=== PATIENT | female | born 2000 | race Caucasian/White ===

== ENCOUNTER 2023-10-16 09:05 | Emergency (ER) | payer OTHER, SELFPAY ==
[2023-10-16 09:09] VITALS: BP 141/84; PULSE 109; RESP 18; TEMP 36.7; O2SAT 99; BMI 28.3
--- NOTE | 2023-10-16 09:27 | ED.FEMALEGU1 ---
HPI - Female Genitourinary General Chief complaint: Vaginal Bleeding Stated complaint: SPOTTING AND CRAPING Time Seen by Provider: 10/16/23 09:14 Source: patient Mode of arrival: walk-in Limitations: no limitations History of Present Illness HPI Narrative: 23-year-old female presents to the emergency department for vaginal spotting. She is proximally seven weeks' based on her last period. She has no abdominal pain and there is been no trauma. It began last night. She is one para zero. Related Data Allergies Allergy/AdvReac Type Severity Reaction Status Date / Time No Known Drug Allergies Allergy Verified 10/16/23 09:12 Review of Systems ROS Narrative A ten point review of systems is negative except as noted above. PFSH PFSH Social History Smoking status: Never smoker Exam Narrative Exam Narrative: Nurses note and vital signs reviewed and patient is not hypoxic. General: The patient appears well and in no apparent distress. Patient is resting comfortably on cart. Skin: Warm, dry, no pallor noted. There is no rash noted. Head: Normocephalic, atraumatic Eye: Normal conjunctiva, no drainage Ears, Nose, Mouth, and Throat: oral mucosa is moist. Nares patent. Cardiovascular: Regular Rate and Rhythm Respiratory: Patient is in no distress, no accessory muscle use, lungs are clear to auscultation, no wheezing, rales or rhonchi Back: non-tender GI: soft nontender and nondistended Musculoskeletal: The patient has no evidence of calf tenderness, no pitting edema, symmetrical pulses noted bilaterally Neurological: A&O, normal speech Psychiatric: Cooperative Constitutional Vital Signs, click to edit/add: Last Vital Signs Temp 98.0 F 10/16/23 09:09 Pulse 85 10/16/23 11:03 Resp 16 10/16/23 11:03 BP 113/65 10/16/23 11:03 Pulse Ox 100 10/16/23 11:03 O2 Del Method Room Air 10/16/23 09:09 Course Vital Signs Vital signs: Vital Signs Temperature 98.0 F 10/16/23 09:09 Pulse Rate 109 H 10/16/23 09:09 Respiratory Rate 18 10/16/23 09:09 Blood Pressure 141/84 10/16/23 09:09 Pulse Oximetry 99 10/16/23 09:09 Oxygen Delivery Method Room Air 10/16/23 09:09 Temperature 98.0 F 10/16/23 09:09 Pulse Rate 85 10/16/23 11:03 Respiratory Rate 16 10/16/23 11:03 Blood Pressure 113/65 10/16/23 11:03 Pulse Oximetry 100 10/16/23 11:03 Oxygen Delivery Method Room Air 10/16/23 09:09 MDM - Female Genitourinary MDM Narrative Medical decision making narrative: the patient passed a large clot here and was sent for pathology. HCG titer is 5489 but ultrasound does not show intrauterine or ectopic. She has likely had miscarriage. 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 Findings are discussed thoroughly with the patient. blood type A positive. there is no clinical evidence of ectopiic . Differential Diagnosis Differential diagnosis: Likely other (threatened miscarriage, miscarriage, ectopic ) Lab Data Labs: Lab Results 10/16/23 Range/Units 09:21 WBC 9.1 (4.0-11.0) 10^3/uL RBC 4.05 L (4.20-5.40) 10^6/uL Hgb 12.3 (12.0-16.0) g/dL Hct 37.2 (36.0-48.0) % MCV 91.9 (81.0-99.0) fL MCH 30.4 (26.7-34.0) pg MCHC 33.1 (29.9-35.2) g/dL RDW 12.4 (11.0-15.0) % Plt Count 304 (150-450) 10^3/uL MPV 9.0 L (9.5-13.5) fL Neut % (Auto) 64.2 (43.0-75.0) % Lymph % (Auto) 29.4 (20.5-60.0) % [place] % (Auto) 4.8 (1.7-12.0) % Eos % (Auto) 0.7 L (0.9-7.0) % Baso % (Auto) 0.7 (0.2-2.0) % Neut # (Auto) 5.8 (1.4-6.5) 10^3/uL Lymph # (Auto) 2.7 (1.2-3.8) 10^3/uL [place] # (Auto) 0.4 (0.3-0.8) 10^3/uL Eos # (Auto) 0.1 (0.0-0.7) 10^3/uL Baso # (Auto) 0.1 (0.0-0.1) 10^3/uL Abs Immat Gran (auto) 0.02 (0.00-0.03) 10^3/uL Imm/Tot Granulo (auto) 0.2 (0.0-0.5) % Sodium 139 (136-145) mmol/L Potassium 3.3 L (3.5-5.1) mmol/L Chloride 102 (98-107) mmol/L Carbon Dioxide 22.6 (21.0-32.0) mmol/L Anion Gap 17.7 BUN 13.0 (7.0-18.0) mg/dL Creatinine 0.84 (0.55-1.02) mg/dL Est GFR ( Amer) >60 (>=60) Est GFR (Non-Af Amer) >60 (>=60) BUN/Creatinine Ratio 15.5 Glucose 99 (74-106) mg/dL Calcium 9.0 (8.5-10.1) mg/dL HCG, Quant 5489 mIU/mL Blood Type A Positive Imaging Data pelvic ultrasound: Radiologist's impression: Procedure: US OB transvaginal PROCEDURE: US OB transvaginal, 10/16/2023 10:25 AM EST CLINICAL INDICATIONS: Encounter for first trimester . Vaginal bleeding for 12 hours 1 para 0 LMP 08/22/2023 Expected gestational age by LMP: 7 weeks 6 days Expected MACIEJ by LMP: 05/28/2024 COMPARISON: None TECHNIQUE: Transvaginal first trimester obstetric sonogram, grayscale color and spectral evaluation. FINDINGS: Uterus: Mild heterogeneous thickening of the endotracheal echo complex is seen up to 2.0 cm. No sign of intrauterine confirmed. A focal uterine abnormality is not demonstrated. Maternal right ovary: 3.1 x 2.4 x 1.8 cm, volume 7 mL. Normal sonographic morphology. Maternal left ovary: 2.0 x 2.9 x 2.2 cm, volume 7 mL. Normal sonographic morphology. Mild pelvic free fluid in the cul-de-sac noted. IMPRESSION: 1. uncertain location. No sign of intrauterine or extrauterine identified. There is thickening of the endometrial echo complex up to 2.0 cm. Differential considerations include incomplete spontaneous with retained products of conception, too early to confirm by sonography, ectopic . Correlation with serial quantitative beta-hCG and follow-up sonography needed 2. Normal bilateral maternal ovarian sonographic morphology 3. Mild pelvic free fluid Electronically authenticated by: CARLYLE HENRY Date: 10/16/2023 11:08 Discharge Plan Discharge Chief Complaint: Vaginal Bleeding Clinical Impression: Vaginal bleeding in Patient Disposition: Home, Self-Care Time of Disposition Decision: 11:28 Condition: Good Mode of Transportation: Private Vehicle Instructions: Miscarriage (ED), Threatened Miscarriage (ED) Additional Instructions: Follow-up with Dr. Reed Stand Alone Forms: Portal Instructions Referrals: Physician,Non-Staff, MD [Primary Care Provider] - 1 week
[2023-10-16 09:33] LABS: Basophils Absolute Auto 0.1 10^3/uL (0.0-0.1); Basophils Percent Auto 0.7 % (0.2-2.0); Eosinophils Absolute Auto 0.1 10^3/uL (0.0-0.7); Eosinophils Percent Auto 0.7 % (0.9-7.0); Hematocrit 37.2 % (36.0-48.0); Hemoglobin 12.3 g/dL (12.0-16.0); Immature Granulocytes Abs Auto 0.02 10^3/uL (0.00-0.03); Immature Granulocytes Pct Auto 0.2 % (0.0-0.5); Lymphocytes Absolute Auto 2.7 10^3/uL (1.2-3.8); Lymphocytes Percent Auto 29.4 % (20.5-60.0); Mean Corpuscular HGB Conc 33.1 g/dL (29.9-35.2); Mean Corpuscular Hemoglobin 30.4 pg (26.7-34.0); Mean Corpuscular Volume 91.9 fL (81.0-99.0); Monocytes Absolute Auto 0.4 10^3/uL (0.3-0.8); Monocytes Percent Auto 4.8 % (1.7-12.0); Neutrophils Absolute Auto 5.8 10^3/uL (1.4-6.5); Neutrophils Percent Auto 64.2 % (43.0-75.0); Platelet Count 304 10^3/uL (150-450); Red Blood Count 4.05 10^6/uL (4.20-5.40); Red Cell Distribution Width 12.4 % (11.0-15.0); White Blood Count 9.1 10^3/uL (4.0-11.0)
[2023-10-16 09:39] LABS: Anion Gap 17.7; BUN Creatinine Ratio 15.5; Carbon Dioxide 22.6 mmol/L (21.0-32.0); Chloride 102 mmol/L (98-107); Estimated GFR (African America >60 (>=60); Estimated GFR (Non-African Ame >60 (>=60); Glucose 99 mg/dL (74-106); Potassium 3.3 mmol/L (3.5-5.1); Sodium 139 mmol/L (136-145)
[2023-10-16 10:07] LABS: HCG Quantitative 5489 mIU/mL
--- NOTE | 2023-10-16 10:23 | US_ITS ---
The [address] [address] Patient Name: ANU REBOLLEDO MRN: [id number] date: 2000 Sex: F Assigned Patient Location: ER Current Patient Location: ER Accession/Order Number: [id number] Exam Date: 10/16/2023 10:25 Report Date: 10/16/2023 11:08 At the request of: ЕЛЕНА BECKFORD Procedure: US OB transvaginal PROCEDURE: US OB transvaginal, 10/16/2023 10:25 AM EST CLINICAL INDICATIONS: Encounter for first trimester . Vaginal bleeding for 12 hours 1 para 0 LMP 08/22/2023 Expected gestational age by LMP: 7 weeks 6 days Expected MACIEJ by LMP: 05/28/2024 COMPARISON: None TECHNIQUE: Transvaginal first trimester obstetric sonogram, grayscale color and spectral evaluation. FINDINGS: Uterus: Mild heterogeneous thickening of the endotracheal echo complex is seen up to 2.0 cm. No sign of intrauterine confirmed. A focal uterine abnormality is not demonstrated. Maternal right ovary: 3.1 x 2.4 x 1.8 cm, volume 7 mL. Normal sonographic morphology. Maternal left ovary: 2.0 x 2.9 x 2.2 cm, volume 7 mL. Normal sonographic morphology. Mild pelvic free fluid in the cul-de-sac noted. US/US OB transvaginal IMPRESSION: 1. uncertain location. No sign of intrauterine or extrauterine identified. There is thickening of the endometrial echo complex up to 2.0 cm. Differential considerations include incomplete spontaneous with retained products of conception, too early to confirm by sonography, ectopic . Correlation with serial quantitative beta-hCG and follow-up sonography needed 2. Normal bilateral maternal ovarian sonographic morphology 3. Mild pelvic free fluid Electronically authenticated by: CARLYLE HENRY Date: 10/16/2023 11:08
[2023-10-16 11:03] VITALS: BP 113/65; PULSE 85; RESP 16; O2SAT 100
[2023-10-16 11:37] VITALS: BP 122/75; PULSE 81; RESP 16; O2SAT 100
== END 2023-10-16 11:41 | disposition home or self-care (01) ==
PROVIDERS: Emergency Provider Emergency Medicine
DX: O20.9 Hemorrhage in early pregnancy, unspecified (principal); Z3A.01 Less than 8 weeks gestation of pregnancy
CPT/HCPCS: 36415; 76817; 80048; 84702; 85025; 86900; 86901; 88304; 99284

== ENCOUNTER 2023-10-20 15:18 | Outpatient (OUT) | payer OTHER, SELFPAY ==
[2023-10-20 16:19] LABS: HCG Quantitative 154 mIU/mL
== END 2023-10-20 15:19 | disposition home or self-care (01) ==
LOC: LAB 15:19
PROVIDERS: Visit Provider Obstetrics & Gynecology
DX: O03.9 Complete or unspecified spontaneous abortion without complication (principal)
CPT/HCPCS: 36415; 84702

== ENCOUNTER 2023-10-28 08:26 | Outpatient (OUT) | payer OTHER, SELFPAY ==
--- OUTSIDE RECORDS SUMMARY | 2023-10-28 08:32 | XMS_ITS | CCD ---
Author Name Unknown Address [address] [place] [address] Organization [facility] Care Team Providers Care Oil Expert Name Role Phone ELIAS THOMAS Unavailable Unavailable ELIAS THOMAS Unavailable Unavailable ELIAS THOMAS Unavailable Unavailable ELIAS TOHMAS Unavailable Unavailable ELIAS THOMAS Primary Care Unavailable WILLI GATES Attending Unavailable Elias Thomas Primary Care Provider DO Neal Campoverde Attending Unavailable MAMIE CASILLAS Attending Unavailable Medications Current Medications Medication Drug Class(es) Dates Sig (Normalized) Sig (Original) cyclobenzaprine hydrochloride 10 mg oral tablet (1 source) Muscle Relaxant Start: 01-14-2020 End: 01-24-2020 take 1 tablet by mouth three times daily as needed for muscle spasms cyclobenzaprine (FLEXERIL) 10 MG tablet Take 1 tablet by mouth 3 times daily as needed for Muscle spasms 30 tablet 0 01/14/2020 01/24/2020 Active 2 ml ketorolac tromethamine 30 mg/ml cartridge (2 sources) Nonsteroidal Anti-inflammatory Drug, Cyclooxygenase Inhibitor Start: 01-14-2020 ketorolac (TORADOL) injection 60 mg Start: 01-14-2020 take 1 tablet by fernando th every six hours as needed for pain ketorolac (TORADOL) 10 MG tablet Take 1 tablet by mouth every 6 hours as needed for Pain 20 tablet 0 01/14/2020 Active Problems Active Problems Problem Classification Problem Date Documented Da te Episodic/Chronic External cause codes: Fall (1 source) Fall; Translations: [Fall, initial encounter] Other upper respiratory infections (1 source) Acute pharyngitis, unspecified; Translations: [Acute pharyngitis, unspecified] Onset: 10-07-2018 Episodic Superficial injury; contusion (1 source) Contusion of chest; Translations: [Contusion of chest wall, unspecified laterality, subsequent encounter] Episodic Tuberculosis (1 source) Tuberculosis Onset: 04-04-2018 Unclassified (2 sources) Acute pharyngitis, unspecified / J02.9(ICD-9) Onset: 10-07-2018 Unclassified (2 sources) Encounter for screening for other viral diseases / Z11.59(ICD-9) Onset: 04-04-2018 Past or Other Problems Problem Classification Problem Date Documented Da te Episodic/Chronic Unclassified (1 source) Encounter for screening for other viral diseases; Translations: [Encounter for screening for other viral diseases] Onset: 04-04-2018 Results Test Name Value Interpretation Reference Range Facil ity XR RIBS BILATERAL (3 VIEWS)o n 01-15-2020 XR RIBS BILATERAL (3 VIEWS) EXAMINATION: XR RIBS BILATERAL (3 VIEWS) CLINICAL HISTORY: Status post fall on concrete steps this morning. Back pain COMPARISONS: None FINDINGS: 5 views of the chest and ribs are submitted. The cardiac silhouette is of normal size configuration. Pulmonary vascular unremarkable. Right sided trachea. No focal infiltrates. No effusions. No Pneumothoraces. Additional views of left and right ribs show no fracture. IMPRESSION: NO ACUTE ACTIVE CARDIOPULMONARY PROCESS. NO ACUTE FRACTURES Interpreted by: Frantz Urias MD Signed by: Frantz Urias MD 01/14/20 Final result Normal [facility] XR RIBS BILATERAL (3 VIEWS)o n 01-14-2020 INR Coag (Bld) [Relative time] NO ACUTE ACTIVE CARDIOPULMONARY PROCESS. NO ACUTE FRACTURES [place], [place] EXAMINATION: XR RIBS BILATERAL (3 VIEWS) CLINICAL HISTORY: Status post fall on concrete steps this morning. Back pain COMPARISONS: None FINDINGS: 5 views of the chest and ribs are submitted. The cardiac silhouette is of normal size configuration. Pulmonary vascular unremarkable. Right sided trachea. No focal infiltrates. No effusions. No Pneumothoraces. Additional views of left and right ribs show no fracture. [place], [place] Vj, Chpo Incoming Radiant Results From [facility] - 01/14/2020 11:44 PM EDT EXAMINATION: XR RIBS BILATERAL (3 VIEWS) CLINICAL HISTORY: Status post fall on concrete steps this morning. Back pain COMPARISONS: None FINDINGS: 5 views of the chest and ribs are submitted. The cardiac silhouette is of normal size configuration. Pulmonary vascular unremarkable. Right sided trachea. No focal infiltrates. No effusions. No Pneumothoraces. Additional views of left and right ribs show no fracture. IMPRESSION: NO ACUTE ACTIVE CARDIOPULMONARY PROCESS. NO ACUTE FRACTURES [facility], [place] Culture, Respiratory (Upper) on 10-07-2018 Culture, Respiratory (Upper) BILL#: [id number] : 89 AGE: SEX:FFRANKSOURCE: Throat/Pharynx COLLECTED: 10/07/18 05:25ANTIBIOTICS AT ARABELLA.: RECEIVED : 10/10/18 11:49SITE:R E S U L T SRESPIRATORY CULTURE,UPPER FINAL 10/12/18 08:05NORMAL THROAT ANDREW. Normal [facility] Comment on above: Performed By: #### CXRSU ####[facility] [id number] [place] [address] Hepatitis B Surface Abon Hepatitis B Surface Ab 4.4 mIU/mL Normal <10 [facility] Comment on above: Result Comment: INTERPRETIVE CRITERIA:<1 0 mIU/mL....NONREACTIVE>=10 mIU/mL...REACTIVE.Patients receiving more than 5 mg/day of biotin may have interfin test results. A sample should be taken no sooner than eightafter previous dose. Contact [phone] for additional infor Hepatitis B Surface Antigeno n 04-04-2018 Hepatitis B Surface Antigen NONREACTIVE Normal NONREACTIVE [facility] Comment on above: Result Comment: Patients receiving more than 5 mg/day of biotin may have interfin test results. A sample should be taken no sooner than eightafter previous dose. Contact [phone] for additional infor Quantiferon- TB Gold in Tube on 04-04-2018 Quantiferon- Mitogen minus NIL 9.62 IU/mL Normal [facility] Comment on above: Performed By: #### QFTG ####[id number] [place] [address] Quantiferon- NIL 0.11 IU/mL Normal [facility] Comment on above: Result Comment: Performed by CARRIE broussard,[address] [place], [place] [id number] [email or web address], Ashwin Cramer MD - Lab. Director Performed By: #### Q FTG ####[id number] [place] [address] Quantiferon-TB Gold in Tube Negative Normal Negative [facility] Comment on above: Result Comment: INTERPRETIVE INFORMATION : QuantiFERON-TB Gold In-TubeInterferon gamma release is measured for specimens from eachof the three collection tubes. A qualitative result (Negative,Positive, or Indeterminate) is based on interpretation of thethree values, NIL, MITOGEN minus NIL (MITOGEN-NIL), and TBminus NIL (TB-NIL). The NIL value represents nonspecificreactivity produced by the patient specimen. The MITOGEN-NILvalue serves as the positive control for the patient specimen,demonstrating successful lymphocyte activity. The TB-NIL valuerepresents lymphocyte reactivity specifically stimulated bythe TB antigen. An overall Negative result does not completelyrule out TB infection.A false-positive result in the absence of other clinicalevidence of TB infection is not uncommon. Refer to: UpdatedGuidelines for Using Interferon Gamma Release Assays to DetectMycobacterium tuberculosis Infection --- [place], 2010(http://www.cdc.gov/mmwr/preview/mmwrhtml/zg3337c3.htm), forinformation concerning test performance in low-prevalencepopulations and use in occupational screening. Performed By: #### Q FTG ####[id number] [place] [address] Vital Signs Date Time Vital Sign Value Performing Clinician Facility 01-15-2020 00:0400 Body [facility] 98.01 [degF[facility] [place] 01-15-2020 00:0400 BP Diastolic 65 mm[Hg] [place] , [place] 01-15-2020 00:0400 BP Systolic 130 mm[Hg] [facility] [place] 01-15-2020 00:0400 Pulse (Heart Rate) 65 /min [facility], [place] 01-15-2020 00:0400 Pulse Oximetry 98 % [place], [place] 01-15-2020 00:11-0400 Respiratory Rate 18 /min Willi Gates [facility], SARAH 01-14-2020 22:40-0400 BMI (Body Mass Index) 30.79 kg/m2 Willi Gates [facility], SARAH 01-14-2020 22:40-0400 Body weight 83.92 kg Willi Gates [facility] , SARAH 01-14-2020 22:40-0400 Height 165.1 cm Willi Gates [place], [place] 04-04-2018 18:43-0400 Body mass index (BMI) [Ratio] 0.00 IU/mL [facility] Comment on above: Performed By: #### QFTG ####[id number] [place] [address] Encounters Encounter Date Encounter Type Care Provider Facility Start: 10-20-2023 End: 10-20-2023 ambulatory MAMIE CASILLAS Not Available Start: 07-29-2023 ambulatory DO Neal Campoverde Fac ility:[facility] Start: 01-15-2020 End: 01-15-2020 Emergency department patient visit ELIAS Tovar [facility] Start: 01-14-2020 End: 01-15-2020 Emergency department patient visit Willi Gates Work Phone: [facility] ED Comment on above: Contusion of chest w all, unspecified laterality, subsequent encounter (Primary Dx); Fall, initial encounter Start: 10-07-2018 Patient encounter procedure ELIAS THOMAS Facility:[facility] Start: 04-04-2018 Patient encounter procedure ELIAS HARVEYVickey Facility:[facility] Procedures Date Procedure Procedure Detail Performing Clinician Start: 01-15-2020 Radex ribs bilateral 3 views ELIAS THOMAS Start: 01-14-2020 Radex ribs bilateral 3 views Willi Gates Work Phone: Plan of Treatment Date Care Activity Detail Author Start: 2049 Shingles Vaccine (1 of 2) Shingles V accine (1 of 2) [place] Start: 06-25-2019 Influenza vaccination Flu vaccine (# 1) [place] Start: 2015 Chlamydia screen Chlamydia screen [place], [place] Start: 2014 HIV screen HIV screen [place], [place] Start: 2010 DTaP/Tdap/Td vaccine (6 - Tdap) DTaP/Tdap/Td vaccine (6 - Tdap) [place] Start: 2010 HPV vaccine (1 - 2-d ose series) HPV vaccine (1 - 2-dose series) [place] Start: 2005 Pneumococcal 0-64 ye ars Vaccine (1 of 1 - PPSV23) Pneumococcal 0-64 years Vaccine (1 of 1 - PPSV23) [place] Start: 2000 Varicella vaccine (1 of 2 - 2-dose childhood series) Varicella vaccine (1 of 2 - 2-dose childhood series) [place] Payers Date Payer Category Payer Unknown [id number] 2000 Unknown [id number] 2000 Unknown [id number] 2000 Unknown [id number] 1999 Unknown [id number] Unknown [employer] [address] xxxxxxxxxxxx Effective for all dates [phone] [address] [place] [address] xxxxxxxxxxxx [id number] Social History Date Type Detail Facility Start: 01-14-2020 Tobacco smoking stat us MAIS Current some day smoker [place] Start: 01-14-2020 Alcohol intake Current drinke r of alcohol (finding) [place] Sex Assigned At Not on file [place] Progress note 05-02-2021 Note Date & Type Note Facility 05-02-2021 Note HNO ID: [id number] Author: Christel Garrison, OD Service: ? Author Type: BREAST WORKER Type: Progress Notes Filed: 05/02/2021 12:10 PM Note Text: ASSESSMENT/PLAN: 1. 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 I have seen and examined this patient. I have discussed the case and the management of this patient's care with the Resident/Fellow, if applicable. I also have reviewed and agree with the assessment and plan as stated above and agree with all of its relevant components. Christel Garrison, OD May 02, 2021 12:10 PM [facility] Summary Purpose Family History No Family History Records FoundNo Family History Records FoundNo Family History Records FoundNo Family History Records FoundNo Family History Records Found Advance Directives No Advanced Directives Records FoundDocuments on File Type Date Recorded Patient Public Health Service Officer Expl anation Advance Directives and Living Will Power of Digital Advertising Analyst Discharge Instructions * Attachments The following attachments cannot be sent through Care Everywhere. * Chest Contusion ([place]) * Rib Contusion ([place]) documented in this encounter Assessments Diagnosis Contusion of chest wall, unspecified laterality, subsequent encounter Fall, initial encounter Additional Source Comments INFORMATION SOURCE (unrecogn ized section and content) DATE CREATED AUTHOR 10/15/2018 [facility] DATE CREATED AUTHOR AUTHOR'S ORGANIZ ATION 01/14/2020 [facility] DATE CREATED AUTHOR AUTHOR'S ORGANIZ ATION 11/22/2021 [facility] DATE CREATED AUTHOR AUTHOR'S ORGANIZ ATION 08/01/2023 [facility] DATE CREATED AUTHOR AUTHOR'S ORGANIZ ATION 10/22/2023 [facility] EPIC Reason for Visit (unrecogniz ed section and content) Reason Comments Fall Fell on concrete yamileth ps. Worried about cracking a rib FOR RECORDS PERTAINING TO PATIENTS WHO ARE OR HAVE BEEN ENROLLED IN A CHEMICAL DEPENDENCY/SUBSTANCEABUSE PROGRAM, SOME INFORMATION MAY BE OMITTED. This clinical summary was aggregated from multiple sources. Caution should be exercised in using it in the provision of clinical care. This summary normalizes information from multiple sources, and as a consequence, information in this document may materially change the coding, format and clinical context of patient data. In addition, data may be omitted in some cases. CLINICAL DECISIONS SHOULD BE BASED ON THE PRIMARY CLINICAL RECORDS. [facility] [employer] [facility]. provides no warranty or guarantee of the accuracy or completeness of information in this document.
[2023-10-28 09:21] LABS: HCG Quantitative 9 mIU/mL
== END 2023-10-28 08:27 | disposition home or self-care (01) ==
LOC: LAB 08:29
PROVIDERS: Visit Provider Obstetrics & Gynecology
DX: O03.9 Complete or unspecified spontaneous abortion without complication (principal)
CPT/HCPCS: 36415; 84702

== ENCOUNTER 2023-11-04 09:43 | Outpatient (OUT) | payer OTHER, SELFPAY ==
[2023-11-04 10:37] LABS: HCG Quantitative 2 mIU/mL
== END 2023-11-04 09:44 | disposition home or self-care (01) ==
LOC: LAB 09:44
PROVIDERS: Visit Provider Obstetrics & Gynecology
DX: O03.9 Complete or unspecified spontaneous abortion without complication (principal)
CPT/HCPCS: 36415; 84702

== ENCOUNTER 2024-02-14 12:20 | Emergency (ER) | payer OTHER, SELFPAY ==
[2024-02-14 12:25] VITALS: BP 123/80; PULSE 92; TEMP 36.5; O2SAT 98; BMI 32.4
[2024-02-14 12:42] LABS: Bilirubin Urine NEGATIVE (NEGATIVE); Blood Urine MODERATE (NEGATIVE); Clarity Urine CLEAR (CLEAR); Color Urine YELLOW (YELLOW); Glucose Urine UA NEGATIVE (NEGATIVE); Ketones Urine NEGATIVE (NEGATIVE); Leukocyte Esterase Urine TRACE (NEGATIVE); Nitrite Urine NEGATIVE (NEGATIVE); Protein Urine 30 mg/dL (NEG/TRACE); Specific Gravity Urine 1.025 (1.005-1.025); Urobilinogen Urine 0.2 EU/dL (0.2-1.0)
[2024-02-14 12:45] LABS: HCG Qualitative Urine* NEGATIVE (NEGATIVE)
[2024-02-14 12:56] LABS: Urine Microscopic Indicated YES
[2024-02-14 13:01] LABS: Bacteria Urine MODERATE #/HPF (NONE SEEN); Mucus Urine NONE SEEN (NONE SEEN)
[2024-02-14 13:02] LABS: Squamous Epithelial Cell Urine MODERATE #/LPF (NONE/RARE); Urine Culture Indicated YES
--- OUTSIDE RECORDS SUMMARY | 2024-02-14 13:04 | XMS_ITS | CCD ---
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 Role Phone ELIAS THOMAS Unavailable Unavailable ELIAS THOMAS Unavailable Unavailable ELIAS THOMAS Unavailable Unavailable ELIAS THOMAS Unavailable Unavailable ELIAS THOMAS Primary Care Unavailable WILLI GATES Attending Unavailable Elias Thomas Primary Care Provider [phone] MAMIE CASILLAS Attending Unavailable Neal Campoverde Attending Unavailable Medications Current Medications Medication Drug [...] Frantz Urias MD 01/14/20 Final result Normal [facility] XR RIBS BILATERAL (3 VIEWS)o n 01-14-2020 INR Coag (Bld) [Relative time] NO ACUTE ACTIVE CARDIOPULMONARY PROCESS. NO ACUTE FRACTURES [place], [place] EXAMINATION: XR RIBS BILATERAL (3 VIEWS) CLINICAL HISTORY: Status post fall on concrete steps this morning. Back pain COMPARISONS: None FINDINGS: 5 views of the chest and ribs are submitted. The cardiac silhouette is of normal size configuration. Pulmonary vascular unremarkable. Right sided trachea. No focal infiltrates. No effusions. No Pneumothoraces. Additional views of left and right ribs show no fracture. [place], [place] Vj, Chpo Incoming Radiant Results From [employer] - 01/14/2020 11:44 PM EDT EXAMINATION: XR [...] ACUTE ACTIVE CARDIOPULMONARY PROCESS. NO ACUTE FRACTURES [facility], [place] Culture, Respiratory (Upper) on 10-07-2018 Culture, Respiratory (Upper) BILL#: [id number] : 89 AGE: SEX:FFRANKSOURCE: Throat/Pharynx COLLECTED: 10/07/18 05:25ANTIBIOTICS AT ARABELLA.: RECEIVED : 10/10/18 11:49SITE:R E S U L T SRESPIRATORY CULTURE,UPPER FINAL 10/12/18 08:05NORMAL THROAT ANDREW. Normal [facility] Healthcare Comment on above: Performed By: #### CXRSU ####[facility] [address] [place] [address] Hepatitis B Surface Abon Hepatitis B Surface Ab 4.4 mIU/mL Normal <10 [facility] Healthcare Comment on above: Result Comment: INTERPRETIVE CRITERIA:<1 0 mIU/mL....NONREACTIVE>=10 mIU/mL...REACTIVE.Patients receiving more than 5 mg/day of biotin may have interfin test results. A sample should be taken no sooner than eightafter previous dose. Contact [phone] for additional infor Hepatitis B Surface Antigeno n 04-04-2018 Hepatitis B Surface Antigen NONREACTIVE Normal NONREACTIVE [facility] Comment on above: Result Comment: Patients receiving more than 5 mg/day of biotin may have interfin test results. A sample should be taken no sooner than eightafter previous dose. Contact [phone] for additional infor Quantiferon- TB Gold in Tube on 04-04-2018 Quantiferon- Mitogen minus NIL 9.62 IU/mL Normal [facility] Healthcare Comment on above: Performed By: #### QFTG ####[id number] [place] [address] Quantiferon- NIL 0.11 IU/mL Normal [facility] Comment on above: Result Comment: Performed by CARRIE broussard,[address] [place] [address] [employer], Ashwin Cramer MD - Lab. Director Performed By: #### Q FTG ####[id number] [place] [address] Quantiferon-TB Gold in Tube Negative Normal Negative [facility] Healthcare Comment on above: Result Comment: INTERPRETIVE INFORMATION [...] to DetectMycobacterium tuberculosis Infection --- [place], 2010(http://www.cdc.gov/mmwr/preview/mmwrhtml/rh4615x5.htm), forinformation concerning test performance in low-prevalencepopulations and use in occupational screening. Performed By: #### Q FTG ####[id number] [place] [address] Vital Signs Date Time Vital Sign Value Performing Clinician Facility 01-15-2020 00:0400 Body Temperature 98.01 [degF] Davy [facility], [place] 01-15-2020 00:110400 BP Diastolic 65 mm[Hg] [facility]y [facility] , [place] 01-15-2020 00:0400 BP Systolic 130 mm[Hg] [facility] [place] 01-15-2020 00:0400 Pulse (Heart Rate) 65 /min [facility], [place] 01-15-2020 00:0400 Pulse Oximetry 98 % [facility] , [place] 01-15-2020 00:0400 Respiratory Rate 18 /min Willi Gates [facility] H, SARAH 01-14-2020 22:40-0400 BMI (Body Mass Index) 30.79 kg/m2 Willi Gates [facility], SARAH 01-14-2020 22:40-0400 Body weight 83.92 kg Willi Gates [facility] , SARAH 01-14-2020 22:40-0400 Height 165.1 cm Willi Gates [place], [place] 04-04-2018 18:43-0400 Body mass index (BMI) [Ratio] 0.00 IU/mL [facility] Comment on above: Performed By: #### QFTG ####[id number] [place] [address] Encounters Encounter Date Encounter Type Care Provider Facility Start: 10-20-2023 End: 10-20-2023 ambulatory MAMIE SONJA Not Available Start: 07-29-2023 End: 10-28-2023 ambulatory Neal Campoverde Facility:[facility] Start: 01-15-2020 End: 01-15-2020 [facility] Start: 01-14-2020 End: 01-15-2020 Emergency department patient visit Willi Gates Work Phone: [facility] ED Comment on above: Contusion of chest w all, unspecified laterality, subsequent encounter (Primary Dx); Fall, initial encounter Start: 10-07-2018 Patient encounter procedure ELIAS THOMAS Facility:[facility] Start: 04-04-2018 [facility] Procedures Date Procedure Procedure Detail Performing Clinician Start: 01-15-2020 Radex ribs bilateral 3 views ELIAS THOMAS Start: 01-14-2020 Radex ribs bilateral 3 views Willi Stephanie Gates Work Phone: Plan of Treatment Date Care Activity Detail Author Start: 2049 Shingles Vaccine (1 of 2) Shingles V accine (1 of 2) [place], [place] Start: 06-25-2019 Influenza vaccination Flu vaccine (# 1) [place], [place] Start: 2015 Chlamydia screen Chlamydia screen [place], [place] Start: 2014 HIV screen HIV screen [place], [place] Start: 2010 DTaP/Tdap/Td vaccine (6 - Tdap) DTaP/Tdap/Td vaccine (6 - Tdap) [place], [place] Start: 2010 HPV vaccine (1 - 2-d ose series) HPV vaccine (1 - 2-dose series) [place], [place] Start: 2005 Pneumococcal 0-64 ye ars Vaccine (1 of 1 - PPSV23) Pneumococcal 0-64 years Vaccine (1 of 1 - PPSV23) [place], [place] Start: 2000 Varicella vaccine (1 of 2 - 2-dose childhood series) Varicella vaccine (1 of 2 - 2-dose childhood series) [place], [place] Payers Date Payer Category Payer Unknown [id number] 1999 Unknown [id number] 1999 Unknown [id number] 1999 Unknown [id number] 1999 Unknown [id number] Unknown [employer] [address] xxxxxxxxxxxx Effective for all dates [phone] [address] [place] [address] xxxxxxxxxxxx [id number] Social History Date Type Detail Facility Start: 01-14-2020 Tobacco smoking stat us MEIS Current some day smoker [place], [place] Start: 01-14-2020 Alcohol intake Current drinke r of alcohol (finding) [place], [place] Sex Assigned At Not on file [place], [place] Progress note 05-02-2021 Note Date & Type Note Facility 05-02-2021 Note HNO ID: [id number] Author: Christel Garrison, OD Service: ? Author Type: RETAIL AND PROMOTIONS COORDINATOR Type: Progress Notes Filed: 05/02/2021 12:10 PM [...] Garrison, OD May 02, 2021 12:10 PM [facility] Summary Purpose Family History No Family History Records FoundNo Family History Records FoundNo Family History Records FoundNo Family History Records FoundNo Family History Records Found Advance Directives No Advanced Directives Records FoundDocuments on File Type Date Recorded Patient Conventional Underwriter Expl anation Advance Directives and Living Will Power of Court Attendant Discharge Instructions * Attachments The following attachments cannot be sent through Care Everywhere. * Chest Contusion (Lithuanian) * Rib Contusion (Lithuanian) documented in this encounter Assessments Diagnosis Contusion of chest wall, unspecified laterality, subsequent encounter Fall, initial encounter Additional Source Comments INFORMATION SOURCE (unrecogn ized section and content) DATE CREATED AUTHOR 10/15/2018 [facility] DATE CREATED AUTHOR AUTHOR'S ORGANIZ ATION 01/14/[address] [facility] ital DATE CREATED AUTHOR AUTHOR'S ORGANIZ ATION 11/22/2021 [facility] DATE CREATED AUTHOR AUTHOR'S ORGANIZ ATION 10/22/2023 [facility] DATE CREATED AUTHOR AUTHOR'S ORGANIZ ATION 10/28/2023 [facility] Reason for Visit (unrecogniz ed section and [...] BE BASED ON THE PRIMARY CLINICAL RECORDS. [employer] [facility]. provides no warranty or guarantee of the accuracy or completeness of information in this document.
[2024-02-14 13:10] LABS: Basophils Absolute Auto 0.1 10^3/uL (0.0-0.1); Basophils Percent Auto 0.6 % (0.2-2.0); Eosinophils Absolute Auto 0.1 10^3/uL (0.0-0.7); Eosinophils Percent Auto 1.3 % (0.9-7.0); Hematocrit 39.8 % (36.0-48.0); Immature Granulocytes Abs Auto 0.01 10^3/uL (0.00-0.03); Immature Granulocytes Pct Auto 0.1 % (0.0-0.5); Lymphocytes Absolute Auto 3.7 10^3/uL (1.2-3.8); Lymphocytes Percent Auto 36.5 % (20.5-60.0); Mean Corpuscular HGB Conc 32.7 g/dL (29.9-35.2); Mean Corpuscular Hemoglobin 29.8 pg (26.7-34.0); Mean Corpuscular Volume 91.3 fL (81.0-99.0); Mean Platelet Volume 9.3 fL (9.5-13.5); Monocytes Absolute Auto 0.5 10^3/uL (0.3-0.8); Monocytes Percent Auto 4.5 % (1.7-12.0); Neutrophils Absolute Auto 5.8 10^3/uL (1.4-6.5); Platelet Count 302 10^3/uL (150-450); Red Blood Count 4.36 10^6/uL (4.20-5.40); Red Cell Distribution Width 12.2 % (11.0-15.0); White Blood Count 10.2 10^3/uL (4.0-11.0)
[2024-02-14] MEDS: KETOROLAC TROMETHAMINE 30 MG/ML VIAL 15 MG IVP (13:12)
[2024-02-14 13:19] LABS: Anion Gap 14.1; BUN Creatinine Ratio 10.9; Calcium 9.3 mg/dL (8.5-10.1); Carbon Dioxide 28.2 mmol/L (21.0-32.0); Chloride 102 mmol/L (98-107); Estimated GFR (African America >60 (>=60); Estimated GFR (Non-African Ame >60 (>=60); Glucose 94 mg/dL (74-106); Potassium 3.3 mmol/L (3.5-5.1); Sodium 141 mmol/L (136-145)
--- NOTE | 2024-02-14 13:35 | CT_ITS ---
The [address] [address] Patient Name: ANU REBOLLEDO MRN: [id number] date: 2000 Sex: F Assigned Patient Location: ER Current Patient Location: ER Accession/Order Number: [id number] Exam Date: 02/14/2024 13:30 Report Date: 02/14/2024 14:07 At the request of: JANE EDGAR Procedure: CT abdomen pelvis wo con EXAM: CT abdomen pelvis wo con HISTORY: left flank pain COMPARISON: None TECHNIQUE: CT abdomen and CT pelvis studies were performed without the use of intravenous contrast. Multiple axial images were obtained. Reformatted coronal and sagittal images were obtained and reviewed. FINDINGS: Abdomen: Calcified granuloma in the left lower lobe posteriorly. Likely adjacent mild atelectatic changes. Views of the liver and spleen fail to demonstrate evidence of focal mass in either organ. Gallbladder, pancreas and adrenal glands appear grossly unremarkable. Stomach appears grossly unremarkable. Bowel loops appear grossly unremarkable. Visualized vascular structures appear grossly intact. No evidence of adenopathy in the retroperitoneum. No obvious renal mass or obstructive uropathy. Suggestion mildly edematous appearance of the left renal cortex, consider early and/or mild left pyelonephritis. No evidence of renal or ureteral calculus. Small fat filled umbilical hernia without bowel content. Pelvis: No evidence of ureteral or bladder calculus. No evidence of obstructive uropathy. No obvious bladder mass or wall thickening. Uterus appears grossly unremarkable. Likely follicles in both ovaries without obvious focal mass. Small amount of free intraperitoneal fluid posteriorly greater on the left. A few calcifications likely representing phleboliths. Visualized vascular structures appear grossly intact. No evidence of adenopathy. The appendix is visualized and appears unremarkable. Bony structures appear grossly intact. Small calcification in the left femoral head like representing bone island. Mild ill-defined sclerosis of the right femoral head likely degenerative in nature. CT/CT abdomen pelvis wo con IMPRESSION: CT abdomen and CT pelvis studies demonstrate findings which can be correlated for early and/or mild left pyelonephritis. No obvious obstructive uropathy. Likely follicles in both ovaries. Small amount of free intraperitoneal fluid in the pelvis greater on the left. Mild ill-defined sclerosis of the superior right femoral head likely degenerative in nature. Electronically authenticated by: GINA ROA Date: 02/14/2024 14:07
[2024-02-14 14:02] VITALS: BP 97/63; PULSE 1; O2SAT 99
[2024-02-14 15:13] VITALS: BP 105/65; PULSE 78; O2SAT 99
--- NOTE | 2024-02-14 16:55 | ED_ITS ---
HPI HPI - General Adult General Chief complaint: Back Pain/Injury Stated complaint: LOWER BACK PAIN Time Seen by Provider: 02/14/24 12:30 Source: patient Mode of arrival: walk-in Limitations: no limitations History of Present Illness HPI narrative: 43-year-old female to the emergency room when she left-sided flank pain. Symptoms began suddenly over the last twenty-four hours. She denies any dysuria, urgency hematuria. She chills. She denies any vomiting. No history of urinary tract infections. History of kidney stones. Related Data Previous Rx's ?Medication ?Instructions ?Recorded cephalexin 500 mg capsule 500 mg PO Q6H 7 days #28 caps 02/14/24 phenazopyridine 200 mg tablet 200 mg PO TID PRN bladder spasms 02/14/24 (Pyridium) #9 tabs Allergies Allergy/AdvReac Type Severity Reaction Status Date / Time No Known Drug Allergies Allergy Verified 10/16/23 09:12 Opioid HPI Opioid Management Most Recent Opioid Data: Last Pain Scale 0 02/14/24 14:04 Last ED Pain Assessment 02/14/24 14:04 Last MAR Pain Assessment 02/14/24 13:12 Review of Systems ROS Status of ROS 10 or more systems reviewed and unremark able except as noted in history and below PFSH PFSH Social History Smoking status: Never smoker Exam Narrative Exam Narrative: VITALS: I have reviewed the triage vital signs. GENERAL: Well developed, well appearing adult in no acute distress. NEURO: Alert and oriented. Moves all extremities. Face is symmetric and expressive. EYES: PERRL. No scleral icterus or conjunctival injection. No discharge. HENT: Normocephalic, atraumatic. Hearing is grossly intact. Nares grossly patent and without discharge. Mucous membranes moist. NECK: No JVD. Patient moves neck without restriction. CARDIO: Rhythm regular. Normal rate. No murmur, rub, or gallop. Pulses equal bilaterally in the upper and lower extremity. No lower extremity edema. PULM: Lungs clear to auscultation in all narvaez. No wheezes, rales, or rhonchi. No conversational dyspnea. No splinting, stridor, or accessory muscle use. GI/: Abdomen is soft and non-tender. Normoactive bowel sounds. EXTREMITIES: Symmetric muscle bulk. No joint swelling. No clubbing, cyanosis, or deformity. SKIN: Warm and dry. Normal turgor. No rash or lesions appreciated. PSYCH: Mood, affect, and interaction is appropriate to the setting. Constitutional Vital Signs, click to edit/add: Last Vital Signs Temp 97.7 F 02/14/24 12:25 Pulse 78 02/14/24 15:13 Resp 18 02/14/24 15:13 BP 105/65 02/14/24 15:13 Pulse Ox 99 02/14/24 15:13 O2 Del Method Room Air 02/14/24 15:13 Course Vital Signs Vital signs: Vital Signs Temperature 97.7 F 02/14/24 12:25 Pulse Rate 92 H 02/14/24 12:25 Respiratory Rate 18 02/14/24 12:25 Blood Pressure 123/80 02/14/24 12:25 Pulse Oximetry 98 02/14/24 12:25 Oxygen Delivery Method Room Air 02/14/24 12:25 Temperature 97.7 F 02/14/24 12:25 Pulse Rate 78 02/14/24 15:13 Respiratory Rate 18 02/14/24 15:13 Blood Pressure 105/65 02/14/24 15:13 Pulse Oximetry 99 02/14/24 15:13 Oxygen Delivery Method Room Air 02/14/24 15:13 Medical Decision Making MDM Narrative Medical decision making narrative: Referral to health emergency room left flank pain. Labwork is unremarkable and CT scan does show a pyelonephritis. Kidney stone. Her symptoms are well controlled. She is referred for outpatient therapy. Keflex and Pyridium prescribed. Return precautions were discussed. All questions were answered. The patient was discharged. Medical Records Medical records reviewed: Yes I reviewed the patient's medical records Lab Data Lab results reviewed: Yes I reviewed the patient's lab results Labs: Lab Results 02/14/24 02/14/24 Range/Units 12:30 12:38 WBC 10.2 (4.0-11.0) 10^3/uL RBC 4.36 (4.20-5.40) 10^6/uL Hgb 13.0 (12.0-16.0) g/dL Hct 39.8 (36.0-48.0) % MCV 91.3 (81.0-99.0) fL MCH 29.8 (26.7-34.0) pg MCHC 32.7 (29.9-35.2) g/dL RDW 12.2 (11.0-15.0) % Plt Count 302 (150-450) 10^3/uL MPV 9.3 L (9.5-13.5) fL Neut % (Auto) 57.0 (43.0-75.0) % Lymph % (Auto) 36.5 (20.5-60.0) % [place] % (Auto) 4.5 (1.7-12.0) % Eos % (Auto) 1.3 (0.9-7.0) % Baso % (Auto) 0.6 (0.2-2.0) % Neut # (Auto) 5.8 (1.4-6.5) 10^3/uL Lymph # (Auto) 3.7 (1.2-3.8) 10^3/uL [place] # (Auto) 0.5 (0.3-0.8) 10^3/uL Eos # (Auto) 0.1 (0.0-0.7) 10^3/uL Baso # (Auto) 0.1 (0.0-0.1) 10^3/uL Abs Immat Gran (auto) 0.01 (0.00-0.03) 10^3/uL Imm/Tot Granulo (auto) 0.1 (0.0-0.5) % Sodium 141 (136-145) mmol/L Potassium 3.3 L (3.5-5.1) mmol/L Chloride 102 (98-107) mmol/L Carbon Dioxide 28.2 (21.0-32.0) mmol/L Anion Gap 14.1 BUN 10.0 (7.0-18.0) mg/dL Creatinine 0.92 (0.55-1.02) mg/dL Est GFR ( Amer) >60 (>=60) Est GFR (Non-Af Amer) >60 (>=60) BUN/Creatinine Ratio 10.9 Glucose 94 (74-106) mg/dL Calcium 9.3 (8.5-10.1) mg/dL Urine Color Yellow (YELLOW) Urine Clarity Clear (CLEAR) Urine pH 6.0 (5.0-9.0) Ur Specific [place] 1.025 (1.005-1.025) Urine Protein 30 A (NEG/TRACE) mg/dL Urine Glucose (UA) Negative (NEGATIVE) mg/dL Urine Ketones Negative (NEGATIVE) mg/dL Urine Occult Blood Moderate A (NEGATIVE) Urine Nitrite Negative (NEGATIVE) Urine Bilirubin Negative (NEGATIVE) Urine Urobilinogen 0.2 (0.2-1.0) EU/dL Ur Leukocyte Esterase Trace A (NEGATIVE) Urine RBC 10-20 A (0-2) #/HPF Urine WBC 10-20 A (NONE SEEN) #/HPF Ur Squamous Epith Cells Moderate A (NONE/RARE) #/LPF Urine Bacteria Moderate A (NONE SEEN) #/HPF Urine Mucus None seen (NONE SEEN) Ur Culture Indicated? Yes Urine HCG, Qual Negative (NEGATIVE) Imaging Data CT scan - abdomen: Attestation: I have reviewed the pertinent imaging results. Radiologist's impression: ITS Impressions Abdomen/Pelvis CT 02/14/24 13:35 IMPRESSION: CT abdomen and CT pelvis studies demonstrate findings which can be correlated for early and/or mild left pyelonephritis. No obvious obstructive uropathy. Likely follicles in both ovaries. Small amount of free intraperitoneal fluid in the pelvis greater on the left. Mild ill-defined sclerosis of the superior right femoral head likely degenerative in nature. Electronically authenticated by: GINA ROA Date: 02/14/2024 14:07 Discharge Plan Discharge Stand Alone Forms: Portal Instructions Chief Complaint: Back Pain/Injury Clinical Impression: Pyelonephritis Patient Disposition: Home, Self-Care Time of Disposition Decision: 14:46 Condition: Good Mode of Transportation: Private Vehicle Prescriptions / Home Meds: New phenazopyridine [Pyridium] 200 mg tablet 200 mg PO TID PRN (Reason: bladder spasms) Qty: 9 0RF cephalexin 500 mg capsule 500 mg PO Q6H 7 Days Qty: 28 0RF Print Language: St Helenian Instructions: Kidney Infection (ED) Additional Instructions: Follow-up with your doctor in the next three days. If he develops vomiting, high fevers, worsening symptoms return to emergency department immediately for evaluation. Referrals: Physician,Non-Staff, MD [Primary Care Provider] - 1 week Discharge Date/Time: 02/14/24 15:17
== END 2024-02-14 15:17 | disposition home or self-care (01) ==
PROVIDERS: Emergency Provider Student in an Organized Health Care Education/Training Program
DX: N12 Tubulo-interstitial nephritis, not specified as acute or chronic (principal); Z87.442 Personal history of urinary calculi
CPT/HCPCS: 36415; 74176; 80048; 81001; 84703; 85025; 87086; 87150; 87186; 96374; 99285

== ENCOUNTER 2024-02-29 16:04 | Outpatient (OUT) | payer OTHER, SELFPAY ==
[2024-02-29 16:36] LABS: HCG Quantitative 161 mIU/mL
== END 2024-02-29 16:05 | disposition home or self-care (01) ==
LOC: LAB 16:05
PROVIDERS: Visit Provider Obstetrics & Gynecology
DX: N92.6 Irregular menstruation, unspecified (principal)
CPT/HCPCS: 36415; 84702

== ENCOUNTER 2024-03-02 16:23 | Outpatient (OUT) | payer OTHER, SELFPAY ==
[2024-03-02 18:06] LABS: HCG Quantitative 448 mIU/mL
== END 2024-03-02 16:24 | disposition home or self-care (01) ==
LOC: LAB 16:24
PROVIDERS: Visit Provider Obstetrics & Gynecology
DX: N92.6 Irregular menstruation, unspecified (principal)
CPT/HCPCS: 36415; 84702

== ENCOUNTER 2024-04-07 09:07 | Outpatient (OUT) | payer OTHER, SELFPAY ==
--- NOTE | 2024-04-07 09:11 | US_ITS ---
[address] [address] Patient Name: ANU REBOLLEDO MRN: [id number] date: 2000 Sex: F Assigned Patient Location: [facility] Current Patient Location: [facility] Accession/Order Number: [id number] Exam Date: 04/07/2024 09:11 Report Date: 04/07/2024 09:58 At the request of: MAMIE CASILLAS Procedure: US OB transvaginal EXAMINATION: US OB transvaginal HISTORY: MISSED MENSES COMPARISON: No relevant comparison available. FINDINGS: Transvaginal images Mendenhall intrauterine gestation Gestational sac: 3.7 cm, 8 weeks 6 days CRL: 2.16 cm, 9 weeks 3 days Yolk sac: 5.1 mm Heart rate: 175 bpm Cervix: Closed, 4.3 cm The uterus is anteverted, anteflexed. 4.1 cm mass in the fundal myometrium likely representing a fibroid. The right ovary is not visualized Left ovary measures 5.5 x 3.1 x 4.0 cm. Corpus luteal cyst. Clinical age: 9 weeks 4 days Clinical MACIEJ: 11/06/2024 Ultrasound age: 9 weeks 3 days Ultrasound MACIEJ: 11/07/2024 US/US OB transvaginal IMPRESSION: Viable mendenhall intrauterine gestation measuring 9 weeks 3 days Electronically authenticated by: TABATHA VAUGHAN Date: 04/07/2024 09:58
--- OUTSIDE RECORDS SUMMARY | 2024-04-07 09:27 | XMS_ITS ---
Patient Summarization (C-CDA 2.1 CCD) Created on: April 07, 2024 ANU REBOLLEDO : 2000 Sex: Female Author Organization Sample organization Care Team Providers Care Mathematical Scientist Name Role Phone ELIAS THOMAS Unavailable Unavailable ELIAS THOMAS Unavailable Unavailable ELIAS THOMAS Unavailable Unavailable ELIAS THOMAS Unavailable Unavailable ELIAS THOMAS Primary Care Unavailable WILLI GATES Attending Unavailable Elias Thomas Primary Care Provider AMMIE CASILLAS Attending Unavailable Neal Campoverde Unavailable Encounters Encounter Date Encounter Type Care Provider Facility Start: 10-20-2023 End: 10-20-2023 ambulatory MAMIE CASILLAS Not Available Start: 07-29-2023 End: 10-28-2023 ambulatory Neal Campoverde Facility[place] Start: 01-15-2020 End: 01-15-2020 [facility]: 01-14-2020 End: 01-15-2020 Emergency department patient visit Willi Gates Work Phone: [facility] ED Comment on above: Contusion of chest w all, unspecified laterality, subsequent encounter (Primary Dx); Fall, initial encounter Start: 10-07-2018 Patient encounter [facility] Facility[facility] Start: 04-04-2018 Patient encounter procedure [facility] Facility[facility] Medications Current Medications Medication Drug Class(es) Dates [...] for Pain 20 tablet 0 01/14/2020 Active Payers Date Payer Category Payer Unknown [id number] 2000 Unknown [id number] 1999 Unknown [id number] 2000 Unknown [id number] 1999 Unknown [id number] 9 Unknown [employer] M [employer] [address] xxxxxxxxxxxx Effective for all dates [phone] [address] [place] [address] xxxxxxxxxxxx [id number] Plan of Treatment Date Care Activity Detail Author Start: 2049 Shingles Vaccine (1 of 2) Shingles V accine (1 of 2) [place] Start: 06-25-2019 Influenza vaccination Flu vaccine (# 1) [place] Start: 2015 Chlamydia screen Chlamydia screen [place], [place] Start: 2014 HIV screen HIV screen [place], [place] Start: 2010 DTaP/Tdap/Td vaccine (6 - Tdap) DTaP/Tdap/Td vaccine (6 - Tdap) [place] Start: 2010 HPV vaccine (1 - 2-d ose series) HPV vaccine (1 - 2-dose series) [place] Start: 2005 Pneumococcal 0-64 ye ars Vaccine (1 of 1 - PPSV23) Pneumococcal 0-64 years Vaccine (1 of 1 - PPSV23) [place] Start: 2000 Varicella vaccine (1 of 2 - 2-dose childhood series) Varicella vaccine (1 of 2 - 2-dose childhood series) [place] Problems Active Problems Problem Classification Problem Date [...] screening for other viral diseases] Onset: 04-04-2018 Procedures Date Procedure Procedure Detail Performing Clinician Start: 01-15-2020 Radex ribs bilateral 3 views ELIAS THOMAS Start: 01-14-2020 Radex ribs bilateral 3 views Willi Gates Work Phone: Results Test Name Value Interpretation Reference Range [...] Frantz Urias MD 01/14/20 Final result Normal [facility] XR RIBS BILATERAL (3 VIEWS)o n 01-14-2020 INR Coag (Bld) [Relative time] NO ACUTE ACTIVE CARDIOPULMONARY PROCESS. NO ACUTE FRACTURES [place] EXAMINATION: XR RIBS BILATERAL (3 VIEWS) CLINICAL HISTORY: Status post fall on concrete steps this morning. Back pain COMPARISONS: None FINDINGS: 5 views of the chest and ribs are submitted. The cardiac silhouette is of normal size configuration. Pulmonary vascular unremarkable. Right sided trachea. No focal infiltrates. No effusions. No Pneumothoraces. Additional views of left and right ribs show no fracture. [place], [place] Vj, Chpo Incoming Radiant Results From [employer] - 01/14/2020 11:44 PM EDT EXAMINATION: XR [...] ACUTE ACTIVE CARDIOPULMONARY PROCESS. NO ACUTE FRACTURES [place] Culture, Respiratory (Upper) on 10-07-2018 Culture, Respiratory (Upper) BILL#: [id number] : 89 AGE: SEX:FFRANKSOURCE: Throat/Pharynx COLLECTED: 10/07/18 05:25ANTIBIOTICS AT [place].: RECEIVED : 10/10/18 11:49SITE:R E S U L T SRESPIRATORY CULTURE,UPPER FINAL 10/12/18 08:05NORMAL THROAT ANDREW. Normal [facility] Comment on above: Performed By: #### CXRSU ####[facility] [id number] [place] [address] Hepatitis B Surface Abon Hepatitis B Surface Ab 4.4 mIU/mL Normal <10 [facility] Comment on above: Result Comment: INTERPRETIVE CRITERIA:<1 0 mIU/mL....NONREACTIVE>=10 mIU/mL...REACTIVE.Patients receiving more than 5 mg/day of biotin may have interfin test results. A sample should be taken no sooner than eightafter previous dose. Contact [phone] for additional infor Hepatitis B Surface Antigeno n 04-04-2018 Hepatitis B Surface Antigen NONREACTIVE Normal NONREACTIVE [facility] Comment on above: Result Comment: Patients receiving more than 5 mg/day of biotin may have interfin test results. A sample should be taken no sooner than eightafter previous dose. Contact [phone] for additional infor Quantiferon- TB Gold in Tube on 04-04-2018 Quantiferon- Mitogen minus NIL 9.62 IU/mL Normal [facility] Comment on above: Performed By: #### QFTG ####[id number] [place] [address] Quantiferon- NIL 0.11 IU/mL Normal [facility] Comment on above: Result Comment: Performed by CARRIE [address]ouss[address] [place] [address] [email or web address], Ashwin Cramer MD - Lab. Director Performed By: #### Q FTG ####[id number] [place] [address] Quantiferon-TB Gold in Tube Negative Normal Negative [facility] Comment on above: Result Comment: INTERPRETIVE INFORMATION [...] to DetectMycobacterium tuberculosis Infection --- [place], 2009(http://www.cdc.gov/mmwr/preview/mmwrhtml/bq0137u8.htm), forinformation concerning test performance in low-prevalencepopulations and use in occupational screening. Performed By: #### Q FTG ####[id number] [place] [address] Social History Date Type Detail Facility Start: 01-14-2020 Tobacco smoking stat us [facility] Current some day smoker [place] Start: 01-14-2020 Alcohol intake Current drinke r of alcohol (finding) [place] Sex Assigned At Not on file [place] Vital Signs Date Time Vital Sign Value Performing Clinician Facility 01-15-2020 00:11-0400 Body Temperature 98.01 [degF] [place], [place] 01-15-2020 00:11-0400 BP Diastolic 65 mm[Hg] [place], [place] 01-15-2020 00:11-0400 BP Systolic 130 mm[Hg] [place] 01-15-2020 00:11-0400 Pulse (Heart Rate) 65 /min [place] 01-15-2020 00:11-0400 Pulse Oximetry 98 % [place] 01-15-2020 00:11-0400 Respiratory Rate 18 /min [place] 01-14-2020 22:40-0400 BMI (Body Mass Index) 30.79 kg/m2 [place] 01-14-2020 22:40-0400 Body weight 83.92 kg [place] 01-14-2020 22:40-0400 Height 165.1 cm [place] 04-04-2018 18:43-0400 Body mass index (BMI) [Ratio] 0.00 IU/mL ELIAS THOMAS [facility] Comment on above: Performed By: #### QFTG ####[id number] [place] [address] Progress note 05-02-2021 Note Date & Type Note Facility 05-02-2021 Note HNO ID: [id number] Author: Christel Garrison, OD Service: ? Author Type: GIFT SHOP ASSISTANT Type: Progress Notes Filed: 05/02/2021 12:10 PM [...] Garrison, OD May 02, 2021 12:10 PM [facility] Summary Purpose Family History No Family History Records FoundNo Family History Records FoundNo Family History Records FoundNo Family History Records FoundNo Family History Records Found Advance Directives No Advanced Directives Records FoundDocuments on File Type Date Recorded Patient Business Representative Expl anation Advance Directives and Living Will Power of Public Information Director Discharge Instructions * Attachments The following attachments cannot be sent through Care Everywhere. * Chest Contusion ([place]osta [place]ican) * Rib Contusion ([place]) documented in this encounter Assessments Diagnosis Contusion of chest wall, unspecified laterality, subsequent encounter Fall, initial encounter Additional Source Comments INFORMATION SOURCE (unrecogn ized section and content) DATE CREATED AUTHOR 10/15/2018 [facility] DATE CREATED AUTHOR AUTHOR'S ORGANIZ ATION 01/14/2020 [facility] DATE CREATED AUTHOR AUTHOR'S ORGANIZ ATION 11/22/2021 [facility] DATE CREATED AUTHOR AUTHOR'S ORGANIZ ATION 10/22/2023 [facility] DATE CREATED AUTHOR AUTHOR'S ORGANIZ ATION 10/28/2023 [facility] Reason for Visit (unrecogniz ed section and [...] BE BASED ON THE PRIMARY CLINICAL RECORDS. [facility]. provides no warranty or guarantee of the accuracy or completeness of information in this document.
== END 2024-04-07 09:08 | disposition home or self-care (01) ==
LOC: NOMS 09:07
PROVIDERS: Visit Provider Obstetrics & Gynecology
DX: Z34.91 Encounter for supervision of normal pregnancy, unspecified, first trimester (principal); Z3A.09 9 weeks gestation of pregnancy; N92.6 Irregular menstruation, unspecified
CPT/HCPCS: 76817

== ENCOUNTER 2024-04-26 08:11 | Outpatient (OUT) | payer OTHER, SELFPAY ==
--- OUTSIDE RECORDS SUMMARY | 2024-04-26 08:14 | XMS_ITS | CCD ---
Author Organization [facility] Care Team Providers Care Technology Program Manager Name Role Phone ELIAS THOMAS Unavailable Unavailable ELIAS THOMAS Unavailable Unavailable ELIAS THOMAS Unavailable Unavailable ELIAS THOMAS Unavailable Unavailable ELIAS THOMAS Primary Care Unavailable WILLI GATES Attending Unavailable Elias Thomas Primary Care Provider Neal Campoverde Attending Unavailable MAMIE CASILLAS Attending [...] Frantz Urias MD 01/14/20 Final result Normal [facility] XR RIBS BILATERAL (3 VIEWS)o n 01-14-2020 INR Coag (Bld) [Relative time] NO ACUTE ACTIVE CARDIOPULMONARY PROCESS. NO ACUTE FRACTURES [place] EXAMINATION: XR RIBS BILATERAL (3 VIEWS) CLINICAL HISTORY: Status post fall on concrete steps this morning. Back pain COMPARISONS: None FINDINGS: 5 views of the chest and ribs are submitted. The cardiac silhouette is of normal size configuration. Pulmonary vascular unremarkable. Right sided trachea. No focal infiltrates. No effusions. No Pneumothoraces. Additional views of left and right ribs show no fracture. [place], [place] Vj, Chpo Incoming Radiant Results From [employer] - 01/14/2020 11:44 PM EDT EXAMINATION: XR [...] ACUTE ACTIVE CARDIOPULMONARY PROCESS. NO ACUTE FRACTURES [facility], [place] Culture, Respiratory (Upper) on 10-07-2018 Culture, Respiratory (Upper) BILL#: [id number] : [birth year] AGE: SEX:FFRANKSOURCE: Throat/Pharynx COLLECTED: 10/07/18 05:25ANTIBIOTICS AT ARABELLA.: RECEIVED : 10/10/18 11:49SITE:R E S U L T SRESPIRATORY CULTURE,UPPER FINAL 10/12/18 08:05NORMAL THROAT ANDREW. Normal [facility] Comment on above: Performed By: #### CXRSU ####[facility] [address] [place] [address] Hepatitis B Surface Abon Hepatitis B Surface Ab 4.4 mIU/mL Normal <10 [facility] Comment on above: Result Comment: INTERPRETIVE CRITERIA:<1 0 mIU/mL....NONREACTIVE>=10 mIU/mL...REACTIVE.Patients receiving more than 5 mg/day of biotin may have interfin test results. A sample should be taken no sooner than eightafter previous dose. Contact [phone] for additional infor Hepatitis B Surface Antigeno n 04-04-2018 Hepatitis B Surface Antigen NONREACTIVE Normal NONREACTIVE [facility] Comment on above: Result Comment: Patients receiving more than 5 mg/day of biotin may have interfin test results. A sample should be taken no sooner than eightafter previous dose. Contact [phone] for additional infor Quantiferon- TB Gold in Tube on 04-04-2018 Quantiferon- Mitogen minus NIL 9.62 IU/mL Normal [facility] Comment on above: Performed By: #### QFTG ####[id number] [place] [address] Quantiferon- NIL 0.11 IU/mL Normal [facility] Comment on above: Result Comment: Performed by CARRIE [address] [place] [address] [employer]cs[employer], Ashwin Cramer MD - Lab. Director Performed By: #### Q FTG ####[id number] [place] [address] Quantiferon-TB Gold in Tube Negative Normal Negative [facility] Comment on above: Result Comment: INTERPRETIVE [...] to DetectMycobacterium tuberculosis Infection --- [place], 2010(http://www.cdc.gov/mmwr/preview/mmwrhtml/dn1060m1.htm), forinformation concerning test performance in low-prevalencepopulations and use in occupational screening. Performed By: #### Q FTG ####[id number] [place] [address] Vital Signs Date Time Vital Sign Value Performing Clinician Facility 01-15-2020 00:0400 Body Temperature 98.01 [degF] [facility] [place] 01-15-2020 00:0400 BP Diastolic 65 mm[Hg] [facility] , [place] 01-15-2020 00:0400 BP Systolic 130 mm[Hg] [facility] [place] 01-15-2020 00:0400 Pulse (Heart Rate) 65 /min [facility], [place] 01-15-2020 00:0400 Pulse Oximetry 98 % [facility] , [place] 01-15-2020 00:0400 Respiratory Rate 18 /min [facility] 01-14-2020 22:40-0400 BMI (Body Mass Index) 30.79 kg/m2 Willi Gates [facility], [place] 01-14-2020 22:40-0400 Body weight 83.92 kg Willi Gates [facility] , [place] 01-14-2020 22:40-0400 Height 165.1 cm [place] 04-04-2018 18:43-0400 Body mass index (BMI) [Ratio] 0.00 IU/mL [facility] Comment on above: Performed By: #### QFTG ####[id number] [place] [address] Encounters Encounter Date Encounter Type Care Provider Facility Start: 04-07-2024 End: 04-07-2024 ambulatory MAMIE SONJA Not Available Start: 10-20-2023 End: 10-20-2023 ambulatory MAMIE SONJA Not Available Start: 07-29-2023 End: 10-28-2023 ambulatory Neal Campoverde [facility] Start: 01-15-2020 End: 01-15-2020 [facility] Start: 01-14-2020 End: 01-15-2020 Emergency department patient visit Willi Gates Work Phone: [facility] Comment on above: Contusion of chest w all, unspecified laterality, subsequent encounter (Primary Dx); Fall, initial encounter Start: 10-07-2018 Patient encounter procedure ELIAS THOMAS [facility] Start: 04-04-2018 [facility] Procedures Date Procedure Procedure Detail Performing Clinician Start: 01-15-2020 Radex ribs bilateral 3 views ELIAS THOMAS Start: 01-14-2020 Radex ribs bilateral 3 views Willi Gates Work Phone: Plan of Treatment Date Care Activity Detail Author Start: 2049 Shingles Vaccine (1 of 2) Shingles V accine (1 of 2) [place] Start: 06-25-2019 Influenza vaccination Flu vaccine (# 1) [place] Start: 2015 Chlamydia screen Chlamydia screen [place], [place] Start: 2014 HIV screen HIV screen [place], [place] Start: 2010 DTaP/Tdap/Td vaccine (6 - Tdap) DTaP/Tdap/Td vaccine (6 - Tdap) [place], [place] Start: 2010 HPV vaccine (1 - 2-d ose series) HPV vaccine (1 - 2-dose series) [place] Start: 2005 Pneumococcal 0-64 ye ars Vaccine (1 of 1 - PPSV23) Pneumococcal 0-64 years Vaccine (1 of 1 - PPSV23) [place], [place] Start: 2000 Varicella vaccine (1 of 2 - 2-dose childhood series) Varicella vaccine (1 of 2 - 2-dose childhood series) [place], [place] Payers Date Payer Category Payer Unknown [id number] 2000 Unknown [id number] 1999 Unknown [id number] 1999 Unknown [id number] 1999 Unknown [id number] 9 1999 Unknown [id number] 9 Unknown [employer] M [employer] MUTUAL [address] xxxxxxxxxxxx Effective for all dates [phone] [address] [place] [address] xxxxxxxxxxxx [id number] Social History Date Type Detail Facility Start: [facility]-14-[facility] [place] Start: 01-14-2020 Alcohol intake [facility] r [facility] (finding[facility] file [facility] Progress note 05-02-2021 Note Date & Type Note Facility 05-02-2021 Note HNO ID: [id number] Author: Christel Garrison OD Service: ? Author Type: POLICE AIDE Type: Progress Notes Filed: 05/02/2021 12:10 PM [...] all of its relevant components. Christel Garrison, SANDRINE May 02, 2021 12:10 PM [facility] Summary Purpose Family History No Family History Records FoundNo Family History Records FoundNo Family History Records FoundNo Family History Records FoundNo Family History Records Found Advance Directives No Advanced Directives Records FoundDocuments on File Type Date Recorded Patient Clinic Lead Expl anation Advance Directives and Living Will Power of Insulation Technician Discharge Instructions * Attachments The following attachments cannot be sent through Care Everywhere. * Chest Contusion (Angolan) * Rib Contusion (Angolan) documented in this encounter Assessments Diagnosis Contusion of chest wall, unspecified laterality, subsequent encounter Fall, initial encounter Additional Source Comments INFORMATION SOURCE (unrecogn ized section and content) DATE CREATED AUTHOR 10/15/2018 [facility] DATE CREATED AUTHOR AUTHOR'S ORGANIZ ATION 01/14/2020 [facility] DATE CREATED AUTHOR AUTHOR'S ORGANIZ ATION 11/22/2021 [facility] DATE CREATED AUTHOR AUTHOR'S ORGANIZ ATION 10/28/2023 [facility] DATE CREATED AUTHOR AUTHOR'S ORGANIZ ATION 04/08/2024 [facility] Reason for Visit [...] BE BASED ON THE PRIMARY CLINICAL RECORDS. [facility] [employer] [facility]. provides no warranty or guarantee of the accuracy or completeness of information in this document.
[2024-04-26 08:59] LABS: Basophils Percent Auto 0.4 % (0.2-2.0); Eosinophils Absolute Auto 0.1 10^3/uL (0.0-0.7); Eosinophils Percent Auto 0.8 % (0.9-7.0); Hematocrit 33.3 % (36.0-48.0); Hemoglobin 11.5 g/dL (12.0-16.0); Immature Granulocytes Abs Auto 0.02 10^3/uL (0.00-0.03); Immature Granulocytes Pct Auto 0.2 % (0.0-0.5); Lymphocytes Percent Auto 30.8 % (20.5-60.0); Mean Corpuscular HGB Conc 34.5 g/dL (29.9-35.2); Mean Corpuscular Hemoglobin 30.7 pg (26.7-34.0); Mean Corpuscular Volume 88.8 fL (81.0-99.0); Mean Platelet Volume 9.3 fL (9.5-13.5); Monocytes Absolute Auto 0.5 10^3/uL (0.3-0.8); Neutrophils Absolute Auto 6.1 10^3/uL (1.4-6.5); Neutrophils Percent Auto 62.8 % (43.0-75.0); Platelet Count 284 10^3/uL (150-450); Red Blood Count 3.75 10^6/uL (4.20-5.40); White Blood Count 9.7 10^3/uL (4.0-11.0)
[2024-04-26 10:06] LABS: Estimated Average Glucose 94 mg/dL; Glycohemoglobin A1C 4.9 % (4.5-6.2)
[2024-04-27 07:08] LABS: HBsAg Screen Negative (Negative); HIV Ab/p24 Ag Screen Non Reactive (Non Reactive)
[2024-04-27 08:12] LABS: Rubella Antibodies, IgG 5.43 index (Immune >0.99)
[2024-04-27 12:18] LABS: Rapid Plasma Reagin, Quant Non Reactive titer (NonRea<1:1)
[2024-04-27 13:08] LABS: HCV Ab Non Reactive (Non Reactive)
== END 2024-04-26 08:12 | disposition home or self-care (01) ==
LOC: LAB 08:12
PROVIDERS: Visit Provider Obstetrics & Gynecology
DX: Z34.01 Encounter for supervision of normal first pregnancy, first trimester (principal)
CPT/HCPCS: 36415; 83036; 85025; 86592; 86762; 86803; 86850; 86900; 86901; 87086; 87340; 87389

== ENCOUNTER 2024-06-01 20:45 | Outpatient (REF) | payer OTHER, SELFPAY ==
--- OUTSIDE RECORDS SUMMARY | 2024-06-01 20:48 | XMS_ITS | CCD ---
Author Organization [facility] Care Team Providers Care Treatment Supervisor Name Role Phone ELIAS THOMAS Unavailable Unavailable ELIAS THOMAS Unavailable Unavailable ELIAS THOMAS Unavailable Unavailable ELIAS THOMAS Unavailable Unavailable ELIAS THOMAS Primary Care Unavailable WILLI GATES Attending Unavailable Elias Thomas Primary Care Provider [phone] Neal Campoverde Attending Unavailable MAMIE CASILLAS Attending [...] Frantz Urias MD 01/14/20 Final result Normal [facility] XR RIBS BILATERAL (3 VIEWS)o n 01-14-2020 INR Coag (Bld) [Relative time] NO ACUTE ACTIVE CARDIOPULMONARY PROCESS. NO ACUTE FRACTURES [place], [place] EXAMINATION: XR RIBS BILATERAL (3 VIEWS) CLINICAL HISTORY: Status post fall on concrete steps this morning. Back pain COMPARISONS: None FINDINGS: 5 views of the chest and ribs are submitted. The cardiac silhouette is of normal size configuration. Pulmonary vascular unremarkable. Right sided trachea. No focal infiltrates. No effusions. No Pneumothoraces. Additional views of left and right ribs show no fracture. [place], [place] Vj, Chpo Incoming Radiant Results From [employer] - 01/14/2020 11:44 PM EDT EXAMINATION: XR [...] ACUTE ACTIVE CARDIOPULMONARY PROCESS. NO ACUTE FRACTURES [facility] [place] Culture, Respiratory (Upper) on 10-07-2018 Culture, Respiratory (Upper) BILL#: [id number] : 89 AGE: SEX:FFRANKSOURCE: Throat/Pharynx COLLECTED: 10/07/18 05:25ANTIBIOTICS AT ARABELLA.: RECEIVED : 10/10/18 11:49SITE:R E S U L T SRESPIRATORY CULTURE,UPPER FINAL 10/12/18 08:05NORMAL THROAT ANDREW. Normal [facility] Comment on above: Performed By: #### CXRSU ####[facility] [id number] [place] [address] Hepatitis B Surface Abon Hepatitis B Surface Ab 4.4 mIU/mL Normal <10 [facility] Healthcare Comment on above: Result Comment: INTERPRETIVE CRITERIA:<1 0 mIU/mL....NONREACTIVE>=10 mIU/mL...REACTIVE.Patients receiving more than 5 mg/day of biotin may have interfin test results. A sample should be taken no sooner than eightafter previous dose. Contact [phone] for additional infor Hepatitis B Surface Antigeno n 04-04-2018 Hepatitis B Surface Antigen NONREACTIVE Normal NONREACTIVE [facility] Comment on above: Result Comment: Patients receiving more than 5 mg/day of biotin may have interfin test results. A sample should be taken no sooner than eightafter previous dose. Contact [phone] for additional infor Quantiferon- TB Gold in Tube on 04-04-2018 Quantiferon- Mitogen minus NIL 9.62 IU/mL Normal [facility] Healthcare Comment on above: Performed By: #### QFTG ####[id number] [place] [address] Quantiferon- NIL 0.11 IU/mL Normal [facility] thcare Comment on above: Result Comment: Performed by CARRIE broussard,[address] [place] [address] wjj.[employer], Ashwin Cramer MD - Lab. Director Performed By: #### Q FTG ####[id number] [place] [address] Quantiferon-TB Gold in Tube Negative Normal Negative [facility] Healthcare Comment on above: Result Comment: INTERPRETIVE [...] to DetectMycobacterium tuberculosis Infection --- [place], 2010(http://www.cdc.gov/mmwr/preview/mmwrhtml/jv5744q8.htm), forinformation concerning test performance in low-prevalencepopulations and use in occupational screening. Performed By: #### Q FTG ####[id number] [place] [address] Vital Signs Date Time Vital Sign Value Performing Clinician Facility 01-15-2020 00:0400 Body Temperature 98.01 [facility]degF[facility] [place] 01-15-2020 00:0400 BP Diastolic 65 mm[Hg] [facility] , [place] 01-15-2020 00:0400 BP Systolic 130 mm[Hg] [place] [facility] [place] 01-15-2020 00:0400 Pulse (Heart Rate) 65 /min [facility], [place] 01-15-2020 00:0400 Pulse Oximetry 98 % [facility] , [place] 01-15-2020 00:0400 Respiratory Rate 18 /min [facility] 01-14-2020 22:40-0400 BMI (Body Mass Index) 30.79 kg/m2 Willi Gates [facility], [place] 01-14-2020 22:40-0400 Body weight 83.92 kg Willi Gates [facility] , [place] 01-14-2020 22:40-0400 Height 165.1 cm [place] 04-04-2018 18:43-0400 Body mass index (BMI) [Ratio] 0.00 IU/mL [facility] Comment on above: Performed By: #### QFTG ####[id number] [place] [address] Encounters Encounter Date Encounter Type Care Provider Facility Start: 04-07-2024 End: 04-07-2024 ambulatory MAMIE SONJA Not Available Start: 10-20-2023 End: 10-20-2023 ambulatory MAMIE SONJA Not Available Start: 07-29-2023 End: 10-28-2023 ambulatory Neal Campoverde Facility:[facility] Start: 01-15-2020 End: 01-15-2020 [facility] Start: 01-14-2020 End: 01-15-2020 Emergency department patient visit Willi Gates Work Phone: [facility] Comment on above: Contusion of chest w all, unspecified laterality, subsequent encounter (Primary Dx); Fall, initial encounter Start: 10-07-2018 Patient encounter procedure ELIAS THOMAS Facility[facility] Start: 04-04-2018 [facility] Procedures Date Procedure Procedure Detail Performing Clinician Start: 01-15-2020 Radex ribs bilateral 3 views ELIAS THOMAS Start: 01-14-2020 Radex ribs bilateral 3 views Willi Gates Work Phone: Plan of Treatment Date Care Activity Detail Author Start: 2049 Shingles Vaccine (1 of 2) Shingles V accine (1 of 2) [place], [place] Start: 06-25-2019 Influenza vaccination Flu vaccine (# 1) [place] Start: 2015 Chlamydia screen Chlamydia screen [place], [place] Start: 2014 HIV screen HIV screen [place], [place] Start: 2010 DTaP/Tdap/Td vaccine (6 - Tdap) DTaP/Tdap/Td vaccine (6 - Tdap) [place], [place] Start: 2010 HPV vaccine (1 - 2-d ose series) HPV vaccine (1 - 2-dose series) [place], [place] Start: 2005 Pneumococcal 0-64 ye ars Vaccine (1 of 1 - PPSV23) Pneumococcal 0-64 years Vaccine (1 of 1 - PPSV23) [place], [place] Start: 2000 Varicella vaccine (1 of 2 - 2-dose childhood series) Varicella vaccine (1 of 2 - 2-dose childhood series) [place], [place] Payers Date Payer Category Payer Unknown [id number] 1999 Unknown [id number] 1999 Unknown [id number] 1999 Unknown [id number] 1999 Unknown [id number] 9 1999 Unknown [id number] 9 Unknown [employer] M [employer] [address] xxxxxxxxxxxx Effective for all dates [phone] [address] [place] [address] xxxxxxxxxxxx [id number] Social History Date Type Detail Facility Start: [facility]-14-2020 [facility] [place] Start: 01-14-2020 Alcohol intake Current drinke r [facility] (finding) [facility] Sex Assigned At Not on file [facility] Progress note 05-02-2021 Note Date & Type Note Facility 05-02-2021 Note HNO ID: [id number] Author: Christel Garrison OD Service: ? Author Type: SERVICES ADVISOR Type: Progress Notes Filed: 05/02/2021 12:10 PM [...] Garrison, SANDRINE May 02, 2021 12:10 PM [facility] Summary Purpose Family History No Family History Records FoundNo Family History Records FoundNo Family History Records FoundNo Family History Records FoundNo Family History Records Found Advance Directives No Advanced Directives Records FoundDocuments on File Type Date Recorded Patient Larry Car Operator Expl anation Advance Directives and Living Will Power of Oral And Maxillofacial Surgery Discharge Instructions * Attachments The following attachments cannot be sent through Care Everywhere. * Chest Contusion (Norwegian) * Rib Contusion (Norwegian) documented in this encounter Assessments Diagnosis Contusion of chest wall, unspecified laterality, subsequent encounter Fall, initial encounter Additional Source Comments INFORMATION SOURCE (unrecogn ized section and content) DATE CREATED AUTHOR 10/15/2018 [facility] DATE CREATED AUTHOR AUTHOR'S ORGANIZ ATION 01/14/2020 [facility] DATE CREATED AUTHOR AUTHOR'S ORGANIZ ATION 11/22/2021 [facility] DATE CREATED AUTHOR AUTHOR'S ORGANIZ ATION 10/28/2023 [facility] DATE CREATED AUTHOR AUTHOR'S ORGANIZ ATION 04/08/2024 [facility] dical Specialists EPIC Reason for Visit (unrecogniz [...] BE BASED ON THE PRIMARY CLINICAL RECORDS. [facility] [employer] [facility] provides no warranty or guarantee of the accuracy or completeness of information in this document.
[2024-06-07 12:10] LABS: Age Gdln ACOG Testing Note (.); IGP, rfx Aptima HPV ASCU Note (.)
== END 2024-06-01 20:46 | disposition home or self-care (01) ==
LOC: LAB 20:45
PROVIDERS: Visit Provider Obstetrics & Gynecology
DX: Z01.419 Encounter for gynecological examination (general) (routine) without abnormal findings (principal)
CPT/HCPCS: 88175

== ENCOUNTER 2024-06-22 17:36 | Outpatient (OUT) | payer OTHER, SELFPAY ==
--- NOTE | 2024-06-22 17:38 | US_ITS ---
[address] [address] Patient Name: ANU REBOLLEDO MRN: [id number] date: 2000 Sex: F Assigned Patient Location: US Current Patient Location: Accession/Order Number: [id number] Exam Date: 06/22/2024 17:45 Report Date: 06/27/2024 04:12 At the request of: MAMIE CASILLAS Procedure: US OB cervical length EXAMINATION: US OB anatomy, US OB cervical length HISTORY: SCREENING, , FOR ANATOMIC SURVEY Z36.89 COMPARISON: No relevant comparison available. TECHNIQUE: Transabdominal sonographic examination was performed for obstetrical and evaluation. FINDINGS: Number: 1 Heart Rate: 149.17 bpm H.B. /min Amniotic Fluid Volume: Subjectively normal. Placental Location: POSTERIOR with lower margin 4.3 cm from os. Cervix Length: 4.02 cm ; closed. ANATOMY: Normal Structures -cerebellum, choroid plexus, cisterna magna, lateral cerebral ventricles, orbits, midline falx, hard palate, four-chamber heart, RVOT, LVOT, stomach, kidneys, bladder, umbilical cord insertion into abdomen, three-vessel cord, cervical spine, thoracic spine, lumbar spine, sacral spine, right upper extremity, left upper extremity, right lower extremity, left lower extremity. SUBOPTIMALLY SEEN: None ABNORMALITIES: None BIOMETRY: BPD: 4.63 cm; 20 weeks 0 days; 31.10 % HC: 17.61 cm; 20 weeks 1 day; 27.20 % AC: 15.97 cm; 21 weeks 1 day; 65.80 % FL: 3.24 cm; 20 weeks 1 day; 29.90 % EFW:361.42 g; 52.20 % FL/AC: 20.26 FL/BPD: 69.92 HC/AC: 1.10 GESTATIONAL AGE: Age by EDC: 20 weeks 3 days Age by current US: 20 weeks 3 days MACIEJ by current US: 2024-11-06 MACIEJ by EDC: 2024-11-06 US/US OB cervical length IMPRESSION: 1. Single live intrauterine with growth detailed above. Electronically authenticated by: KINGSTON RAI Date: 06/27/2024 04:12
--- NOTE | 2024-06-22 17:38 | US_ITS ---
[address] [address] Patient Name: ANU REBOLLEDO MRN: [id number] date: 2000 Sex: F Assigned Patient Location: US Current Patient Location: Accession/Order Number: [id number] Exam Date: 06/22/2024 17:45 Report Date: 06/27/2024 04:12 At the request of: MAMIE CASILLAS Procedure: US OB anatomy EXAMINATION: US OB anatomy, US OB cervical length HISTORY: SCREENING, , FOR ANATOMIC SURVEY Z36.89 COMPARISON: No relevant comparison available. TECHNIQUE: Transabdominal sonographic examination was performed for obstetrical and evaluation. FINDINGS: Number: 1 Heart Rate: 149.17 bpm H.B. /min Amniotic Fluid Volume: Subjectively normal. Placental Location: POSTERIOR with lower margin 4.3 cm from os. Cervix Length: 4.02 cm ; closed. ANATOMY: Normal Structures -cerebellum, choroid plexus, cisterna magna, lateral cerebral ventricles, orbits, midline falx, hard palate, four-chamber heart, RVOT, LVOT, stomach, kidneys, bladder, umbilical cord insertion into abdomen, three-vessel cord, cervical spine, thoracic spine, lumbar spine, sacral spine, right upper extremity, left upper extremity, right lower extremity, left lower extremity. SUBOPTIMALLY SEEN: None ABNORMALITIES: None BIOMETRY: BPD: 4.63 cm; 20 weeks 0 days; 31.10 % HC: 17.61 cm; 20 weeks 1 day; 27.20 % AC: 15.97 cm; 21 weeks 1 day; 65.80 % FL: 3.24 cm; 20 weeks 1 day; 29.90 % EFW:361.42 g; 52.20 % FL/AC: 20.26 FL/BPD: 69.92 HC/AC: 1.10 GESTATIONAL AGE: Age by EDC: 20 weeks 3 days Age by current US: 20 weeks 3 days MACIEJ by current US: 2024-11-06 MACIEJ by EDC: 2024-11-06 US/US OB anatomy IMPRESSION: 1. Single live intrauterine with growth detailed above. Electronically authenticated by: KINGSTON RAI Date: 06/27/2024 04:12
--- OUTSIDE RECORDS SUMMARY | 2024-06-22 17:41 | XMS_ITS | CCD ---
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 Name Role Phone ELIAS THOMAS Unavailable Unavailable ELIAS THOMAS Unavailable Unavailable ELIAS THOMAS Unavailable Unavailable ELIAS THOMAS Unavailable Unavailable ELIAS THOMAS Primary Care Unavailable WILLI GATES Attending Unavailable Elias Thomas Primary Care Provider [phone] Neal Campoverde Attending Unavailable MAMIE CASILLAS Attending Unavailable MAMIE CASILLAS Attending Unavailable MAMIE CASILLAS Attending Unavailable Medications [...] Frantz Urias MD 01/14/20 Final result Normal [facility] XR RIBS BILATERAL (3 VIEWS)o n 01-14-2020 INR Coag (Bld) [Relative time] NO ACUTE ACTIVE CARDIOPULMONARY PROCESS. NO ACUTE FRACTURES [place], [place] EXAMINATION: XR RIBS BILATERAL (3 VIEWS) CLINICAL HISTORY: Status post fall on concrete steps this morning. Back pain COMPARISONS: None FINDINGS: 5 views of the chest and ribs are submitted. The cardiac silhouette is of normal size configuration. Pulmonary vascular unremarkable. Right sided trachea. No focal infiltrates. No effusions. No Pneumothoraces. Additional views of left and right ribs show no fracture. [place], [place] Vj, Chpo Incoming Radiant Results From [employer] - 01/14/2020 11:44 PM EDT EXAMINATION: XR [...] CARDIOPULMONARY PROCESS. NO ACUTE FRACTURES [facility] [place] [place] Culture, Respiratory (Upper) on 10-07-2018 Culture, Respiratory (Upper) BILL#: [id number] : 89 AGE: SEX:FFRANKSOURCE: Throat/Pharynx COLLECTED: 10/07/18 05:25ANTIBIOTICS AT ARABELLA.: RECEIVED : 10/10/18 11:49SITE:R E S U L T SRESPIRATORY CULTURE,UPPER FINAL 10/12/18 08:05NORMAL THROAT ANDREW. Normal [facility] Comment on above: Performed By: #### CXRSU ####[facility] [id number] [place] [address] Hepatitis B Surface Abon Hepatitis B Surface Ab 4.4 mIU/mL Normal <10 [facility] Comment on above: Result Comment: INTERPRETIVE CRITERIA:<1 0 mIU/mL....NONREACTIVE>=10 mIU/mL...REACTIVE.Patients receiving more than 5 mg/day of biotin may have interfin test results. A sample should be taken no sooner than eightafter previous dose. Contact [phone] for additional infor Hepatitis B Surface Antigeno n 04-04-2018 Hepatitis B Surface Antigen NONREACTIVE Normal NONREACTIVE [facility] Comment on above: Result Comment: Patients receiving more than 5 mg/day of biotin may have interfin test results. A sample should be taken no sooner than eightafter previous dose. Contact [phone] for additional infor Quantiferon- TB Gold in Tube on 04-04-2018 Quantiferon- Mitogen minus NIL 9.62 IU/mL Normal [facility] Healthcare Comment on above: Performed By: #### QFTG ####[id number] [place] [address] Quantiferon- NIL 0.11 IU/mL Normal [facility] thcare Comment on above: Result Comment: Performed by CARRIE broussard[address] [place] [address] hnf[employer], Ashwin Cramer MD - Lab. Director Performed By: #### Q FTG ####[id number] [place] [address] Quantiferon-TB Gold in Tube Negative Normal Negative [facility] Comment on above: Result Comment: INTERPRETIVE [...] to DetectMycobacterium tuberculosis Infection --- [place], 2010(http://www.cdc.gov/mmwr/preview/mmwrhtml/rt1498t6.htm), forinformation concerning test performance in low-prevalencepopulations and use in occupational screening. Performed By: #### Q FTG ####[id number] [place] [address] Vital Signs Date Time Vital Sign Value Performing Clinician Facility 01-15-2020 00:110400 Body Temperature 98.01 [degF] [facility], [place] 01-15-2020 00:11-0400 BP Diastolic 65 mm[Hg] [facility] , [place] 01-15-2020 00:0400 BP Systolic 130 mm[Hg] [facility] , [place] 01-15-2020 00:11-0400 Pulse (Heart Rate) 65 /min [facility], [place] 01-15-2020 00:110400 Pulse Oximetry 98 % [place], [place] 01-15-2020 00:11-0400 Respiratory Rate 18 /min Willi Gates [facility], [place] 01-14-2020 22:40-0400 BMI (Body Mass Index) 30.79 kg/m2 Willi Gates [facility] [place] [place] 01-14-2020 22:40-0400 Body weight 83.92 [facility] [place] 01-14-2020 22:40-0400 Height 165.1 cm [facility] [place] 04-04-2018 18:43-0400 Body mass index (BMI) [Ratio] 0.00 IU/mL ELIAS [facility] Comment on above: Performed By: #### QFTG ####[id number] [place] [address] Encounters Encounter Date Encounter Type Care Provider Facility Start: 06-01-2024 End: 06-01-2024 ambulatory MAMIE SONJA Not Available Start: 05-02-2024 End: 05-02-2024 ambulatory MAMIE SONJA Not Available Start: 04-07-2024 End: 04-07-2024 ambulatory MAMIE SONJA Not Available Start: 10-20-2023 End: 10-20-2023 ambulatory MAMIE SONJA Not Available Start: 07-29-2023 End: 10-28-2023 ambulatory Neal Campoverde [facility] Start: 01-15-2020 End: 01-15-2020 Emergency department patient visit ELIAS THOMAS [facility] Start: 01-14-2020 End: 01-15-2020 Emergency department patient visit Willi Gates Work Phone: [facility] Comment on above: Contusion of chest w all, unspecified laterality, subsequent encounter (Primary Dx); Fall, initial encounter Start: 10-07-2018 Patient encounter procedure ELIAS THOMAS Facility:[facility] [employer] Start: 04-04-2018 Patient encounter procedure ELIAS THOMAS Facility:[facility] Procedures Date Procedure Procedure Detail Performing Clinician Start: 01-15-2020 Radex ribs bilateral 3 views ELIAS THOMAS Start: 01-14-2020 Radex ribs bilateral 3 views Willi Gates Work Phone: Plan of Treatment Date Care Activity Detail Author Start: 2049 Shingles Vaccine (1 of 2) Shingles V accine (1 of 2) [place], [place] Start: 06-25-2019 Influenza vaccination Flu vaccine (# 1) [place], [place] Start: 2015 Chlamydia screen Chlamydia screen [place], [place] Start: 2014 HIV screen HIV screen [place], [place] Start: 2010 DTaP/Tdap/Td vaccine (6 - Tdap) DTaP/Tdap/Td vaccine (6 - Tdap) [place], [place] Start: 2010 HPV vaccine (1 - 2-d ose series) HPV vaccine (1 - 2-dose series) [place], [place] Start: 2005 Pneumococcal 0-64 ye ars Vaccine (1 of 1 - PPSV23) Pneumococcal 0-64 years Vaccine (1 of 1 - PPSV23) [place], [place] Start: 2000 Varicella vaccine (1 of 2 - 2-dose childhood series) Varicella vaccine (1 of 2 - 2-dose childhood series) [place], [place] Payers Date Payer Category Payer Unknown [id number] 1999 Unknown [id number] 1999 Unknown [id number] 1999 Unknown [id number] 1999 Unknown [id number] 9 1999 Unknown [id number] 9 1999 Unknown [id number] 9 1999 Unknown [id number] 9 Unknown [employer] M [employer] M[employer]UAL [address] xxxxxxxxxxxx Effective for all dates [phone] [address] [place] [address] xxxxxxxxxxxx [id number] Social History Date Type Detail Facility Start: 01-14-2020 Tobacco smoking stat [facility] Current some day smoker [place], [place] Start: 01-14-2020 Alcohol intake Current drinke r of alcohol (finding) [place], [place] Sex Assigned At Not on file [place], [place] Progress note 05-02-2021 Note Date & Type Note Facility 05-02-2021 Note HNO ID: [id number] Author: Christel Garrison OD Service: ? Author Type: MANIPULATIVE THERAPY SPECIALIST Type: Progress Notes Filed: 05/02/2021 12:10 PM Note Text: ASSESSMENT/PLAN: 1. 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 * Chest Contusion (Hebrew) * Rib Contusion (Hebrew) documented in this encounter Assessments Diagnosis Contusion of chest wall, unspecified laterality, subsequent encounter Fall, initial encounter Additional Source Comments INFORMATION SOURCE (unrecogn ized section and content) DATE CREATED AUTHOR 10/15/2018 [facility] DATE CREATED AUTHOR AUTHOR'S ORGANIZ ATION 01/14/2020 Mariya [facility] ital DATE CREATED AUTHOR AUTHOR'S ORGANIZ ATION 11/22/2021 [facility] DATE CREATED AUTHOR AUTHOR'S ORGANIZ ATION 10/28/2023 Adin Bryan [facility] DATE CREATED AUTHOR AUTHOR'S ORGANIZ ATION 06/03/2024 [facility] dical Specialists EPIC Reason for Visit [...] BE BASED ON THE PRIMARY CLINICAL RECORDS. [employer] provides no warranty or guarantee of the accuracy or completeness of information in this document.
== END 2024-06-22 17:37 | disposition home or self-care (01) ==
LOC: US 17:37
PROVIDERS: Visit Provider Obstetrics & Gynecology
DX: Z36.89 Encounter for other specified antenatal screening (principal); Z3A.20 20 weeks gestation of pregnancy
CPT/HCPCS: 76805; 76817

== ENCOUNTER 2024-07-21 11:24 | Outpatient (OUT) | payer OTHER, SELFPAY ==
--- OUTSIDE RECORDS SUMMARY | 2024-07-21 11:29 | XMS_ITS | CCD ---
Author Organization [facility] Care Team Providers Care Inspector Rag Sorting Name Role Phone ELIAS THOMAS Unavailable Unavailable ELIAS THOMAS Unavailable Unavailable ELIAS THOMAS Unavailable Unavailable ELIAS THOMAS Unavailable Unavailable ELIAS THOMAS Primary Care Unavailable WILLI GATES Attending Unavailable Elias Thomas Primary Care Provider Neal Campoverde Attending Unavailable MAMIE CASILLAS Attending Unavailable MAMIE CASILLAS Attending Unavailable MAMIE CASILLAS Attending Unavailable NILTON ROSADO Attending Unavailable Medications Current Medications Medication Drug [...] Frantz Urias MD 01/14/20 Final result Normal [facility] XR RIBS BILATERAL (3 VIEWS)o n 01-14-2020 INR Coag (Bld) [Relative time] NO ACUTE ACTIVE CARDIOPULMONARY PROCESS. NO ACUTE FRACTURES [place], [place] EXAMINATION: XR RIBS BILATERAL (3 VIEWS) CLINICAL HISTORY: Status post fall on concrete steps this morning. Back pain COMPARISONS: None FINDINGS: 5 views of the chest and ribs are submitted. The cardiac silhouette is of normal size configuration. Pulmonary vascular unremarkable. Right sided trachea. No focal infiltrates. No effusions. No Pneumothoraces. Additional views of left and right ribs show no fracture. [place], [place] Vj, Chpo Incoming Radiant Results From [facility] - 01/14/2020 11:44 PM EDT EXAMINATION: XR [...] ACUTE FRACTURES [facility], [place] Culture, Respiratory (Upper) on 10-07-2018 Culture, Respiratory (Upper) BILL#: [id number] : 89 AGE: SEX:FFRANKSOURCE: Throat/Pharynx COLLECTED: 10/07/18 05:25ANTIBIOTICS AT ARABELLA.: RECEIVED : 10/10/18 11:49SITE:R E S U L T SRESPIRATORY CULTURE,UPPER FINAL 10/12/18 08:05NORMAL THROAT ANDREW. Normal [facility] Comment on above: Performed By: #### CXRSU ####[facility] [id number] [place] [address] Hepatitis B Surface Abon Hepatitis B Surface Ab 4.4 mIU/mL Normal <10 [facility] Comment on above: Result Comment: INTERPRETIVE CRITERIA:<1 0 mIU/mL....NONREACTIVE>=10 mIU/mL...REACTIVE.Patients receiving more than 5 mg/day of biotin may have interfin test results. A sample should be taken no sooner than eightafter previous dose. Contact [phone] for additional infor Hepatitis B Surface Antigeno n 04-04-2018 Hepatitis B Surface Antigen NONREACTIVE Normal NONREACTIVE [facility] Comment on above: Result Comment: Patients receiving more than 5 mg/day of biotin may have interfin test results. A sample should be taken no sooner than eightafter previous dose. Contact [phone] for additional infor Quantiferon- TB Gold in Tube on 04-04-2018 Quantiferon- Mitogen minus NIL 9.62 IU/mL Normal [facility] Comment on above: Performed By: #### QFTG ####[id number] [place] [address] Quantiferon- NIL 0.11 IU/mL Normal [facility]care Comment on above: Result Comment: Performed by CARRIE broussard[address] [place] [address] [email or web address], Ashwin Cramer MD - Lab. Director Performed By: #### Q FTG ####[id number] [place] [address] Quantiferon-TB Gold in Tube Negative Normal Negative [facility] Comment on above: Result Comment: [...] to DetectMycobacterium tuberculosis Infection --- [place], 2010(http://www.cdc.gov/mmwr/preview/mmwrhtml/wv6303o9.htm), forinformation concerning test performance in low-prevalencepopulations and use in occupational screening. Performed By: #### Q FTG ####[id number] [place] [address] Vital Signs Date Time Vital Sign Value Performing Clinician Facility 01-15-2020 00:0400 Body Temperature 98.01 [degF] [facility] [place] 01-15-2020 00:0400 BP Diastolic 65 mm[Hg] [facility] [place] 01-15-2020 00:0400 BP Systolic 130 mm[Hg] [facility] [place] 01-15-2020 00:0400 Pulse (Heart Rate) 65 /min [facility] [place] 01-15-2020 00:0400 Pulse Oximetry 98 % [facility] , [place] 01-15-2020 00:11-0400 Respiratory Rate 18 /min [facility], [place] 01-14-2020 22:40-0400 BMI (Body Mass Index) 30.79 kg/m2 Willi Gates [facility] 01-14-2020 22:40-0400 Body weight 83.92 kg Willi Gates [facility] [place] 01-14-2020 22:40-0400 Height 165.1 cm Willi Gates [facility] [place] 04-04-2018 18:43-0400 Body mass index (BMI) [Ratio] 0.00 IU/mL ELIAS [facility] Comment on above: Performed By: #### QFTG ####[id number] [place] [address] Encounters Encounter Date Encounter Type Care Provider Facility Start: 07-03-2024 End: 07-03-2024 ambulatory NILTON ROSADO Not Available Start: 06-01-2024 End: 06-01-2024 ambulatory MAMIE SONJA Not Available Start: 05-02-2024 End: 05-02-2024 ambulatory MAMIE SONJA Not Available Start: 04-07-2024 End: 04-07-2024 ambulatory MAMIE SONJA Not Available Start: 10-20-2023 End: 10-20-2023 ambulatory MAMIE SONJA Not Available Start: 07-29-2023 End: 10-28-2023 ambulatory Neal Campoverde Facility:[facility] Start: 01-15-2020 End: 01-15-2020 Emergency department patient visit ELIAS THOMAS [facility] Start: 01-14-2020 End: 01-15-2020 Emergency department patient visit Willi Gates Work Phone: [facility] ED Comment on above: Contusion of chest w all, unspecified laterality, subsequent encounter (Primary Dx); Fall, initial encounter Start: 10-07-2018 Patient encounter procedure ELIAS THOMAS Facility:[facility] Start: 04-04-2018 Patient encounter procedure ELIAS THOMAS Facility:[facility] Procedures Date Procedure Procedure Detail Performing Clinician Start: 01-15-2020 Radex ribs bilateral 3 views ELIAS THOMAS Start: 01-14-2020 Radex ribs bilateral 3 views Willi Gates Work Phone: Plan of Treatment Date Care Activity Detail Author Start: 2049 Shingles Vaccine (1 of 2) Shingles V accine (1 of 2) [place] Start: 06-25-2019 Influenza vaccination Flu vaccine (# 1) [place] Start: 2015 Chlamydia screen Chlamydia screen [place], [place] Start: 2014 HIV screen HIV screen [place], [place] Start: 2010 DTaP/Tdap/Td vaccine (6 - Tdap) DTaP/Tdap/Td vaccine (6 - Tdap) [place] Start: 2010 HPV vaccine (1 - 2-d ose series) HPV vaccine (1 - 2-dose series) [place] Start: 2005 Pneumococcal 0-64 ye ars Vaccine (1 of 1 - PPSV23) Pneumococcal 0-64 years Vaccine (1 of 1 - PPSV23) [place] Start: 2000 Varicella vaccine (1 of 2 - 2-dose childhood series) Varicella vaccine (1 of 2 - 2-dose childhood series) [place], [place] Payers Date Payer Category Payer Unknown [id number] 1999 Unknown [id number] 1999 Unknown [id number] 1999 Unknown [id number] 1999 Unknown [id number] 9 1999 Unknown [id number] 9 1999 Unknown [id number] 9 1999 Unknown [id number] 9 1999 Unknown [id number] 9 Unknown [employer] [address] xxxxxxxxxxxx Effective for all dates [phone] [address] [place] [address] xxxxxxxxxxxx [id number] Social History Date Type Detail Facility [facility]: [facility] [place] Start: 01-14-2020 Alcohol intake Current drinke r of alcohol (finding) [place] Sex Assigned At Not on file [place] Progress note 05-02-2021 Note Date & Type Note Facility 05-02-2021 Note HNO ID: [id number] Author: Christel Garrison OD Service: ? Author Type: [employer] Type: Progress Notes Filed: 05/02/2021 12:10 PM [...] Garrison OD May 02, 2021 12:10 PM [facility] Summary Purpose Family History No Family History Records FoundNo Family History Records FoundNo Family History Records FoundNo Family History Records FoundNo Family History Records Found Advance Directives No Advanced Directives Records FoundDocuments on File Type Date Recorded Patient Photographic Aide Expl anation Advance Directives and Living Will Power of Certified Medical Assistant Discharge Instructions * Attachments The following attachments cannot be sent through Care Everywhere. * Chest Contusion (Bolivian) * Rib Contusion (Bolivian) documented in this encounter Assessments Diagnosis Contusion of chest wall, unspecified laterality, subsequent encounter Fall, initial encounter Additional Source Comments INFORMATION SOURCE (unrecogn ized section and content) DATE CREATED AUTHOR 10/15/2018 [facility] DATE CREATED AUTHOR AUTHOR'S ORGANIZ ATION 01/14/2020 [facility] DATE CREATED AUTHOR AUTHOR'S ORGANIZ ATION 11/22/2021 [facility] DATE CREATED AUTHOR AUTHOR'S ORGANIZ ATION [facility] DATE CREATED AUTHOR AUTHOR'S ORGANIZ ATION 07/04/2024 [facility] EPIC Reason for [...] BE BASED ON THE PRIMARY CLINICAL RECORDS. [employer] provides no warranty or guarantee of the accuracy or completeness of information in this document.
[2024-07-21 12:45] LABS: Glucose 1 Hour 98 mg/dL (<130)
[2024-07-21 12:47] LABS: Basophils Percent Auto 0.2 % (0.2-2.0); Eosinophils Absolute Auto 0.1 10^3/uL (0.0-0.7); Eosinophils Percent Auto 0.9 % (0.9-7.0); Hematocrit 29.7 % (36.0-48.0); Hemoglobin 9.8 g/dL (12.0-16.0); Immature Granulocytes Abs Auto 0.04 10^3/uL (0.00-0.03); Immature Granulocytes Pct Auto 0.4 % (0.0-0.5); Lymphocytes Absolute Auto 1.6 10^3/uL (1.2-3.8); Lymphocytes Percent Auto 16.7 % (20.5-60.0); Mean Corpuscular Hemoglobin 31.4 pg (26.7-34.0); Mean Corpuscular Volume 95.2 fL (81.0-99.0); Mean Platelet Volume 9.1 fL (9.5-13.5); Monocytes Absolute Auto 0.4 10^3/uL (0.3-0.8); Monocytes Percent Auto 4.3 % (1.7-12.0); Neutrophils Absolute Auto 7.3 10^3/uL (1.4-6.5); Neutrophils Percent Auto 77.5 % (43.0-75.0); Platelet Count 262 10^3/uL (150-450); Red Blood Count 3.12 10^6/uL (4.20-5.40); Red Cell Distribution Width 13.8 % (11.0-15.0); White Blood Count 9.4 10^3/uL (4.0-11.0)
== END 2024-07-21 11:25 | disposition home or self-care (01) ==
PROVIDERS: Visit Provider Physician Assistant
DX: Z13.1 Encounter for screening for diabetes mellitus (principal)
CPT/HCPCS: 36415; 82950; 85025

== ENCOUNTER 2024-08-30 08:15 | Outpatient (OUT) | payer OTHER, SELFPAY ==
--- OUTSIDE RECORDS SUMMARY | 2024-08-30 08:29 | XMS_ITS | CCD ---
Author Organization [facility] Care Team Providers Care Cytology Teacher Name Role Phone ELIAS WREN Unavailable Unavailable ELIAS WREN Unavailable Unavailable ELIAS WREN Unavailable Unavailable ELIAS WREN Unavailable Unavailable ELIAS WREN F Primary Care Unavailable WILLI CARVER Attending Unavailable Elias Wren Primary Care Provider Neal Campoverde Attending Unavailable Unavailable Primary Care Provider UnavailMAMIE Kay Attending Unavailable MAMIE REED Attending Unavailable MAMIE REED Attending Unavailable RANDEE ROSADO Attending Unavailable RANDEE ROSADO Attending Unavailable MAMIE REED Attending Unavailable Medications Current Medications Medication Drug [...] for Pain 20 tablet 0 01/14/2020 Active polysaccharide iron complex 391 mg oral capsule (6 sources) Start: 07-24-2024 End: 08-23-2024 take 1 capsule by mouth once daily iron polysaccharides (ProFe) 391.3 (180 Fe) MG capsule Indications: Low hemoglobin Take 1 capsule (391.3 mg) by mouth Daily 30 capsule 11 07/24/2024 08/23/2024 Active MV-Min-Fe Fum-FA-DHA (/Folic Acid+DHA) 27-0.8-200 MG capsule (6 sources) Start: 11-06-2022 MV-Mi n-Fe Fum-FA-DHA (/Folic Acid+DHA) 27-0.8-200 MG capsule 11/06/2022 Active Problems Active Problems Problem Classification Problem Date Documented Da te Episodic/Chronic Deficiency and other anemia (2 sources) Anemia; Translations: [Anemia, unspecified] 08-17-2024 Episodic External cause codes: Fall (1 source) Fall; Translations: [Fall, initial encounter] Other complications of (2 sources) size does not accord with dates; Translations: [Uterine size-date discrepancy, third trimester] 08-17-2024 Episodic Other and delivery including normal (6 sources) Second trimester ; Translations: [Encounter for supervision of normal , unspecified, second trimester] Onset: 08-17-2024 08-02-2024 Episodic Other upper respiratory infections (1 source) Acute pharyngitis, unspecified; Translations: [Acute pharyngitis, unspecified] Onset: 10-07-2018 Episodic Residual codes; unclassified (2 sources) Gestation period, 26 weeks; Translations: [26 weeks gestation of ] 08-02-2024 Episodic Residual codes; unclassified (4 sources) Gestation period, 28 weeks; Translations: [28 weeks gestation of ] Onset: 08-17-2024 08-17-2024 Episodic Superficial injury; contusion (1 source) Contusion [...] Results Test Name Value Interpretation Reference Range Facility Urinalysis macro (dipstick) panel (U)on 08-17-2024 Bilirubin, UA Negative Negative - 4(70) +++ mg/dL [facility] Blood, UA Negative Negative - 50 Shaun/mcL [facility] Clarity, UA Clear [facility] Color, UA Yellow [facility] Glucose, UA Negative Negative - 2000(110) ++++ mg/dL [facility] Interpretation and review of laboratory results Abnormal [facility] Ketones, UA Positive Negative - 160(16) ++++ mg/dL [facility] Comment on above: large Leukocytes, UA Negative Negative - 500+++ Kathe/mcL [facility] Nitrite, UA Negative Negative - Positive [facility] pH, UA 6.5 5 - 9 [facility] Protein, UA Negative Negative - 1999(20) ++++ mg/dL [facility] Spec Grav, UA 1.01 1 - 1.03 [facility] Urobilinogen, UA 0.2 0.2 - 12 mg/dL [facility] Urinalysis macro (dipstick) panel (U)on 08-02-2024 Bilirubin, UA Negative Negative - 4(70) +++ mg/dL [facility] Blood, UA Negative Negative - 50 Shaun/mcL [facility] Clarity, UA Clear [facility] Color, UA Yellow [facility] Glucose, UA Negative Negative - 2000(110) ++++ mg/dL [facility] Interpretation and review of laboratory results Abnormal [facility] Ketones, UA Positive Negative - 160(16) ++++ mg/dL [facility] Comment on above: trace Leukocytes, UA Negative Negative - 500+++ Kathe/mcL [facility] Nitrite, UA Negative Negative - Positive [facility] pH, UA 6.5 5 - 9 [facility] Protein, UA Negative Negative - 1999(20) ++++ mg/dL [facility] Spec Grav, UA 1.020 1 - 1.03 [facility] Urobilinogen, UA 0.2 0.2 - 12 mg/dL [facility] XR RIBS BILATERAL (3 VIEWS)o n 01-15-2020 [...] Frantz Urias MD 01/14/20 Final result Normal [facility] XR RIBS BILATERAL (3 VIEWS)o n 01-14-2020 INR Coag (Bld) [Relative time] NO ACUTE ACTIVE CARDIOPULMONARY PROCESS. NO ACUTE FRACTURES [facility]: XR RIBS BILATERAL (3 VIEWS) CLINICAL HISTORY: Status post fall on concrete steps this morning. Back pain COMPARISONS: None FINDINGS: 5 views of the chest and ribs are submitted. The cardiac silhouette is of normal size configuration. Pulmonary vascular unremarkable. Right sided trachea. No focal infiltrates. No effusions. No Pneumothoraces. Additional views of left and right ribs show no fracture. [facility], Chpo Incoming Radiant Results From [facility] - 01/14/2020 11:44 PM EDT EXAMINATION: XR [...] ACUTE ACTIVE CARDIOPULMONARY PROCESS. NO ACUTE [facility]RACTURES [facility] Culture, Respiratory (Upper) on 10-07-2018 Culture, Respiratory (Upper) BILL#: [id number] : 89 AGE: SEX:FFRANKSOURCE: Throat/Pharynx COLLECTED: 10/07/18 05:25ANTIBIOTICS AT [facility]ELLA.: RECEIVED : 10/10/18 11:49SITE:R E S U L T SRESPIRATORY CULTURE,UPPER FINAL 10/12/18 08:05NORMAL THROAT ANDREW. Normal [facility] Comment on above: Performed By: #### C XRSU ####[facility] [id number] [place] [address] Hepatitis B Surface Abon Hepatitis B Surface Ab 4.4 mIU/mL Normal <10 [facility] Comment on above: Result Comment: INTE RPRETIVE CRITERIA:<10 mIU/mL....NONREACTIVE>=10 mIU/mL...REACTIVE.Patients receiving more than 5 mg/day of biotin may have interfin test results. A sample should be taken no sooner than eightafter previous dose. Contact [phone] for additional infor Hepatitis B Surface Antigeno n 04-04-2018 Hepatitis B Surface Antigen NONREACTIVE Normal NONREACTIVE [facility] Comment on above: Result Comment: Rose Mary ents receiving more than 5 mg/day of biotin may have interfin test results. A sample should be taken no sooner than eightafter previous dose. Contact [phone] for additional infor Quantiferon- TB Gold in Tube on 04-04-2018 Quantiferon- Mitogen minus NIL 9.62 IU/mL Normal [facility] Comment on above: Performed By: #### Q FTG ####[id number] [place] [address] Quantiferon- NIL 0.11 IU/mL Normal [facility] Comment on above: Result Comment: Perf ormed by [employer],[address] [place], [place] [id number] [employer], Ashwin Cramer MD - Lab. Director Performed By: #### Q FTG ####[id number] [place] [address] Quantiferon-TB Gold in Tube Negative Normal Negative [facility] Comment on above: Result Comment: INTE RPRETIVE INFORMATION: QuantiFERON-TB Gold In-TubeInterferon gamma release is measured [...] to DetectMycobacterium tuberculosis Infection --- [place], 2010(http://www.cdc.gov/mmwr/preview/mmwrhtml/bf9017v1.htm), forinformation concerning test performance in low-prevalencepopulations and use in occupational screening. Performed By: #### Q FTG ####[id number] [place] [address] Vital Signs Date Time Vital Sign Value Performing Clinician Facility 08-17-2024 09:05-0400 Body weight 86.24 kg Avuxi Work Phone: [facility] 08-17-2024 09:05-0400 Diastolic blood pressure 70 mm[Hg] [employer] Work Phone: [facility] 08-17-2024 09:05-0400 Systolic blood pressure 110 mm[Hg] [employer] Work Phone: [facility] 08-02-2024 14:39-0400 Body weight 86.18 kg Randee CARCAMO Work Phone: [facility] 08-02-2024 14:39-0400 Diastolic blood pressure 76 mm[Hg] Randee CARCAMO Work Phone: [facility] 08-02-2024 14:39-0400 Systolic blood pressure 118 mm[Hg] Randee CARCAMO Work Phone: [facility] 01-15-2020 00:11-0400 Body Temperature 98.01 [degF] Willi [employer], [place] 01-15-2020 00:11-0400 BP Diastolic 65 mm[Hg] Willi [employer] [facility] , [place] 01-15-2020 00:11-0400 BP Systolic 130 mm[Hg] Willi [employer] [facility] , [place] 01-15-2020 00:11-0400 Pulse (Heart Rate) 65 /min [place] [employer] [facility], [place] 01-15-2020 00:11-0400 Pulse Oximetry 98 % Willi Carver [facility] , [place] 01-15-2020 00:11-0400 Respiratory Rate 18 /min Willi Meraz [facility], [place] 01-14-2020 22:40-0400 BMI (Body Mass Index) 30.79 kg/m2 Willi Carver [facility], [place] 01-14-2020 22:40-0400 Body weight 83.92 kg Willi Carver [facility] , [place] 01-14-2020 22:40-0400 Height 165.1 cm Willi Carver [facility] , SARAH 04-04-2018 18:43-0400 Body mass index (BMI) [Ratio] 0.00 IU/mL ELIAS WREN [facility] Comment on above: Performed By: #### QFTG ####[id number] [place] [address] Encounters Encounter Date Encounter Type Care Provider Facility Start: 08-17-2024 End: 08-17-2024 Bamboo flowsheet Mamie Brianna DO Work Phone: [facility] Start: 08-17-2024 End: 08-17-2024 Bamboo flowsheet Mamie Brianna DO Work Phone: [facility] Start: 08-17-2024 End: 08-17-2024 ambulatory MAMIE BRIANNA Not Available Start: 08-17-2024 End: 08-17-2024 flow sheet Mamie Brianna DO Work Phone: [facility] Comment on above: 28 weeks gestation o f ; Third trimester ; Size of fetus inconsistent with dates in third trimester; Anemia, unspecified type Start: 08-02-2024 End: 08-02-2024 ambulatory RANDEE ROSADO Not Available Start: 08-02-2024 End: 08-02-2024 flow sheet Randee CARCAMO Work Phone: [facility] Comment on above: Second trimester pre gnancy; 26 weeks gestation of Start: 08-02-2024 End: 08-02-2024 Bamboo flowsheet Randee CARCAMO Work Phone: [facility] Start: 08-02-2024 End: 08-02-2024 Bamboo flowsheet Randee CARCAMO Work Phone: [facility] Start: 07-03-2024 End: 07-03-2024 ambulatory RANDEE ROSADO Not Available Start: 06-01-2024 End: 06-01-2024 ambulatory MAMIE BRIANNA Not Available Start: 05-02-2024 End: 05-02-2024 ambulatory MAMIE BRIANNA Not Available Start: 04-07-2024 End: 04-07-2024 ambulatory MAMIE BRIANNA Not Available Start: 10-20-2023 End: 10-20-2023 ambulatory MAMIE BRIANNA Not Available Start: 07-29-2023 End: 10-28-2023 ambulatory Neal Campoverde Facility:[facility] Start: 01-15-2020 End: 01-15-2020 [facility] Start: 01-14-2020 End: 01-15-2020 Emergency department patient visit Willi Cavrer Work Phone: [facility] ED Comment on above: Contusion of chest w all, unspecified laterality, subsequent encounter (Primary Dx); Fall, initial encounter Start: 10-07-2018 Patient encounter procedure ELIAS WREN Facility:[facility] Start: 04-04-2018 Patient encounter procedure [facility]AS [facility] Facility:[facility] Procedures Date Procedure Procedure Detail Performing Clinician Start: 08-17-2024 Urnls dip stick/tabl et rgnt non-auto w/o micrscp Mamie Brianna DO Work Phone: Start: 08-02-2024 Urnls dip stick/tabl et rgnt non-auto w/o micrscp Randee CARCAMO Work Phone: Start: 01-15-2020 Radex ribs bilateral 3 views ELIAS WREN Start: 01-14-2020 Radex ribs bilateral 3 views Willi Carver Work Phone: Plan of Treatment Date Care Activity Detail Author Start: 2049 Shingles Vaccine (1 of 2) Shingles Vaccine (1 of 2) [place], [place] Start: 08-31-2024 End: 08-31-2024 Patient encounter procedure 08/31/2024 8:30 AM EST Routine [facility] [address] [place] [id number] Mamie Reed, DO [address] [place], [place] [address] [address] [facility] Start: 08-31-2024 End: 08-31-2024 Professional / ancillary services management 08/31/2024 8:00 AM EST Ancillary Procedure [facility] [address] [place] [id number] [facility] Start: 08-17-2024 End: 08-17-2025 US for US OB SCAN FOR GROWTH Imaging Routine Third trimester Size of fetus inconsistent with dates in third trimester Expected: 08/17/2024 (Approximate), Expires: 08/17/2025 [facility] Work Phone: Comment on above: Expected: 08/17/2024 (Approximate), Expires: 08/17/2025 Start: 08-17-2024 End: 08-17-2024 Patient encounter procedure 08/17/2024 8:50 AM EDT Routine [facility] [address] [place] [place] [id number] Mamie Reed, [address] [place] [address] [facility] Start: 06-25-2024 Influenza vaccination Influenza Vacc ine (#1) [facility] Start: 06-25-2019 Influenza vaccination Flu vaccine (# 1) [place], [place] Start: 2015 Chlamydia screen Chlamydia screen [place], [place] Start: 2014 HIV screen HIV screen [place], [place] Start: 2010 DTaP/Tdap/Td vaccine (6 - Tdap) DTaP/Tdap/Td vaccine (6 - Tdap) [place], [place] Start: 2010 HPV vaccine (1 - 2-d ose series) HPV vaccine (1 - 2-dose series) [place], [place] Start: 2005 Pneumococcal 0-64 ye ars Vaccine (1 of 1 - PPSV23) Pneumococcal 0-64 years Vaccine (1 of 1 - PPSV23) [place], [place] Start: 2000 Varicella vaccine (1 of 2 - 2-dose childhood series) Varicella vaccine (1 of 2 - 2-dose childhood series) [place], [place] CBC W Auto Different ial panel - Blood CBC and differential Lab Routine Anemia, unspecified type Ordered: 08/17/2024 [facility] Comment on above: Ordered: 08/17/2024 Immunizations Immunization Date Immunization Notes Care Provider Kayla bragg 08-09-2023 influenza virus vacc ine, unspecified formulation Randee CARCAMO Work Phone: [facility] Payers Date Payer Category Payer Private Health Insurance [employer] [id number] 2020 Unknown [employer] [id number] 2020-Present [address] [place] [address] [id number] 2020 Unknown [id number] 1999 Unknown [id number] 1999 Unknown [id number] 1999 Unknown [id number] 1999 Unknown [id number] .[id number] 1999 Unknown [id number] .1259 1999 Unknown [id number] [id number] .1259 1999 Unknown [id number] .1259 1999 Unknown [id number] .1259 1999 Unknown [id number] .1259 1999 Unknown [id number] .[id number] Unknown [employer] [address] xxxxxxxxxxxx Effective for all dates [phone] [address] [place] [address] xxxxxxxxxxxx [id number] Social History Date Type Detail Facility Start: 01-14-2020 Tobacco smoking stat [facility] Current some day smoker [place], [place] Start: 01-14-2020 Alcohol intake Current drinke r of alcohol (finding) [place], [place] Start: 1999 Sex Assigned At Not on file [place], [place] Start: 04-07-2024 Tobacco smoking stat [facility] Never smoked tobacco [facility] Start: 04-07-2024 Tobacco use and exposure Smokeless tobacco non-user [facility] Start: 08-02-2024 End: 08-17-2024 Alcoholic beverage intake Ex-drinker (finding) [facility] Start: 04-07-2024 History of Social function [facility] Start: 04-07-2024 Tobacco use panel [facility] Start: 02-14-2024 [facility] History of Present illness Narrative 08-17-2024 Jimena Robbins LPN - 08/17/2024 9:00 AM EDT Note Date & Type Note Facility 08-17-2024 History of Presen t illness Narrative Reason for Appointment: Patient ID: Jennifer Smith is a 24 y.o. female who presents for Routine Visit Patient presents today for Return OB appointment. MEDICATIONS Current Outpatient Medications Medication Instructions iron polysaccharides (PROFE) 391.3 mg, Oral, Daily MV-Min-Fe Fum-FA-DHA (/Folic Acid+DHA) 27-0.8-200 MG capsule ALLERGIES No Known Allergies PROBLEMS Active Ambulatory Problems Diagnosis Date Noted No Active Ambulatory Problems Resolved Ambulatory Problems Diagnosis Date Noted No Resolved Ambulatory Problems Past Medical History: Diagnosis Date History of miscarriage HISTORY PAST MEDICAL HISTORY SOCIAL HISTORY Past Medical History: Diagnosis Date History of miscarriage Social History Tobacco Use Smoking status: Never Smokeless tobacco: Never Substance Use Topics Alcohol use: Not Currently Drug use: Never FAMILY HISTORY Family History Problem Relation Name Age of Onset Asthma Father Delmar Hyperlipidemia Father Delmar Breast cancer Maternal Grandmother [place] Cancer Maternal Grandmother [place] Diabetes Maternal Grandmother July Migraines Maternal Grandmother July Cancer Paternal Grandfather Lit Hyperlipidemia Paternal Grandmother Venu Hypertension Paternal Grandmother Venu SURGICAL HISTORY Past Surgical History: Procedure Laterality Date WISDOM TOOTH EXTRACTION REVIEW OF SYSTEMS Review of Systems: Review of Systems All other systems reviewed and are negative. OBJECTIVE Objective: Physical Exam Constitutional: Appearance: Normal appearance. She is well-developed. Cardiovascular: Rate and Rhythm: Normal rate and regular rhythm. Pulmonary: Effort: Pulmonary effort is normal. Breath sounds: Normal breath sounds. Abdominal: General: Bowel sounds are normal. There is no distension. Palpations: Abdomen is soft. Tenderness: There is no abdominal tenderness. There is no guarding or rebound. Musculoskeletal: General: No swelling. Normal range of motion. Right lower leg: No edema. Left lower leg: No edema. Neurological: Mental Status: She is alert and oriented to person, place, and time. Skin: General: Skin is warm and dry. Psychiatric: Mood and Affect: Mood normal. Behavior: Behavior normal. Vitals and nursing note reviewed. Exam conducted with a blower operator present. Vitals: There is no height or weight on file to calculate BMI. BP: 110/70 Patient's last menstrual period was 01/31/2024. ASSESSMENT & PLAN ICD-10-CM 1. 28 weeks gestation of Z3A.28 POCT urinalysis dipstick manually resulted 2. Third trimester Z34.93 POCT urinalysis dipstick manually resulted Patient presents today for a routine obstetrics appointment. Patient is currently 28w3d with a Estimated Date of Delivery: 11/06/24. Patient doing well with no complaints at this time. Patient to return to clinic in 2 weeks. Patient given order for growth scan to be done prior to next appointment. Patient given order to have repeat CBC. Documented by Jimena Robbins LPN on behalf of: Mamie Reed DO documented in this encounter [facility] History of Present illness Narrative 08-02-2024 DONA Velazco - 08/02/2024 2:30 PM EDT Note Date & Type Note Facility 08-02-2024 History of Presen t illness Narrative Reason for Appointment: Patient ID: Jennifer Smith is a 24 y.o. female who presents for No chief complaint on file. Patient presents today for Return OB appointment. MEDICATIONS Current Outpatient Medications Medication Instructions iron polysaccharides (PROFE) 391.3 mg, Oral, Daily MV-Min-Fe Fum-FA-DHA (/Folic Acid+DHA) 27-0.8-200 MG capsule ALLERGIES No Known Allergies PROBLEMS Active Ambulatory Problems Diagnosis Date Noted No Active Ambulatory Problems Resolved Ambulatory Problems Diagnosis Date Noted No Resolved Ambulatory Problems Past Medical History: Diagnosis Date History of miscarriage HISTORY PAST MEDICAL HISTORY SOCIAL HISTORY Past Medical History: Diagnosis Date History of miscarriage Social History Tobacco Use Smoking status: Never Smokeless tobacco: Never Substance Use Topics Alcohol use: Not Currently Drug use: Never FAMILY HISTORY Family History Problem Relation Name Age of Onset Asthma Father Delmar Hyperlipidemia Father Delmar Breast cancer Maternal Grandmother [place] Cancer Maternal Grandmother July Diabetes Maternal Grandmother [place] Migraines Maternal Grandmother July Cancer Paternal Grandfather Lit Hyperlipidemia Paternal Grandmother Venu Hypertension Paternal Grandmother Venu SURGICAL HISTORY Past Surgical History: Procedure Laterality Date WISDOM TOOTH EXTRACTION REVIEW OF SYSTEMS Review of Systems: Review of Systems OBJECTIVE Objective: OBGyn Exam Vitals: There is no height or weight on file to calculate BMI. BP: Patient's last menstrual period was 01/31/2024. ASSESSMENT & PLAN ICD-10-CM 1. Second trimester Z34.92 POCT urinalysis dipstick manually resulted 2. 26 weeks gestation of Z3A.26 POCT urinalysis dipstick manually resulted Return OB: Patient presents today for a routine obstetrics appointment. Patient is currently 26w2d . Patient states she is doing well but has complaints of being tired due to current . Patient has verbalizes frequent movement. Orders Placed This Encounter Procedures POCT urinalysis dipstick manually resulted Follow Up: Patient is to return to office in 4 weeks for routine OB appointment. Documented by Mag Márquez on behalf of: DONA Velazco documented in this encounter [facility] Progress note 05-02-2021 Note Date & Type Note Facility 05-02-2021 Note HNO ID: [id number] Author: Christel Garrison OD Service: ? Author Type: ADMISSIONS RN Type: Progress Notes Filed: 05/02/2021 12:10 PM [...] Garrison OD May 02, 2021 12:10 PM [facility] Evaluation note Note Date & Type Note Facility Evaluation note Diagnosis Second trimester state, incidental 26 weeks gestation of documented in this encounter [facility] Evaluation note Note Date & Type Note Facility Evaluation note Diagnosis 28 weeks gestation of Third trimester state, incidental Size of fetus inconsistent with dates in third trimester Anemia, unspecified type documented in this encounter [facility] Summary Purpose Family History No Family History Records FoundNo Family History Records FoundNo Family History Records FoundNo Family History Records FoundNo Family History Records Found Advance Directives No Advanced Directives Records FoundDocuments on File Type Date 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 * Chest Contusion (Sinhala) * Rib Contusion (Sinhala) documented in this encounter Assessments Diagnosis Contusion of chest wall, unspecified laterality, subsequent encounter Fall, initial encounter Additional Source Comments INFORMATION SOURCE (unrecogn ized section and content) DATE CREATED AUTHOR 10/15/2018 [facility] DATE CREATED AUTHOR AUTHOR'S ORGANIZ ATION 01/14/2020 [facility] DATE CREATED AUTHOR AUTHOR'S ORGANIZ ATION 11/22/2021 [facility] DATE CREATED AUTHOR AUTHOR'S ORGANIZ ATION 10/28/2023 [facility] DATE CREATED AUTHOR AUTHOR'S ORGANIZ ATION 08/18/2024 [facility] EPIC Reason for Visit (unrecogniz ed section and content) Reason Comments Fall Fell on concrete yamileth ps. Worried about cracking a rib Reason Comments Routine Visit FOR RECORDS PERTAINING TO PATIENTS WHO ARE [...] BE BASED ON THE PRIMARY CLINICAL RECORDS. [employer] provides no warranty or guarantee of the accuracy or completeness of information in this document.
[2024-08-30 08:49] LABS: Basophils Percent Auto 0.2 % (0.2-2.0); Eosinophils Absolute Auto 0.1 10^3/uL (0.0-0.7); Eosinophils Percent Auto 0.6 % (0.9-7.0); Hematocrit 29.6 % (36.0-48.0); Hemoglobin 9.9 g/dL (12.0-16.0); Immature Granulocytes Abs Auto 0.04 10^3/uL (0.00-0.03); Immature Granulocytes Pct Auto 0.5 % (0.0-0.5); Lymphocytes Absolute Auto 1.8 10^3/uL (1.2-3.8); Lymphocytes Percent Auto 21.8 % (20.5-60.0); Mean Corpuscular HGB Conc 33.4 g/dL (29.9-35.2); Mean Corpuscular Hemoglobin 31.7 pg (26.7-34.0); Mean Corpuscular Volume 94.9 fL (81.0-99.0); Mean Platelet Volume 9.6 fL (9.5-13.5); Monocytes Absolute Auto 0.5 10^3/uL (0.3-0.8); Neutrophils Absolute Auto 5.8 10^3/uL (1.4-6.5); Neutrophils Percent Auto 70.9 % (43.0-75.0); Platelet Count 221 10^3/uL (150-450); Red Blood Count 3.12 10^6/uL (4.20-5.40); Red Cell Distribution Width 13.8 % (11.0-15.0); White Blood Count 8.1 10^3/uL (4.0-11.0)
== END 2024-08-30 08:16 | disposition home or self-care (01) ==
LOC: LAB 08:16
PROVIDERS: Visit Provider Obstetrics & Gynecology
DX: D64.9 Anemia, unspecified (principal)
CPT/HCPCS: 36415; 85025

== ENCOUNTER 2024-08-31 08:04 | Outpatient (OUT) | payer OTHER, SELFPAY ==
--- NOTE | 2024-08-31 08:06 | US_ITS ---
[address] [address] Patient Name: ANU REBOLLEDO MRN: [id number] date: 2000 Sex: F Assigned Patient Location: [facility] Current Patient Location: Accession/Order Number: [id number] Exam Date: 08/31/2024 08:07 Report Date: 09/01/2024 05:31 At the request of: MAMIE CASILLAS Procedure: US OB growth EXAMINATION: US OB growth HISTORY: LARGE FOR GESTATIONAL AGE COMPARISON: Ultrasound OB anatomy 06/22/2024 FINDINGS: Heart Rate: 140 bpm Amniotic Fluid Volume: 12.6 cm; normal range. Number: 1 Position: TRANSVERSE BIOMETRY: BPD: 7.90 cm; 31 weeks 5 days; 77.10 % HC: 28.77 cm; 31 weeks 4 days; 48.40 % AC: 27.31 cm; 31 weeks 3 days; 74 % FL: 5.88 cm; 30 weeks 5 days; 42.70 % EFW: 1768.43 g; 65.60 % FL/AC: 21.53 FL/BPD: 74.43 HC/AC: 1.05 GESTATIONAL AGE: Age by EDC: 30 weeks 3 days MACIEJ by EDC: 2024-11-06 Age by US: 31 weeks 3 days MACIEJ by US: 2024-10-30 US/US OB growth IMPRESSION: 1. Single live intrauterine with growth detailed above. Electronically authenticated by: KINGSTON RAI Date: 09/01/2024 05:31
--- OUTSIDE RECORDS SUMMARY | 2024-08-31 08:08 | XMS_ITS | CCD ---
Author Organization [facility] Care Team Providers Care Manufacturing Scheduler Name Role Phone ELIAS WREN Unavailable Unavailable [...] UA Negative Negative - 4(70) +++ mg/dL [facility] Blood, UA Negative Negative - 50 Shaun/mcL [facility] Clarity, UA Clear [facility] Color, UA Yellow [facility] Glucose, UA Negative Negative - 2000(110) ++++ mg/dL [facility] Interpretation and review of laboratory results Abnormal [facility] Ketones, UA Positive Negative - 160(16) ++++ mg/dL [facility] Comment on above: large Leukocytes, UA Negative Negative - 500+++ Kathe/mcL [facility] Nitrite, UA Negative Negative - Positive [facility] pH, UA 6.5 5 - 9 [facility] Protein, UA Negative Negative - 1999(20) ++++ mg/dL [facility] Spec Grav, UA 1.01 1 - 1.03 [facility] Urobilinogen, UA 0.2 0.2 - 12 mg/dL [facility] Urinalysis macro (dipstick) panel (U)on 08-02-2024 Bilirubin, UA Negative Negative - 4(70) +++ mg/dL [facility] Blood, UA Negative Negative - 50 Shaun/mcL [facility] Clarity, UA Clear [facility] Color, UA Yellow [facility] Glucose, UA Negative Negative - 2000(110) ++++ mg/dL [facility] Interpretation and review of laboratory results Abnormal [facility] Ketones, UA Positive Negative - 160(16) ++++ mg/dL [facility] Comment on above: trace Leukocytes, UA Negative Negative - 500+++ Kathe/mcL [facility] Nitrite, UA Negative Negative - Positive [facility] pH, UA 6.5 5 - 9 [facility] Protein, UA Negative Negative - 1999(20) ++++ mg/dL [facility] Spec Grav, UA 1.020 1 - 1.03 [facility] Urobilinogen, UA 0.2 0.2 - 12 mg/dL [facility] XR RIBS BILATERAL (3 VIEWS)o n [...] Frantz Urias MD 01/14/20 Final result Normal [facility] XR RIBS BILATERAL (3 VIEWS)o n 01-14-2020 INR Coag (Bld) [Relative time] NO ACUTE ACTIVE CARDIOPULMONARY PROCESS. NO ACUTE FRACTURES [facility]: XR RIBS BILATERAL (3 VIEWS) CLINICAL HISTORY: Status post fall on concrete steps this morning. Back pain COMPARISONS: None FINDINGS: 5 views of the chest and ribs are submitted. The cardiac silhouette is of normal size configuration. Pulmonary vascular unremarkable. Right sided trachea. No focal infiltrates. No effusions. No Pneumothoraces. Additional views of left and right ribs show no fracture. [facility] Vj, Chpo Incoming Radiant Results From [employer] - 01/14/2020 11:44 PM EDT EXAMINATION: XR [...] ACUTE ACTIVE CARDIOPULMONARY PROCESS. NO ACUTE FRACTURES [facility] Culture, Respiratory (Upper) on 10-07-2018 Culture, Respiratory (Upper) BILL#: [id number] : 89 AGE: SEX:FFRANKSOURCE: Throat/Pharynx COLLECTED: 10/07/18 05:25ANTIBIOTICS AT [facility]ABELLA.: RECEIVED : 10/10/18 11:49SITE:R E S U L T SRESPIRATORY CULTURE,UPPER FINAL 10/12/18 08:05NORMAL THROAT ANDREW. Normal [facility] Comment on above: Performed By: #### C XRSU ####[facility] [address] [place] [address] Hepatitis B Surface Abon Hepatitis B Surface Ab 4.4 mIU/mL Normal <10 [facility] Comment on above: Result Comment: INTE RPRETIVE CRITERIA:<10 mIU/mL....NONREACTIVE>=10 mIU/mL...REACTIVE.Patients receiving more than 5 mg/day of biotin may have interfin test results. A sample should be taken no sooner than eightafter previous dose. Contact [phone] for additional infor Hepatitis B Surface Antigeno n 04-04-2018 Hepatitis B Surface Antigen NONREACTIVE Normal NONREACTIVE [facility] Comment on above: Result Comment: Rose Mary ents receiving more than 5 mg/day of biotin may have interfin test results. A sample should be taken no sooner than eightafter previous dose. Contact [phone] for additional infor Quantiferon- TB Gold in Tube on 04-04-2018 Quantiferon- Mitogen minus NIL 9.62 IU/mL Normal [facility] Comment on above: Performed By: #### Q FTG ####[id number] [place] [address] Quantiferon- NIL 0.11 IU/mL Normal [facility] Comment on above: Result Comment: Perf ormed by [employer],[address] [place], [place] [id number] wdr.[facility], Ashwin Cramer MD - Lab. Director Performed By: #### Q FTG ####[id number] [place] [address] Quantiferon-TB Gold in Tube Negative Normal Negative [facility] Comment on above: Result Comment: INTE RPRETIVE [...] to DetectMycobacterium tuberculosis Infection --- [place], 2010(http://www.cdc.gov/mmwr/preview/mmwrhtml/uk2151q5.htm), forinformation concerning test performance in low-prevalencepopulations and use in occupational screening. Performed By: #### Q FTG ####[id number] [place] [address] Vital Signs Date Time Vital Sign Value Performing Clinician Facility 08-17-2024 09:05-0400 Body weight 86.24 kg [employer] Work Phone: [facility] 08-17-2024 09:05-0400 Diastolic blood pressure 70 mm[Hg] [employer] Work Phone: [facility] 08-17-2024 09:05-0400 Systolic blood pressure 110 mm[Hg] [employer] Work Phone: [facility] 08-02-2024 14:39-0400 Body weight 86.18 kg Randee CARCAMO Work Phone: [facility] 08-02-2024 14:39-0400 Diastolic blood pressure 76 mm[Hg] Randee CARCAMO Work Phone: [facility] 08-02-2024 14:39-0400 Systolic blood pressure 118 mm[Hg] Randee CARCAMO Work Phone: [facility] 01-15-2020 00:11-0400 Body Temperature 98.01 [degF] Willi [employer] [facility] [place] 01-15-2020 00:11-0400 BP Diastolic 65 mm[Hg] Willi [employer] [facility] , [place] 01-15-2020 00:11-0400 BP Systolic 130 mm[Hg] Willi [employer] [facility] [place] 01-15-2020 00:11-0400 Pulse (Heart Rate) 65 /min [place] [employer] [facility] 01-15-2020 00:11-0400 Pulse Oximetry 98 % Willi Carver [facility] , [place] 01-15-2020 00:11-0400 Respiratory Rate 18 /min Willi Meraz [facility], [place] 01-14-2020 22:40-0400 BMI (Body Mass Index) 30.79 kg/m2 Willi Carver [facility] 01-14-2020 22:40-0400 Body weight 83.92 kg Willi Carver [facility] , [place] 01-14-2020 22:40-0400 Height 165.1 cm Willi Carver [facility] , [place] 04-04-2018 18:43-0400 Body mass index (BMI) [Ratio] 0.00 IU/mL ELIAS WREN [facility] Comment on above: Performed By: #### QFTG ####[id number] [place] [address] Encounters Encounter Date Encounter Type Care Provider [...] Start: 07-29-2023 End: 10-28-2023 ambulatory Neal Campoverde Facility:[facility] Start: 01-15-2020 End: 01-15-2020 [facility] Start: 01-14-2020 End: 01-15-2020 Emergency department patient visit Willi Carver Work Phone: [facility] ED Comment on above: Contusion of chest w all, unspecified laterality, subsequent encounter (Primary Dx); Fall, initial encounter Start: 10-07-2018 Patient encounter procedure ELIAS WREN Facility:[facility] Start: 04-04-2018 Patient encounter procedure [facility] Facility:[facility] Procedures Date Procedure Procedure Detail Performing [...] of 2) Shingles Vaccine (1 of 2) [place], [place] Start: 08-31-2024 End: 08-31-2024 Patient encounter procedure 08/31/2024 8:30 AM EST Routine [facility] [address] [place] [id number] Mamie Reed, DO [address] [place], [place] [address] [address] [facility] Start: 08-31-2024 End: 08-31-2024 Professional / ancillary services management 08/31/2024 8:00 AM EST Ancillary Procedure [facility] [address] [place] [id number] [facility] Start: 08-17-2024 End: 08-17-2025 US for US OB SCAN FOR GROWTH Imaging Routine Third trimester Size of fetus inconsistent with dates in third trimester Expected: 08/17/2024 (Approximate), Expires: 08/17/2025 [facility] Work Phone: Comment on above: Expected: 08/17/2024 (Approximate), Expires: 08/17/2025 Start: 08-17-2024 End: 08-17-2024 Patient encounter procedure 08/17/2024 8:50 AM EDT Routine [facility] [address] [place] [id number] Mamie Reed, [address] [place] [address] [facility] Start: 06-25-2024 Influenza vaccination Influenza Vacc ine (#1) [facility] Start: 06-25-2019 Influenza vaccination Flu vaccine (# 1) [place], [place] Start: 2015 Chlamydia screen Chlamydia screen [place], [place] Start: 2014 HIV screen HIV screen [place], [place] Start: 2010 DTaP/Tdap/Td vaccine (6 - Tdap) DTaP/Tdap/Td vaccine (6 - Tdap) [place], [place] Start: 2010 HPV vaccine (1 - 2-d ose series) HPV vaccine (1 - 2-dose series) [place] Start: 2005 Pneumococcal 0-64 ye ars Vaccine (1 of 1 - PPSV23) Pneumococcal 0-64 years Vaccine (1 of 1 - PPSV23) [place], [place] Start: 2000 Varicella vaccine (1 of 2 - 2-dose childhood series) Varicella vaccine (1 of 2 - 2-dose childhood series) [place], [place] CBC W Auto Different ial panel - Blood CBC and differential Lab Routine Anemia, unspecified type Ordered: 08/17/2024 [facility] Comment on above: Ordered: 08/17/2024 Immunizations Immunization Date Immunization Notes Care Provider Kayla bragg 08-09-2023 influenza virus vacc ine, unspecified formulation Randee CARCAMO Work Phone: [facility] Payers Date Payer Category Payer Private Health Insurance [employer] [id number] 2020 Unknown [employer] [id number] 2020-Present [address] [place] [address] [id number] 2020 Unknown [id number] 2000 Unknown [id number] .355 1999 Unknown [id number] [id number] .355 2000 Unknown [id number] [id number] .185 1999 Unknown [id number] [id number] .1259 1999 Unknown [id number] [id number] .1259 1999 Unknown [id number] [id number] .1259 1999 Unknown [id number] [id number] .1259 1999 Unknown [id number] 2.16.840.1.039289.3.579.2 .1259 1999 Unknown [id number] 2.16.840.1.191241.3.579.2 .1259 1999 Unknown [id number] [id number] .1259 Unknown [employer] M [employer] [address] xxxxxxxxxxxx Effective for all dates [phone] [address] [place] [address] xxxxxxxxxxxx [id number] Social History Date Type Detail Facility Start: 01-14-2020 Tobacco smoking stat [facility] Current some day smoker [place], [place] Start: 01-14-2020 Alcohol intake Current drinke r of alcohol (finding) [place], [place] Start: 2000 Sex Assigned At Not on file [place] Start: 04-07-2024 Tobacco smoking stat [facility] Never smoked tobacco [facility] [...] Hyperlipidemia Father Delmar Breast cancer Maternal Grandmother Davin Cancer Maternal Grandmother Davin Diabetes Maternal Grandmother July Migraines Maternal Grandmother [...] nursing note reviewed. Exam conducted with a building engineer present. Vitals: There is no height or [...] Hyperlipidemia Father Delmar Breast cancer Maternal Grandmother Davin Cancer Maternal Grandmother July Diabetes Maternal Grandmother Davin Migraines Maternal Grandmother July Cancer Paternal Grandfather [...] of: DONA Velazco documented in this encounter [facility] Progress note 05-02-2021 Note Date & Type Note Facility 05-02-2021 Note HNO ID: [id number] Author: Christel Garrison OD Service: ? 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 * Chest Contusion (Ukrainian) * Rib Contusion (Ukrainian) documented in this encounter Assessments Diagnosis Contusion of chest wall, unspecified laterality, subsequent encounter Fall, initial encounter Additional Source Comments INFORMATION SOURCE (unrecogn ized section and content) DATE CREATED AUTHOR 10/15/2018 [facility] DATE CREATED AUTHOR AUTHOR'S ORGANIZ ATION 01/14/2020 [facility] DATE CREATED AUTHOR AUTHOR'S ORGANIZ ATION 11/22/2021 [facility] DATE CREATED AUTHOR AUTHOR'S ORGANIZ ATION 10/28/2023 [facility] DATE CREATED AUTHOR AUTHOR'S ORGANIZ ATION 08/18/2024 [facility] EPIC Reason for Visit (unrecogniz [...] BE BASED ON THE PRIMARY CLINICAL RECORDS. [employer] provides no warranty or guarantee of the accuracy or completeness of information in this document.
== END 2024-08-31 08:05 | disposition home or self-care (01) ==
LOC: NOMS 08:04
PROVIDERS: Visit Provider Obstetrics & Gynecology
DX: O26.843 Uterine size-date discrepancy, third trimester (principal); Z3A.31 31 weeks gestation of pregnancy
CPT/HCPCS: 76816

== ENCOUNTER 2024-09-01 11:42 | Outpatient (OUT) | payer OTHER, SELFPAY ==
--- OUTSIDE RECORDS SUMMARY | 2024-09-01 12:04 | XMS_ITS | CCD ---
Author Organization [facility] Care Team Providers Care Gas Charger Name Role Phone ELIAS WREN Unavailable Unavailable [...] MV-Min-Fe Fum-FA-DHA (/Folic Acid+DHA) 27-0.8-200 MG capsule (7 sources) Start: 11-06-2022 MV-Mi n-Fe Fum-FA-DHA (/Folic [...] 08-17-2024 Episodic Other and delivery including normal (7 sources) Second trimester ; Translations: [Encounter for supervision of normal , unspecified, second trimester] Onset: 08-17-2024 08-02-2024 Episodic Other upper respiratory infections (1 source) Acute pharyngitis, unspecified; Translations: [Acute pharyngitis, unspecified] Onset: 10-07-2018 Episodic Residual codes; unclassified (2 sources) Gestation period, 26 weeks; Translations: [26 weeks gestation of ] 08-02-2024 Episodic Residual codes; unclassified (5 sources) Gestation period, 28 weeks; Translations: [28 [...] Test Name Value Interpretation Reference Range Facility ALL CBC WITH AUTO DIFFon BASOPHILS ABSOLUTE AUTO 0 [facility] Basophils/100 WBC (Bld) 0.2 % 0.2 - 2.0 % [facility] Eosinophils/100 WBC (Bld) 0.6 % Low 0.9 - 7.0 % [facility] Erythrocyte distribution width (RBC) [Ratio] 13.8 % 11.0 - 15.0 % [facility] Hematocrit (Bld) [Volume fraction] 29.6 % Low 36.0 - 48.0 % [facility] Hemoglobin (Bld) [Mass/Vol] 9.9 g/dL Low 12.0 - 16.0 g/dL [facility] IMMATURE GRANULOCYTES ABS AUTO 0.04 High [facility] Immature granulocytes/100 WBC (Bld) 0.5 % 0.0 - 0.5 % [facility] Interpretation and review of laboratory results Abnormal [facility] LYMPHOCYTES ABSOLUTE AUTO 1.8 [facility] Lymphocytes/100 WBC (Bld) 21.8 % 20.5 - 60.0 % [facility] MCH (RBC) [Entitic mass] 31.7 pg 26.7 - 34.0 pg [facility] MCHC (RBC) [Mass/Vol] 33.4 g/dL 29.9 - 35.2 g/dL [facility] MCV (RBC) [Entitic vol] 94.9 fL 81.0 - 99.0 fL [facility] MONOCYTES ABSOLUTE AUTO 0.5 [facility] Monocytes/100 WBC (Bld) 6 % 1.7 - 12.0 % [facility] NEUTROPHILS ABSOLUTE AUTO 5.8 [facility] Neutrophils/100 WBC (Bld) 70.9 % 43.0 - 75.0 % [facility] Platelet mean volume (Bld) [Entitic vol] 9.6 fL 9.5 - 13.5 fL [facility] TBH EO # 0.1 [facility] TBH PLT 221 [facility] TB RBC 3.12 Low [facility] TB WBC 8.1 [facility] Urinalysis macro (dipstick) panel (U)on 08-17-2024 Bilirubin, UA Negative Negative - 4(70) +++ mg/dL [facility] Blood, UA Negative Negative - 50 Shaun/mcL [facility] Clarity, UA Clear [facility] Color, UA Yellow [facility] Glucose, UA Negative Negative - 1999(110) ++++ mg/dL [facility] Interpretation and review of laboratory results Abnormal [facility] Ketones, UA Positive Negative - 160(16) ++++ mg/dL [facility] Comment on above: large Leukocytes, UA Negative Negative - 500+++ Kathe/mcL [facility] Nitrite, UA Negative Negative - Positive [facility] pH, UA 6.5 5 - 9 [facility] Protein, UA Negative Negative - 1999(20) ++++ mg/dL [facility] Spec Grav, UA 1.01 1 - 1.03 [facility] Urobilinogen, UA 0.2 0.2 - 12 mg/dL [facility] Urinalysis macro (dipstick) panel (U)on 08-02-2024 Bilirubin, UA Negative Negative - 4(70) +++ mg/dL [facility] Blood, UA Negative Negative - 50 Shaun/mcL [facility] Clarity, UA Clear [facility] Color, UA Yellow [facility] Glucose, UA Negative Negative - 1999(110) ++++ mg/dL [facility] Interpretation and review of laboratory results Abnormal [facility] Ketones, UA Positive Negative - 160(16) ++++ mg/dL [facility] Comment on above: trace Leukocytes, UA Negative Negative - 500+++ Kathe/mcL [facility] Nitrite, UA Negative Negative - Positive [facility] pH, UA 6.5 5 - 9 [facility] Protein, UA Negative Negative - 1999(20) ++++ mg/dL [facility] Spec Grav, UA 1.020 1 - 1.03 [facility] Urobilinogen, UA 0.2 0.2 - 12 mg/dL [facility] XR RIBS BILATERAL (3 VIEWS)o n 01-15-2020 [...] Interpreted by: Frantz Urias MD Signed by: Franzt Urias MD 01/14/20 Final result Normal [facility] XR RIBS BILATERAL (3 VIEWS)o n 01-14-2020 INR Coag (Bld) [Relative time] NO ACUTE ACTIVE CARDIOPULMONARY PROCESS. NO ACUTE FRACTURES [place] EXAMINATION: XR RIBS BILATERAL (3 VIEWS) CLINICAL HISTORY: Status post fall on concrete steps this morning. Back pain COMPARISONS: None FINDINGS: 5 views of the chest and ribs are submitted. The cardiac silhouette is of normal size configuration. Pulmonary vascular unremarkable. Right sided trachea. No focal infiltrates. No effusions. No Pneumothoraces. Additional views of left and right ribs show no fracture. [place], [place] Vj, Chpo Incoming Radiant Results From link [employer] - 01/14/2020 11:44 PM EDT EXAMINATION: XR [...] ACUTE ACTIVE CARDIOPULMONARY PROCESS. NO ACUTE FRACTURES [place], [place] Culture, Respiratory (Upper) on 10-07-2018 Culture, Respiratory (Upper) BILL#: [id number] : 89 AGE: SEX:FFRANKSOURCE: Throat/Pharynx COLLECTED: 10/07/18 05:25ANTIBIOTICS AT ARABELLA.: RECEIVED : 10/10/18 11:49SITE:R E S U L T SRESPIRATORY CULTURE,UPPER FINAL 10/12/18 08:05NORMAL THROAT ANDREW. Normal [facility] Healthcare Comment on above: Performed By: #### C XRSU ####[facility] [address] [place] [address] Hepatitis B Surface Abon Hepatitis B Surface Ab 4.4 mIU/mL Normal <10 [facility] Comment on above: Result Comment: INTE RPRETIVE CRITERIA:<10 mIU/mL....NONREACTIVE>=10 mIU/mL...REACTIVE.Patients receiving more than 5 mg/day of biotin may have interfin test results. A sample should be taken no sooner than eightafter previous dose. Contact [phone] for additional infor Hepatitis B Surface Antigeno n 04-04-2018 Hepatitis B Surface Antigen NONREACTIVE Normal NONREACTIVE [facility] Comment on above: Result Comment: Rose Mary ents receiving more than 5 mg/day of biotin may have interfin test results. A sample should be taken no sooner than eightafter previous dose. Contact [phone] for additional infor Quantiferon- TB Gold in Tube on 04-04-2018 Quantiferon- Mitogen minus NIL 9.62 IU/mL Normal [facility] Comment on above: Performed By: #### Q FTG ####[id number] [place] [address] Quantiferon- NIL 0.11 IU/mL Normal [facility] Comment on above: Result Comment: Perf ormed by [facility],[address] [place] [address] [employer]jo[employer], Ashwin Cramer MD - Lab. Director Performed By: #### Q FTG ####[id number] [place] [address] Quantiferon-TB Gold in Tube Negative Normal Negative [facility] Comment on above: Result [...] to DetectMycobacterium tuberculosis Infection --- [place], 2010(http://www.cdc.gov/mmwr/preview/mmwrhtml/wl3805j3.htm), forinformation concerning test performance in low-prevalencepopulations and use in occupational screening. Performed By: #### Q FTG ####[id number] [place] [address] Vital Signs Date Time Vital Sign Value Performing Clinician Facility 08-17-2024 09:05-0400 Body weight 86.24 kg Mamie Brianna DO Work Phone: [facility] 08-17-2024 09:05-0400 Diastolic blood pressure 70 mm[Hg] Mamie Brianna DO Work Phone: [facility] 08-17-2024 09:05-0400 Systolic blood pressure 110 mm[Hg] Mamie Brianna DO Work Phone: [facility] 08-02-2024 14:39-0400 Body weight 86.18 kg Randee Rosado PA Work Phone: [facility] 08-02-2024 14:39-0400 Diastolic blood pressure 76 mm[Hg] Randee Lamar PA Work Phone: [facility] 08-02-2024 14:39-0400 Systolic blood pressure 118 mm[Hg] Randee Rosado PA Work Phone: [facility] 01-15-2020 00:11-0400 Body Temperature 98.01 [degF] [place] 01-15-2020 00:11-0400 BP Diastolic 65 mm[Hg] [place] [facility] [place] 01-15-2020 00:11-0400 BP Systolic 130 mm[Hg] [facility] [place] 01-15-2020 00:11-0400 Pulse (Heart Rate) 65 /min [place] [facility] [place] 01-15-2020 00:11-0400 Pulse Oximetry 98 % [facility] [place] 01-15-2020 00:11-0400 Respiratory Rate 18 /min [place] [facility], [place] 01-14-2020 22:40-0400 BMI (Body Mass Index) 30.79 kg/m2 [facility] [place] 01-14-2020 22:40-0400 Body weight 83.92 kg [facility] [place] 01-14-2020 22:40-0400 Height 165.1 cm [facility] [place] 04-04-2018 18:43-0400 Body mass index (BMI) [Ratio] 0.00 IU/mL ELIAS WREN [facility] Comment on above: Performed By: #### QFTG ####[id number] [place] [address] Encounters Encounter Date Encounter Type Care Provider Facility Start: 08-30-2024 End: 08-30-2024 [facility] Result Encounter Mamie Brianna DO Work Phone: [facility] Unsolicited Start: 08-30-2024 End: 08-30-2024 [facility] Result Encounter Mamie Brianna DO Work Phone: [facility] Unsolicited Start: 08-17-2024 End: 08-17-2024 Bamboo flowsheet Mamie [...] Start: 08-02-2024 End: 08-02-2024 flow sheet Randee Rosado PA Work Phone: [facility] Comment on [...] Start: 07-29-2023 End: 10-28-2023 ambulatory Neal Campoverde Facility:[facility] Start: 01-15-2020 End: 01-15-2020 Emergency department patient visit ELIAS [facility] Start: 01-14-2020 End: 01-15-2020 Emergency department patient visit Willi Stephanie Carver Work Phone: [facility] ED Comment on above: Contusion of chest w all, unspecified laterality, subsequent encounter (Primary Dx); Fall, initial encounter Start: 10-07-2018 Patient encounter procedure ELIAS WREN Facility:[facility] Start: 04-04-2018 [facility] Procedures Date Procedure Procedure Detail Performing Clinician Start: 08-30-2024 ALL CBC WITH AUTO DIFF Mamie Brianna DO Work Phone: Start: 08-17-2024 Urnls dip stick/tabl et rgnt non-auto w/o micrscp Mamie Brianna DO Work Phone: Start: 08-02-2024 Urnls dip stick/tabl et rgnt non-auto w/o micrscp Randee CARCAMO Work Phone: Start: 01-15-2020 Radex ribs bilateral 3 views ELIAS WREN Start: 01-14-2020 Radex ribs bilateral 3 views Willi Brown Kody Work Phone: Plan of Treatment Date Care Activity Detail Author Start: 2049 Shingles Vaccine (1 of 2) Shingles Vaccine (1 of 2) [place], [place] Start: 08-31-2024 End: 08-31-2024 Patient encounter procedure 08/31/2024 8:30 AM EST Routine [facility] [address] [facility] [phone] Mamie Reed, DO [address], [place] [address] [facility] Start: 08-31-2024 End: 08-31-2024 Professional / ancillary services management 08/31/2024 8:00 AM EST Ancillary Procedure [facility] [address] [facility] [phone] [facility] Start: 08-17-2024 End: 08-17-2025 US for US OB SCAN FOR GROWTH Imaging Routine Third trimester Size of fetus inconsistent with dates in third trimester Expected: 08/17/2024 (Approximate), Expires: 08/17/2025 [facility] Work Phone: Comment on above: Expected: 08/17/2024 (Approximate), Expires: 08/17/2025 Start: 08-17-2024 End: 08-17-2024 Patient encounter procedure 08/17/2024 8:50 AM EDT Routine [facility] [address] [facility] [place] [place] [phone] Mamie Reed, DO [address] [place] [address] [facility] Start: 06-25-2024 Influenza vaccination Influenza Vacc ine (#1) [facility] Start: 06-25-2019 Influenza vaccination Flu vaccine (# 1) [place], [place] Start: 2015 Chlamydia screen Chlamydia screen [place], [place] Start: 2014 HIV screen HIV screen [place], [place] Start: 2010 DTaP/Tdap/Td vaccine (6 - Tdap) DTaP/Tdap/Td vaccine (6 - Tdap) [place], [place] Start: 2010 HPV vaccine (1 - 2-d ose series) HPV vaccine (1 - 2-dose series) [place] Start: 2005 Pneumococcal 0-64 ye ars Vaccine (1 of 1 - PPSV23) Pneumococcal 0-64 years Vaccine (1 of 1 - PPSV23) [place], [place] Start: 2000 Varicella vaccine (1 of 2 - 2-dose childhood series) Varicella vaccine (1 of 2 - 2-dose childhood series) [place], [place] CBC W Auto Different ial panel - Blood CBC and differential Lab Routine Anemia, unspecified type Ordered: 08/17/2024 [facility] Comment on above: Ordered: 08/17/2024 Immunizations Immunization Date Immunization Notes Care Provider Kayla fuentes 08-09-2023 influenza virus vacc ine, unspecified formulation Randee CARCAMO Work Phone: [facility] Healthcare Payers Date Payer Category Payer Private Health Insurance [employer] [id number] 2020 Unknown [employer] [id number] 2020-Present [address] [place] [address] [id number] 2020 Unknown [id number] 1999 Unknown [id number] 1999 Unknown [id number] .355 1999 Unknown [id number] 1999 Unknown [id number] .1259 1999 Unknown [id number] .1259 1999 Unknown [id number] .1259 1999 Unknown [id number] [id number] .1259 1999 Unknown [id number] [id number] .1259 1999 Unknown [id number] [id number] .1259 1999 Unknown [id number] .1259 Unknown [employer] M [employer] [address] xxxxxxxxxxxx Effective for all dates [phone] [address] [place] [address] xxxxxxxxxxxx [id number] Social History Date Type Detail Facility Start: 01-14-2020 [facility] [place] Start: 01-14-2020 Alcohol intake Current drinke r of alcohol (finding) [place], [place] Start: 2000 Sex Assigned At Not on file M [place], [place] Start: 04-07-2024 Tobacco smoking stat us NHIS Never smoked tobacco [facility] Start: 04-07-2024 Tobacco use and exposure Smokeless tobacco non-user [facility] Start: 08-02-2024 End: 08-17-2024 Alcoholic beverage intake Ex-drinker (finding) [facility] Start: 04-07-2024 History of Social function [facility] Start: 04-07-2024 Tobacco use panel [facility] Start: 02-14-2024 [facility] History of Present illness Narrative 08-17-2024 Jimena Robbins, NEAL - 08/17/2024 9:00 AM EDT Note Date [...] Hyperlipidemia Father Delmar Breast cancer Maternal Grandmother July Cancer Maternal Grandmother Melville Diabetes Maternal Grandmother [place] Migraines Maternal Grandmother Melville Cancer Paternal Grandfather Lit Hyperlipidemia Paternal Grandmother [...] nursing note reviewed. Exam conducted with a data analytics developer present. Vitals: There is no height or [...] Hyperlipidemia Father Delmar Breast cancer Maternal Grandmother July Cancer Maternal Grandmother Melville Diabetes Maternal Grandmother [place] Migraines Maternal Grandmother July Cancer Paternal Grandfather [...] of: DONA Velazco documented in this encounter [facility] Progress note 05-02-2021 Note Date & Type Note Facility 05-02-2021 Note HNO ID: [id number] Author: Christel Garrison OD Service: ? Author Type: AWAKE OVERNIGHT COUNSELOR Type: Progress Notes Filed: 05/02/2021 12:10 PM [...] Garrison, OD May 02, 2021 12:10 PM [facility] Evaluation note Note Date & Type [...] FoundNo Family History Records Found Advance Directives Documents on File Type Date Recorded Patient Vamper Expl anation Advance Directives and Living Will Power of Evs Tech Discharge Instructions * Attachments The following attachments cannot be sent through Care Everywhere. * Chest Contusion (Paraguayan) * Rib Contusion (Paraguayan) documented in this encounter Assessments Diagnosis Contusion of chest wall, unspecified laterality, subsequent encounter Fall, initial encounter Additional Source Comments INFORMATION SOURCE (unrecogn ized section and content) DATE CREATED AUTHOR 10/15/2018 [facility] DATE CREATED AUTHOR AUTHOR'S ORGANIZ ATION 01/14/2020 [facility] DATE CREATED AUTHOR AUTHOR'S ORGANIZ ATION 11/22/2021 [facility] DATE CREATED AUTHOR AUTHOR'S ORGANIZ ATION 10/28/2023 [facility] DATE CREATED AUTHOR AUTHOR'S ORGANIZ ATION 08/18/2024 [facility] EPIC Reason for Visit [...] BE BASED ON THE PRIMARY CLINICAL RECORDS. [employer] provides no warranty or guarantee of the accuracy or completeness of information in this document.
[2024-09-02 10:09] LABS: Transferrin 370 mg/dL (192-364)
== END 2024-09-01 11:43 | disposition home or self-care (01) ==
LOC: LAB 11:44
PROVIDERS: Visit Provider Obstetrics & Gynecology
DX: O99.013 Anemia complicating pregnancy, third trimester (principal)
CPT/HCPCS: 36415; 82728; 84466

== ENCOUNTER 2024-09-20 07:33 | Outpatient (RCR) | payer OTHER, SELFPAY ==
[2024-09-13 08:43] VITALS: BP 122/84; PULSE 96; TEMP 36.2; O2SAT 96
[2024-09-13] MEDS: FERRIC CARBOXYMALTOSE 750 MG in 0.9 % SODIUM CHLORIDE 250 ML 795 MG IV (08:54)
[2024-09-20 08:30] VITALS: BP 113/75; PULSE 89; TEMP 36.6; O2SAT 98
[2024-09-20] MEDS: FERRIC CARBOXYMALTOSE 750 MG in 0.9 % SODIUM CHLORIDE 250 ML 795 MG IV (08:53)
--- NOTE | 2024-09-20 09:28 | PC.NURSE ---
0830: Pt. to [facility] amb. for iron infusion. Seated in recliner. VSS. Denies any adverse reactions from last infusion. IV initiated to left ac on first attempt. See documentation. Pt. tolerates without c/o. 0853: IV Injectafer initiated at this time. Pt. denies needs or c/o. Drinking water from home. 0927: Injectafer completed without s&s of adverse reaction. IV flushed and d/c'd, pressure to site. 0928: D/c'd amb. to home.
== END 2024-09-20 12:47 | disposition home or self-care (01) ==
LOC: INF 07:33
PROVIDERS: Visit Provider Obstetrics & Gynecology
DX: D50.9 Iron deficiency anemia, unspecified (principal)
CPT/HCPCS: 96365; J1439

== ENCOUNTER 2024-10-10 10:34 | Outpatient (OUT) | payer OTHER, SELFPAY ==
[2024-10-10 10:55] LABS: Basophils Percent Auto 0.4 % (0.2-2.0); Eosinophils Percent Auto 0.5 % (0.9-7.0); Hematocrit 32.3 % (36.0-48.0); Immature Granulocytes Abs Auto 0.04 10^3/uL (0.00-0.03); Immature Granulocytes Pct Auto 0.5 % (0.0-0.5); Lymphocytes Absolute Auto 1.8 10^3/uL (1.2-3.8); Lymphocytes Percent Auto 22.9 % (20.5-60.0); Mean Corpuscular HGB Conc 34.1 g/dL (29.9-35.2); Mean Corpuscular Hemoglobin 32.5 pg (26.7-34.0); Mean Corpuscular Volume 95.6 fL (81.0-99.0); Mean Platelet Volume 10.1 fL (9.5-13.5); Monocytes Absolute Auto 0.5 10^3/uL (0.3-0.8); Monocytes Percent Auto 6.4 % (1.7-12.0); Neutrophils Absolute Auto 5.3 10^3/uL (1.4-6.5); Neutrophils Percent Auto 69.3 % (43.0-75.0); Platelet Count 177 10^3/uL (150-450); Red Blood Count 3.38 10^6/uL (4.20-5.40); Red Cell Distribution Width 15.9 % (11.0-15.0); White Blood Count 7.6 10^3/uL (4.0-11.0)
== END 2024-10-10 10:35 | disposition home or self-care (01) ==
LOC: LAB 10:35
PROVIDERS: Visit Provider Obstetrics & Gynecology
DX: O99.013 Anemia complicating pregnancy, third trimester (principal)
CPT/HCPCS: 36415; 85025

== ENCOUNTER 2024-10-11 08:12 | Outpatient (OUT) | payer OTHER, SELFPAY ==
--- NOTE | 2024-10-11 08:14 | US_ITS ---
The [address] [address] Patient Name: ANU REBOLLEDO MRN: [id number] date: 2000 Sex: F Assigned Patient Location: [facility] Current Patient Location: Accession/Order Number: [id number] Exam Date: 10/11/2024 08:15 Report Date: 10/12/2024 04:25 At the request of: MAMIE CASILLAS Procedure: US OB growth EXAMINATION: US OB growth HISTORY: SIZE INCONSISTENT WITH DATES COMPARISON: Ultrasound OB growth 08/31/2024 FINDINGS: Heart Rate: 132 bpm Amniotic Fluid Volume: 9.7 cm; normal range. Number: 1 Position: CEPHALIC BIOMETRY: BPD: 8.87 cm; 35 weeks 6 days; 48.30 % HC: 31.51 cm; 35 weeks 3 days; 7.50 % AC: 32.25 cm; 36 weeks 1 day; 58 % FL: 6.78 cm; 34 weeks 6 days; 13.80 % EFW: 2817.16 g; 36.30 % FL/AC: 21.02 FL/BPD: 76.44 HC/AC: 0.98 GESTATIONAL AGE: Age by EDC: 36 weeks 2 days MACIEJ by EDC: 2024-11-06 Age by US: 35 weeks 4 days MACIEJ by US: 2024-11-11 US/US OB growth IMPRESSION: 1. Single live intrauterine with growth detailed above. 2. Head circumference is at 8th percentile. Electronically authenticated by: KINGSTON RAI Date: 10/12/2024 04:25
== END 2024-10-11 08:13 | disposition home or self-care (01) ==
LOC: NOMS 08:12
PROVIDERS: Visit Provider Obstetrics & Gynecology
DX: O26.843 Uterine size-date discrepancy, third trimester (principal); Z3A.36 36 weeks gestation of pregnancy
CPT/HCPCS: 36415; 76816; 87081; 87150

== ENCOUNTER 2024-10-11 19:44 | Outpatient (REF) | payer OTHER, SELFPAY ==
--- OUTSIDE RECORDS SUMMARY | 2024-10-11 19:49 | XMS_ITS | CCD ---
Author Organization [facility] Care Team Providers Care Ct Scan Technologist Name Role Phone ELIAS WREN Unavailable Unavailable ELIAS WERN Unavailable Unavailable ELIAS WREN Unavailable Unavailable SIENA, ELIAS Unavailable Unavailable ELIAS WREN F Primary Care Unavailable WILLI CARVER Attending Unavailable Elias Wren Primary Care Provider Neal Campoverde Attending Unavailable Unavailable Primary Care Provider UnavailMAMIE Kay Attending Unavailable RANDEE ROSADO Attending Unavailable BRIANNA, MAMIE Attending Unavailable RANDEE ROSADO Attending Unavailable RANDEE ROSADO Attending Unavailable BRIANNA, MAMIE Attending Unavailable BRIANNA, MAMIE Attending Unavailable MAMIE REED Attending Unavailable Medications [...] MV-Min-Fe Fum-FA-DHA (/Folic Acid+DHA) 27-0.8-200 MG capsule (16 sources) Start: 11-06-2022 MV-Mi n-Fe Fum-FA-DHA (/Folic Acid+DHA) 27-0.8-200 MG capsule 11/06/2022 Active Problems Active Problems Problem Classification Problem Date Documented Da te Episodic/Chronic Deficiency and other anemia (2 sources) Anemia; Translations: [Anemia, unspecified] 08-17-2024 Episodic External cause codes: Fall (1 source) Fall; Translations: [Fall, initial encounter] Other complications of (12 sources) Anemia of ; Translations: [Anemia complicating , third trimester] Onset: 08-31-2024 08-31-2024 Chronic Other complications of (4 sources) size does not accord with dates; Translations: [Uterine size-date discrepancy, third trimester] 08-17-2024 Episodic Other and delivery including normal (20 sources) Second trimester ; Translations: [Encounter for supervision of normal , unspecified, second trimester] Onset: 08-17-2024 08-02-2024 Episodic Other upper respiratory infections (1 source) Acute pharyngitis, unspecified; Translations: [Acute pharyngitis, unspecified] Onset: 10-07-2018 Episodic Residual codes; unclassified (2 sources) Gestation period, 26 weeks; Translations: [26 weeks gestation of ] 08-02-2024 Episodic Residual codes; unclassified (14 sources) Gestation period, 28 weeks; Translations: [28 weeks gestation of ] Onset: 08-17-2024 08-17-2024 Episodic Residual codes; unclassified (10 sources) Gestation period, 30 weeks; Translations: [30 weeks gestation of ] Onset: 08-31-2024 08-31-2024 Episodic Residual codes; unclassified (2 sources) Gestation period, 32 weeks; Translations: [32 weeks gestation of ] 09-14-2024 Episodic Residual codes; unclassified (2 sources) Gestation period, 34 weeks; Translations: [34 weeks gestation of ] 09-27-2024 Episodic Superficial injury; contusion (1 source) Contusion [...] Range Facility Urinalysis macro (dipstick) panel (U)on 09-27-2024 Bilirubin, UA Negative Negative - 4(70) +++ mg/dL [facility] Blood, UA Negative Negative - 50 Shaun/mcL [facility] Clarity, UA Clear [facility] Color, UA Yellow [facility] Glucose, UA Negative Negative - 1999(110) ++++ mg/dL [facility] Interpretation and review of laboratory results Normal [facility] Ketones, UA Negative Negative - 160(16) ++++ mg/dL [facility] Leukocytes, UA Negative Negative - 500+++ Kathe/mcL [facility] Nitrite, UA Negative Negative - Positive [facility] pH, UA 6.5 5 - 9 [facility] Protein, UA Negative Negative - 1999(20) ++++ mg/dL [facility] Spec Grav, UA 1.025 1 - 1.03 [facility] Urobilinogen, UA 1.0 0.2 - 12 mg/dL [facility] Urinalysis macro (dipstick) panel (U)on 09-14-2024 Bilirubin, UA Negative Negative - 4(70) +++ mg/dL [facility] Blood, UA Negative Negative - 50 Shaun/mcL [facility] Clarity, UA Clear [facility] Color, UA Yellow [facility] Glucose, UA Negative Negative - 2000(110) ++++ mg/dL [facility] Interpretation and review of laboratory results Abnormal [facility] Ketones, UA Negative Negative - 160(16) ++++ mg/dL [facility] Leukocytes, UA Negative Negative - 500+++ Kathe/mcL [facility] Nitrite, UA Negative Negative - Positive [facility] pH, UA 6 5 - 9 [facility] Protein, UA Negative Negative - 1999(20) ++++ mg/dL [facility] Spec Grav, UA 1.02 1 - 1.03 [facility] Urobilinogen, UA 0.2 0.2 - 12 mg/dL [facility] Urinalysis macro (dipstick) panel (U)on 08-31-2024 Bilirubin, UA Negative Negative - 4(70) +++ mg/dL [facility] Blood, UA Negative Negative - 50 Shaun/mcL [facility] Clarity, UA Clear [facility] Color, UA Yellow [facility] Glucose, UA Negative Negative - 1999(110) ++++ mg/dL [facility] Interpretation and review of laboratory results Normal [facility] Ketones, UA Negative Negative - 160(16) ++++ mg/dL [facility] Leukocytes, UA Negative Negative - 500+++ Kathe/mcL [facility] Nitrite, UA Negative Negative - Positive [facility] pH, UA 7 5 - 9 [facility] Protein, UA Negative Negative - 1999(20) ++++ mg/dL [facility] Spec Grav, UA 1.01 1 - 1.03 [facility] Urobilinogen, UA 0.2 0.2 - 12 mg/dL [facility] ALL CBC WITH AUTO DIFFon BASOPHILS ABSOLUTE AUTO 0 [facility] Basophils/100 WBC (Bld) 0.2 % 0.2 - 2.0 % [facility] Eosinophils/100 WBC (Bld) 0.6 % Low 0.9 - 7.0 % [facility] Erythrocyte distribution width (RBC) [Ratio] 13.8 % 11.0 - 15.0 % [facility] Hematocrit (Bld) [Volume fraction] 29.6 % Low 36.0 - 48.0 % [facility] Hemoglobin (Bld) [Mass/Vol] 9.9 g/dL Low 12.0 - 16.0 g/dL [facility] IMMATURE GRANULOCYTES ABS AUTO 0.04 High [facility] Immature granulocytes/100 WBC (Bld) 0.5 % 0.0 - 0.5 % [facility] Interpretation and review of laboratory results Abnormal [facility] LYMPHOCYTES ABSOLUTE AUTO 1.8 [facility] Lymphocytes/100 WBC (Bld) 21.8 % 20.5 - 60.0 % [facility] MCH (RBC) [Entitic mass] 31.7 pg 26.7 - 34.0 pg [facility] MCHC (RBC) [Mass/Vol] 33.4 g/dL 29.9 - 35.2 g/dL [facility] MCV (RBC) [Entitic vol] 94.9 fL 81.0 - 99.0 fL [facility] MONOCYTES ABSOLUTE AUTO 0.5 [facility] Monocytes/100 WBC (Bld) 6 % 1.7 - 12.0 % [facility] NEUTROPHILS ABSOLUTE AUTO 5.8 [facility] Neutrophils/100 WBC (Bld) 70.9 % 43.0 - 75.0 % [facility] Platelet mean volume (Bld) [Entitic vol] 9.6 fL 9.5 - 13.5 fL [facility] TBH EO # 0.1 [facility]H PLT 221 [facility] TB RBC 3.12 Low [facility] TBH WBC 8.1 [facility] Urinalysis macro (dipstick) panel (U)on 08-17-2024 Bilirubin, UA Negative Negative - 4(70) +++ mg/dL [facility] Blood, UA Negative Negative - 50 Shaun/mcL [facility] Clarity, UA Clear [facility] Color, UA Yellow [facility] Glucose, UA Negative Negative - 1999(110) ++++ mg/dL [facility] Interpretation and review of laboratory results Abnormal [facility] Ketones, UA Positive Negative - 160(16) ++++ mg/dL [facility] Comment on above: large Leukocytes, UA Negative Negative - 500+++ Kathe/mcL [facility] Nitrite, UA Negative Negative - Positive [facility] pH, UA 6.5 5 - 9 [facility] Protein, UA Negative Negative - 1999(20) ++++ mg/dL [facility] Spec Grav, UA 1.01 1 - 1.03 [facility] Urobilinogen, UA 0.2 0.2 - 12 mg/dL [facility] Urinalysis macro (dipstick) panel (U)on 08-02-2024 Bilirubin, UA Negative Negative - 4(70) +++ mg/dL [facility] Blood, UA Negative Negative - 50 Shaun/mcL [facility] Clarity, UA Clear [facility] Color, UA Yellow [facility] Glucose, UA Negative Negative - 1999(110) ++++ mg/dL [facility] Interpretation and review of laboratory results Abnormal [facility] Ketones, UA Positive Negative - 160(16) ++++ mg/dL [facility] Comment on above: trace Leukocytes, UA Negative Negative - 500+++ Kathe/mcL [facility] Nitrite, UA Negative Negative - Positive [facility] pH, UA 6.5 5 - 9 [facility] Protein, UA Negative Negative - 1999(20) ++++ mg/dL [facility] Spec Grav, UA 1.020 1 - 1.03 [facility] Urobilinogen, UA 0.2 0.2 - 12 mg/dL [facility] Cytology Cervical or vaginal smear or scraping studyon 06-01-2024 [facility] XR RIBS BILATERAL (3 VIEWS)o n [...] Frantz Urias MD 01/14/20 Final result Normal [facility] XR RIBS BILATERAL (3 VIEWS)o n 01-14-2020 INR Coag (Bld) [Relative time] NO ACUTE ACTIVE CARDIOPULMONARY PROCESS. NO ACUTE FRACTURES [facility], [place] EXAMINATION: XR RIBS BILATERAL (3 VIEWS) CLINICAL HISTORY: Status post fall on concrete steps this morning. Back pain COMPARISONS: None FINDINGS: 5 views of the chest and ribs are submitted. The cardiac silhouette is of normal size configuration. Pulmonary vascular unremarkable. Right sided trachea. No focal infiltrates. No effusions. No Pneumothoraces. Additional views of left and right ribs show no fracture. [facility], [place] Vj, Chpo Incoming Radiant Results From [employer] - 01/14/2020 11:44 PM EDT EXAMINATION: XR [...] ACUTE ACTIVE CARDIOPULMONARY PROCESS. NO ACUTE FRACTURES [place], [place] Culture, Respiratory (Upper) on 10-07-2018 Culture, Respiratory (Upper) BILL#: [id number] : 89 AGE: SEX:FFRANKSOURCE: Throat/Pharynx COLLECTED: 10/07/18 05:25ANTIBIOTICS AT ARABELLA.: RECEIVED : 10/10/18 11:49SITE:R E S U L T SRESPIRATORY CULTURE,UPPER FINAL 10/12/18 08:05NORMAL THROAT ANDREW. Normal [facility] Comment on above: Performed By: #### C XRSU ####[facility] [id number] [place] [address] Hepatitis B Surface Abon Hepatitis B Surface Ab 4.4 mIU/mL Normal <10 [facility] Comment on above: Result Comment: INTE RPRETIVE CRITERIA:<10 mIU/mL....NONREACTIVE>=10 mIU/mL...REACTIVE.Patients receiving more than 5 mg/day of biotin may have interfin test results. A sample should be taken no sooner than eightafter previous dose. Contact [phone] for additional infor Hepatitis B Surface Antigeno n 04-04-2018 Hepatitis B Surface Antigen NONREACTIVE Normal NONREACTIVE [facility] Comment on above: Result Comment: Rose Mary ents receiving more than 5 mg/day of biotin may have interfin test results. A sample should be taken no sooner than eightafter previous dose. Contact [phone] for additional infor Quantiferon- TB Gold in Tube on 04-04-2018 Quantiferon- Mitogen minus NIL 9.62 IU/mL Normal [facility] Comment on above: Performed By: #### Q FTG ####[id number] [place] [address] Quantiferon- NIL 0.11 IU/mL Normal [facility] Comment on above: Result Comment: Perf ormed by [employer],[address] [place] [address] hpl[employer], Ashwin Cramer MD - Lab. Director Performed By: #### Q FTG ####[id number] [place] [id number] Quantiferon-TB Gold in Tube Negative Normal Negative [facility] Comment on above: Result Comment: [...] to DetectMycobacterium tuberculosis Infection --- [place], 2010(http://www.cdc.gov/mmwr/preview/mmwrhtml/ao8449y2.htm), forinformation concerning test performance in low-prevalencepopulations and use in occupational screening. Performed By: #### Q FTG ####[id number] [place] [address] Vital Signs Date Time Vital Sign Value Performing Clinician Facility 09-27-2024 13:49-0500 Body weight 88.81 kg Mamie Brianna DO Work Phone: [facility] 09-27-2024 13:49-0500 Diastolic blood pressure 66 mm[Hg] Mamie Brianna DO Work Phone: [facility] 09-27-2024 13:49-0500 Systolic blood pressure 114 mm[Hg] Mamie Brianna DO Work Phone: [facility] 09-14-2024 09:38-0500 Body weight 88 kg Randee Rosado PA Work Phone: [facility] 09-14-2024 09:38-0500 Diastolic blood pressure 68 mm[Hg] Randee Rosado PA Work Phone: [facility] 09-14-2024 09:38-0500 Systolic blood pressure 112 mm[Hg] Randee Rosado PA Work Phone: [facility] 08-31-2024 09:00-0500 Body weight 87.54 kg Mamie Brianna DO Work Phone: [facility] 08-31-2024 09:00-0500 Diastolic blood pressure 68 mm[Hg] Mamie Brianna DO Work Phone: [facility] 08-31-2024 09:00-0500 Systolic blood pressure 110 mm[Hg] Mamie Brianna DO Work Phone: [facility] 08-17-2024 09:05-0400 Body weight 86.24 kg Mamie Brianna DO Work Phone: [facility] 08-17-2024 09:05-0400 Diastolic blood pressure 70 mm[Hg] Mamie Brianna DO Work Phone: [facility] 08-17-2024 09:05-0400 Systolic blood pressure 110 mm[Hg] Mamie Brianna DO Work Phone: [facility] 08-02-2024 14:39-0400 Body weight 86.18 kg Randee CARCAMO Work Phone: [facility] 08-02-2024 14:39-0400 Diastolic blood pressure 76 mm[Hg] Randee CARCAMO Work Phone: [facility] 08-02-2024 14:39-0400 Systolic blood pressure 118 mm[Hg] Randee CARCAMO Work Phone: [facility] 01-15-2020 00:11-0400 Body Temperature 98.01 [degF] Willi Carver [place], [place] 01-15-2020 00:11-0400 BP Diastolic 65 mm[Hg] [facility] [place] 01-15-2020 00:11-0400 BP Systolic 130 mm[Hg] Willi Carver [facility] , [place] 01-15-2020 00:11-0400 Pulse (Heart Rate) 65 /min [facility] [place] 01-15-2020 00:11-0400 Pulse Oximetry 98 % Willi Carver [facility] , [place] 01-15-2020 00:11-0400 Respiratory Rate 18 /min [facility] [place] 01-14-2020 22:40-0400 BMI (Body Mass Index) 30.79 kg/m2 Willi Carver [facility], [place] 01-14-2020 22:40-0400 Body weight 83.92 kg [facility] [place] 01-14-2020 22:40-0400 Height 165.1 cm Willi Carver [facility] , [place] 04-04-2018 18:43-0400 Body mass index (BMI) [Ratio] 0.00 IU/mL ELIAS [facility] Comment on above: Performed By: #### QFTG ####[id number] [place] [address] Encounters Encounter Date Encounter Type Care Provider Facility Start: 09-27-2024 End: 09-27-2024 Bamboo flowsheet Mamie Brianna DO Work Phone: [facility] Start: 09-27-2024 End: 09-27-2024 Bamboo flowsheet Mamie Brianna DO Work Phone: [facility] Start: 09-27-2024 End: 09-27-2024 flow sheet Mamie Brianna DO Work Phone: [facility] Comment on above: Third trimester preg maycol; 34 weeks gestation of ; Anemia during in third trimester; Size of fetus inconsistent with dates in third trimester Start: 09-14-2024 End: 09-14-2024 Bamboo flowsheet Randee CARCAMO Work Phone: [facility] Start: 09-14-2024 End: 09-14-2024 Bamboo flowsheet Randee Rosado PA Work Phone: [facility] Start: 09-14-2024 End: 09-14-2024 ambulatory RANDEE ROSADO Not Available Start: 09-14-2024 End: 09-14-2024 flow sheet Randee CARCAMO Work Phone: [facility] Comment on above: Third trimester preg maycol; 32 weeks gestation of Start: 08-31-2024 End: 08-31-2024 Bamboo flowsheet Mamie Brianna DO Work Phone: [facility] Start: 08-31-2024 End: 08-31-2024 Bamboo flowsheet Mamie Brianna DO Work Phone: [facility] Start: 08-31-2024 End: 08-31-2024 ambulatory MAMIE BRIANNA Not Available Start: 08-31-2024 End: 08-31-2024 flow sheet Mamie Brianna DO Work Phone: [facility] Comment on above: Third trimester preg maycol; 30 weeks gestation of ; Anemia during in third trimester Start: 08-30-2024 End: 08-30-2024 [facility] Result Encounter [...] type Start: 08-02-2024 End: 08-02-2024 ambulatory RANDEE PAYNEEY Not Available Start: 08-02-2024 End: 08-02-2024 flow sheet Randee CARCAMO Work Phone: [facility] Comment on above: Second trimester pre gnancy; 26 weeks gestation of Start: 08-02-2024 End: 08-02-2024 Bamboo flowsheet Randee CARCAMO Work Phone: [facility] Start: 08-02-2024 End: 08-02-2024 Bamboo flowsheet Randee CARCAMO Work Phone: [facility] Start: 07-03-2024 End: 07-03-2024 ambulatory RANDEE ALONZO Not Available Start: 06-01-2024 End: 06-01-2024 ambulatory MAMIE BRIANNA Not Available Start: 05-02-2024 End: 05-02-2024 ambulatory MAMIE BRIANNA Not Available Start: 04-07-2024 End: 04-07-2024 ambulatory MAMIE BRIANNA Not Available Start: 10-20-2023 End: 10-20-2023 ambulatory MAMIE BRIANNA Not Available Start: 07-29-2023 End: 10-28-2023 ambulatory Neal Campoverde [facility] Start: 01-15-2020 End: 01-15-2020 [facility] Start: 01-14-2020 End: 01-15-2020 Emergency department patient visit Willi Carver Work Phone: [facility] Comment on above: Contusion of chest w all, unspecified laterality, subsequent encounter (Primary Dx); Fall, initial encounter Start: 10-07-2018 Patient encounter procedure ELIAS WREN Facility:[email or web address] [email or web address] Start: 04-04-2018 [facility] Procedures Date Procedure Procedure Detail Performing Clinician Start: 09-27-2024 Urnls dip stick/tabl et rgnt non-auto w/o micrscp Mamie Brianna DO Work Phone: Start: 09-14-2024 Urnls dip stick/tabl et rgnt non-auto w/o micrscp Randee CARCAMO Work Phone: Start: 08-31-2024 Urnls dip stick/tabl et rgnt non-auto w/o micrscp Mamie Brianna DO Work Phone: Start: 08-30-2024 ALL CBC WITH AUTO DIFF Mamie Brianna DO Work Phone: Start: 08-17-2024 Urnls dip stick/tabl et rgnt non-auto w/o micrscp Mamie Brianna DO Work Phone: Start: 08-02-2024 Urnls dip stick/tabl et rgnt non-auto w/o micrscp Randee CARCAMO Work Phone: Start: 06-01-2024 Cytp cerv/vag auto t hin layer prep mnl screen Randee CARCAMO Work Phone: Start: 01-15-2020 Radex ribs bilateral 3 views ELIAS WREN Start: 01-14-2020 Radex ribs bilateral 3 views Willi Stephanie Akusoba Work Phone: Plan of Treatment Date Care Activity Detail Author Start: 2049 Shingles Vaccine (1 of 2) Shingles Vaccine (1 of 2) [facility], [place] Start: 10-11-2024 End: 10-11-2024 Patient encounter procedure 10/11/2024 8:40 AM EST Routine [facility] [address] [place] [address] Randee Rosado PA [address] [address] [facility] Start: 10-11-2024 End: 10-11-2024 Professional / ancillary services management 10/11/2024 8:00 AM EST Ancillary Procedure [facility] [address] [place] [address] [facility] Start: 09-27-2024 End: 09-27-2025 US for US OB SCAN FOR GROWTH Imaging Routine Size of fetus inconsistent with dates in third trimester Expected: 09/27/2024 (Approximate), Expires: 09/27/2025 [facility] Comment on above: Expected: 09/27/2024 (Approximate), Expires: 09/27/2025 Start: 09-27-2024 End: 09-27-2024 Patient encounter procedure 09/27/2024 1:20 PM EST Routine [facility] [address] [place] [id number] Mamie Reed, DO [address] [place] [address] Arrived [facility] Comment on above: Arrived Start: 09-14-2024 End: 09-14-2024 Patient encounter procedure 09/14/2024 9:20 AM EST Routine [facility] [address] [place] [address] Randee Rosado PA [address] [place] [address] [facility] Start: 08-31-2024 End: 08-31-2024 Patient encounter procedure 08/31/2024 8:30 AM EST Routine [facility] [address] [place] [address] Mamie Reed, DO [address] [place] [address] [facility] Start: 08-31-2024 End: 08-31-2024 Professional / ancillary services management 08/31/2024 8:00 AM EST Ancillary Procedure [facility] [address] [place] [id number] [facility] Start: 08-17-2024 End: 08-17-2025 US for US OB SCAN FOR GROWTH Imaging Routine Third trimester Size of fetus inconsistent with dates in third trimester Expected: 08/17/2024 (Approximate), Expires: 08/17/2025 [facility] Work Phone: Comment on above: Expected: 08/17/2024 (Approximate), Expires: 08/17/2025 Start: 08-17-2024 End: 08-17-2024 Patient encounter procedure 08/17/2024 8:50 AM EDT Routine [facility] [address] [place] [id number] Mamie Reed, [address] [place], [place] [id number] [facility] Start: 06-25-2024 Influenza vaccination Influenza Vacc ine (#1) [facility] Start: 06-25-2019 Influenza vaccination Flu vaccine (# 1) [place], [place] Start: 2015 Chlamydia screen Chlamydia screen [place], [place] Start: 2014 HIV screen HIV screen [place], [place] Start: 2010 DTaP/Tdap/Td vaccine (6 - Tdap) DTaP/Tdap/Td vaccine (6 - Tdap) [place], [place] Start: 2010 HPV vaccine (1 - 2-d ose series) HPV vaccine (1 - 2-dose series) [place], [place] Start: 2005 Pneumococcal 0-64 ye ars Vaccine (1 of 1 - PPSV23) Pneumococcal 0-64 years Vaccine (1 of 1 - PPSV23) [place], [place] Start: 2000 Varicella vaccine (1 of 2 - 2-dose childhood series) Varicella vaccine (1 of 2 - 2-dose childhood series) [place], [place] CBC W Auto Different ial panel - Blood CBC and differential Lab Routine Anemia, unspecified type Ordered: 08/17/2024 [facility] Comment on above: Ordered: 08/17/2024 CBC W Auto Different ial panel - Blood CBC and differential Lab Routine Anemia during in third trimester Ordered: 09/27/2024 [facility] Work Phone: Comment on above: Ordered: 09/27/2024 Ferritin [Mass/volum e] in Serum or Plasma Ferritin Lab Routine Anemia during in third trimester Ordered: 08/31/2024 [facility] Comment on above: Ordered: 08/31/2024 Transferrin [Mass/volume] in Serum or Plasma Transferrin Lab Routine Anemia during in third trimester Ordered: 08/31/2024 [facility] Work Phone: Comment on above: Ordered: 08/31/2024 Immunizations Immunization Date Immunization Notes Care Provider Fa cility 08-30-2024 influenza virus vacc ine, unspecified formulation Mamie Brianna DO Work Phone: [facility] 08-09-2023 influenza virus vacc ine, unspecified formulation Randee CARCAMO Work Phone: [facility] Payers Date Payer Category Payer Private Health Insurance [employer] [id number] 2020 Unknown [employer] [id number] 2020-Present [address] [place] [address] [id number] 2020 Unknown [id number] 1999 Unknown [id number] .355 1999 Unknown [id number] [id number] .355 1999 Unknown [id number] [id number] .185 1999 Unknown [id number] [id number] .1259 1999 Unknown [id number] 2.16.840.1.070382.3.579.2 .1259 1999 Unknown [id number] [id number] .1259 1999 Unknown [id number] 2.16.840.1.953791.3.579.2 .1259 1999 Unknown [id number] 2.16.840.1.729397.3.579.2 .1259 1999 Unknown [id number] 2.16.840.1.397032.3.579.2 .1259 1999 Unknown [id number] 2.16.840.1.030225.3.579.2 .9 1999 Unknown [id number] 2.16.840.1.967885.3.579.2 .1259 1999 Unknown [id number] [id number] .1259 Unknown [employer] [address] xxxxxxxxxxxx Effective for all dates [phone] [address] [place] [address] xxxxxxxxxxxx [id number] Social History Date Type Detail Facility Start: 01-14-2020 [facility] smoker [place], [place] Start: 01-14-2020 Alcohol intake Current drinke r of alcohol (finding) [place], [place] Start: 2000 Sex Assigned At Not on file M shiela [facility] SARAH RAMOS Start: 04-07-2024 Tobacco smoking stat [facility] Never smoked tobacco [facility] Start: 04-07-2024 Tobacco use and exposure Smokeless tobacco non-user [facility] Start: 08-02-2024 End: 09-27-2024 Alcoholic beverage intake Ex-drinker (finding) [facility] Start: 04-07-2024 History of Social function [facility] Start: 04-07-2024 Tobacco use panel [facility] Start: 02-14-2024 [facility] Clinical Notes 05-02-2021 to 09-27-2024 Clarita Duncan, COMMUNITY HEALTH COUNSELOR - 09/27/2024 1:20 PM Nu Nascimento MA - 09/14/2024 9:20 AM ESTSusan Spitlezulema, COMMUNITY HEALTH COUNSELOR - 08/31/2024 8:30 AM ESTSusan Spitler, [facility] - 08/17/2024 9:00 AM EDT Note Date & Type Note Facility 09-27-2024 History of Present illness Narrative Reason for Appointment: Patient ID: Jennifer Smith is a 24 y.o. female who presents for Routine Visit Patient presents today for Return OB appointment. MEDICATIONS Current Outpatient Medications Medication Instructions MV-Min-Fe Fum-FA-DHA (/Folic Acid+DHA) 27-0.8-200 MG capsule ALLERGIES No Known Allergies PROBLEMS Active Ambulatory Problems Diagnosis Date Noted 28 weeks gestation of 08/17/2024 Third trimester 08/17/2024 Anemia during in third trimester 08/31/2024 30 weeks gestation of 08/31/2024 Resolved Ambulatory Problems Diagnosis Date Noted No [...] cancer Maternal Grandmother July Cancer Maternal Grandmother [place] Diabetes Maternal Grandmother July Migraines Maternal Grandmother [place] Cancer Paternal Grandfather Lit Hyperlipidemia Paternal Grandmother Venu Hypertension Paternal Grandmother Venu SURGICAL HISTORY Past Surgical History: Procedure Laterality Date WISDOM TOOTH EXTRACTION REVIEW OF SYSTEMS Review of Systems: Review of Systems Constitutional: Negative. HENT: Negative. Eyes: Negative. Respiratory: Negative. Cardiovascular: Negative. Gastrointestinal: Negative. Genitourinary: Negative. Musculoskeletal: Negative. Skin: Negative. Neurological: Negative. All other systems reviewed and are negative. Hematological: Negative. Endocrine: Negative. Allergic/Immunologic: Negative. OBJECTIVE Objective: Physical Exam Constitutional: Appearance: Normal [...] nursing note reviewed. Exam conducted with a outreach professional present. Vitals: There is no height or weight on file to calculate BMI. BP: 114/66 Patient's last menstrual period was 01/31/2024. ASSESSMENT & PLAN ICD-10-CM 1. Third trimester Z34.93 POCT urinalysis dipstick manually resulted 2. 34 weeks gestation of Z3A.34 POCT urinalysis dipstick manually resulted 3. Anemia during in third trimester O99.013 CBC and differential 4. Size of fetus inconsistent with dates in third trimester O26.843 US OB SCAN FOR GROWTH Return OB: Patient presents today for a routine obstetrics appointment. Patient is currently 34w2d . Patient states she is doing well but has complaints of being tired due to current . Patient has verbalizes frequent movement. labor precautions was discussed/given and patient was instructed to perform kick counts three times a day. Orders Placed This Encounter Procedures US OB SCAN FOR GROWTH CBC and differential POCT urinalysis dipstick manually resulted Follow Up: Patient is to return to office in 2 week for routine OB appointment. Documented by Clarita Duncan LPN on behalf of: Mamie Reed DO documented in this encounter [facility] 09-14-2024 History of Present illness Narrative Reason for Appointment: Patient ID: Jennifer Smith is a 24 y.o. female who presents for Routine Visit Patient presents today for Return OB appointment. MEDICATIONS Current Outpatient Medications Medication Instructions MV-Min-Fe Fum-FA-DHA (/Folic Acid+DHA) 27-0.8-200 MG capsule ALLERGIES No Known Allergies PROBLEMS Active Ambulatory Problems Diagnosis Date Noted 28 weeks gestation of 08/17/2024 Third trimester 08/17/2024 Anemia during in third trimester 08/31/2024 30 weeks gestation of 08/31/2024 Resolved Ambulatory Problems Diagnosis Date Noted No [...] cancer Maternal Grandmother July Cancer Maternal Grandmother [place] Diabetes Maternal Grandmother July Migraines Maternal Grandmother [place] Cancer Paternal Grandfather Lit Hyperlipidemia Paternal Grandmother Venu Hypertension Paternal Grandmother Venu SURGICAL HISTORY Past Surgical History: Procedure Laterality Date WISDOM TOOTH EXTRACTION REVIEW OF SYSTEMS Review of Systems: Review of Systems OBJECTIVE Objective: OBGyn Exam Vitals: There is no height or weight on file to calculate BMI. BP: Patient's last menstrual period was 01/31/2024. ASSESSMENT & PLAN ICD-10-CM 1. Third trimester Z34.93 2. 32 weeks gestation of Z3A.32 Return OB: Patient presents today for a routine obstetrics appointment. Patient is currently 32w3d . Patient states she is doing well but has complaints of being tired due to current . Patient has verbalizes frequent movement. labor precautions was discussed/given and patient was instructed to perform kick counts three times a day. No orders of the defined types were placed in this encounter. Follow Up: Patient is to return to office in 2 week for routine OB appointment. Documented by Deedee Nascimento MA on behalf of: DONA Velazco documented in this encounter [facility] 08-31-2024 History of Present illness Narrative Reason for Appointment: Patient ID: Jennifer Smith is a 24 y.o. female who presents for Routine Visit Patient presents today for Return OB appointment. MEDICATIONS Current Outpatient Medications Medication Instructions MV-Min-Fe Fum-FA-DHA (/Folic Acid+DHA) 27-0.8-200 MG capsule ALLERGIES No Known Allergies PROBLEMS Active Ambulatory Problems Diagnosis Date Noted 28 weeks gestation of 08/17/2024 Third trimester 08/17/2024 Anemia during in third trimester 08/31/2024 30 weeks gestation of 08/31/2024 Resolved Ambulatory Problems Diagnosis Date Noted No [...] cancer Maternal Grandmother July Cancer Maternal Grandmother July Diabetes Maternal Grandmother July Migraines Maternal Grandmother [place] Cancer Paternal Grandfather Lit Hyperlipidemia Paternal Grandmother [...] nursing note reviewed. Exam conducted with a outreach professional present. Vitals: There is no height or weight on file to calculate BMI. BP: 110/68 Patient's last menstrual period was 01/31/2024. ASSESSMENT & PLAN ICD-10-CM 1. Third trimester Z34.93 POCT urinalysis dipstick manually resulted 2. 30 weeks gestation of Z3A.30 3. Anemia during in third trimester O99.013 Transferrin Ferritin Patient presents today for a routine obstetrics appointment. Patient is currently 30w3d with a Estimated Date of Delivery: 11/06/24. Patient had growth scan today. Patient made aware that she will require Iron Infusions and given order to have Ferratin and Transferrin drawn. Then nursing will be able to prior auth infusion for fewer visits. Patient return to clinic in 2 weeks. Documented by Jimena Robbins LPN on behalf of: Mamie Reed DO documented in this encounter [facility] 08-17-2024 History of Present illness Narrative Reason for Appointment: Patient ID: [...] Hyperlipidemia Father [place] Breast cancer Maternal Grandmother [place] Cancer Maternal Grandmother [place] Diabetes Maternal Grandmother July Migraines Maternal Grandmother [...] nursing note reviewed. Exam conducted with a outreach professional present. Vitals: There is no height or [...] Mamie Reed DO documented in this encounter [facility] 08-02-2024 History of Present illness Narrative Reason for Appointment: Patient ID: [...] Hyperlipidemia Father [place] Breast cancer Maternal Grandmother [place] Cancer Maternal Grandmother [place] Diabetes Maternal Grandmother July Migraines Maternal Grandmother [place] Cancer Paternal Grandfather Lit Hyperlipidemia Paternal Grandmother [...] of: DONA Velazco documented in this encounter [facility] 05-02-2021 Note HNO ID: [id number] Author: Christel Garrison OD Service: ? 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 Christelzofia Garrison, OD May 02, 2021 12:10 PM [facility] Evaluation note Diagnosis Second trimester state, incidental 26 weeks gestation of [facility] Diagnosis 28 weeks gestation of Third trimester state, incidental Size of fetus inconsistent with dates in third trimester Anemia, unspecified type [facility] Diagnosis Third trimester state, incidental 30 weeks gestation of Anemia during in third trimester [facility] Diagnosis Third trimester state, incidental 32 weeks gestation of [facility] Diagnosis Third trimester state, incidental 34 weeks gestation of Anemia during in third trimester Size of fetus inconsistent with dates in third trimester documented in this encounter [facility] Summary Purpose Family History No Family History Records FoundNo Family History Records FoundNo Family History Records FoundNo Family History Records FoundNo Family History Records Found Advance Directives Documents on File Type Date Recorded 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 * Chest Contusion (Slovenian) * Rib Contusion (Slovenian) documented in this encounter Assessments Diagnosis Contusion of chest wall, unspecified laterality, subsequent encounter Fall, initial encounter Additional Source Comments INFORMATION SOURCE (unrecogn ized section and content) DATE CREATED AUTHOR 10/15/2018 [facility] DATE CREATED AUTHOR AUTHOR'S ORGANIZ ATION 01/14/2020 [facility] DATE CREATED AUTHOR AUTHOR'S ORGANIZ ATION 11/22/2021 [facility] DATE CREATED AUTHOR AUTHOR'S ORGANIZ ATION 10/28/2023 [facility] DATE CREATED AUTHOR AUTHOR'S ORGANIZ ATION 09/17/2024 [facility] EPIC Reason for Visit [...] BE BASED ON THE PRIMARY CLINICAL RECORDS. [facility] provides no warranty or guarantee of the accuracy or completeness of information in this document.
== END 2024-10-11 19:45 | disposition home or self-care (01) ==
LOC: LAB 19:44
PROVIDERS: Visit Provider Physician Assistant
DX: Z34.93 Encounter for supervision of normal pregnancy, unspecified, third trimester (principal)
CPT/HCPCS: 36415; 87081; 87150

== ENCOUNTER 2024-11-26 21:18 | Emergency (ER) | payer OTHER, SELFPAY ==
[2024-11-26 21:34] VITALS: BP 117/77; PULSE 95; TEMP 36.9; O2SAT 98; BMI 32.9
--- OUTSIDE RECORDS SUMMARY | 2024-11-26 21:34 | XMS_ITS | CCD ---
Author Organization [facility] Care Team Providers Care Floater Operator Name Role Phone ELIZABETH WREN Unavailable Unavailable SIENA, ELIZABETH Unavailable Unavailable SIENA, ELIZABETH Unavailable Unavailable SIENA, ELIZABETH Unavailable Unavailable ELIZABETH WREN F Primary Care Unavailable WILLI CARVER Attending Unavailable Elizabeth Wren F Primary Care Provider Unavailable Primary Care Provider Unavailabl e NONE, XXXX Primary Care Physician Unavailab le BRIANNA, JERSON Attending Unavailable BRIANNA, JERSON Attending Unavailable ALONZO, RANDEE Attending Unavailable ALONZO, RANDEE Attending Unavailable BRIANNA, JERSON Attending Unavailable BRIANNA, JERSON Attending Unavailable ALONZO, RANDEE Attending Unavailable BRIANNA, JERSON Attending Unavailable ALONZO, RANDEE Attending Unavailable BRIANNA, JERSON Attending Unavailable ALNOZO, RANDEE Attending Unavailable BRIANNA, JERSON Attending Unavailable BRIANNA, Jerson R Attending Unavailable BRIANNA, Jerson R Admitting Unavailable BRIANNA, Jerson R Attending Unavailable BRIANNA, Jerson R Admitting Unavailable BRIANNA, Jerson R Attending Unavailable BRIANNA, Jerson R Admitting Unavailable BRIANNA, Jerson R Admitting Unavailable BRIANNA, Jerson R Attending Unavailable Allergies Allergy Classification Reported Allergen(s) Allergy Type Date of Onset Reaction(s) Facility (2 sources) Unable to obtain; Translations: [Unable to obtain] Propensity to adverse reactions (disorder) [facility] Repository (2 sources) No Known Medication Allergies; Translations: [No Known Medication Allergies] Propensity to adverse reactions (disorder) [facility] Medications Current Medications Medication Drug Class(es) Dates Sig (Normalized) Sig (Original) cyclobenzaprine hydrochloride 10 mg oral tablet (1 source) Muscle Relaxant Start: 01-14-2020 End: 01-24-2020 take 1 tablet by mouth three times daily as needed for muscle spasms cyclobenzaprine (FLEXERIL) 10 MG tablet Take 1 tablet by mouth 3 times daily as needed for Muscle spasms 30 tablet 0 01/14/2020 01/24/2020 Active ferrous sulfate 325 mg oral tablet (3 sources) Start: 11-06-2024 take 325 mg by mouth once daily ferrous sulfate 325 mg, Oral, Daily, Refills(s) 0 Start Date: 11/06/24 Status: Ordered 2 ml ketorolac tromethamine 30 mg/ml cartridge [...] polysaccharide iron complex 391 mg oral capsule (18 sources) Start: 09-27-2024 take 1 capsule by mouth once daily ProFe 391.3 (180 Fe) MG capsule Take 1 capsule by mouth Daily 09/27/2024 Active Start: 07-24-2024 End: 08-23-2024 take 1 capsule by mouth once daily iron polysaccharides (ProFe) 391.3 (180 Fe) MG capsule Indications: Low hemoglobin Take 1 capsule (391.3 mg) by mouth Daily 30 capsule 11 07/24/2024 08/23/2024 Active Multivitamins (3 sources) Start: 11-06-2024 take 1 tablet by mouth once daily Multivitamins 1 tab(s), Oral, Daily, Refill(s) 0 Start Date: 11/06/24 Status: Ordered MV-Min-Fe Fum-FA-DHA (/Folic Acid+DHA) 27-0.8-200 MG capsule (20 sources) Start: 11-06-2022 MV-Mi n-Fe Fum-FA-DHA (/Folic Acid+DHA) 27-0.8-200 MG capsule 11/06/2022 Active Problems Active Problems Problem Classification Problem Date Documented Date Episodic/Chronic Deficiency and other anemia (2 sources) Anemia; Translations: [Anemia, unspecified] 08-17-2024 Episodic External cause codes: Fall (1 source) Fall; Translations: [Fall, initial encounter] Other complications of (20 sources) Anemia of ; Translations: [Anemia complicating , third trimester] Onset: 08-31-2024 08-31-2024 Chronic Other complications of (4 sources) size does not accord with dates; Translations: [Uterine size-date discrepancy, third trimester] 08-17-2024 Episodic Other complications of (4 sources) Finding of heart rate; Translations: [Maternal care for abnormalities of the heart rate or rhythm, unspecified trimester, not applicable or unspecified] Onset: 11-06-2024 11-06-2024 Episodic Other complications of (2 sources) Bradycardia - baseline heart rate; Translations: [Maternal care for abnormalities of the heart rate or rhythm, unspecified trimester, not applicable or unspecified] 11-06-2024 Episodic Other and delivery including normal (20 sources) Second trimester ; Translations: [Encounter for supervision of normal , unspecified, second trimester] Onset: 08-17-2024 08-02-2024 Episodic Other upper respiratory infections (1 source) Acute pharyngitis, unspecified; Translations: [Acute pharyngitis, unspecified] Onset: 10-07-2018 Episodic Residual codes; unclassified (2 sources) Gestation period, 26 weeks; Translations: [26 weeks gestation of ] 08-02-2024 Episodic Residual codes; unclassified (20 sources) Gestation period, 28 weeks; Translations: [28 weeks gestation of ] Onset: 08-17-2024 08-17-2024 Episodic Residual codes; unclassified (20 sources) Gestation period, 30 weeks; Translations: [30 weeks gestation of ] Onset: 08-31-2024 08-31-2024 Episodic Residual codes; unclassified (2 sources) Gestation period, 32 weeks; Translations: [32 weeks gestation of ] 09-14-2024 Episodic Residual codes; unclassified (2 sources) Gestation period, 34 weeks; Translations: [34 weeks gestation of ] 09-27-2024 Episodic Residual codes; unclassified (2 sources) Gestation period, 36 weeks; Translations: [36 weeks gestation of ] 10-11-2024 Episodic Residual codes; unclassified (2 sources) Gestation period, 37 weeks; Translations: [37 weeks gestation of ] 10-19-2024 Episodic Residual codes; unclassified (2 sources) Gestation period, 39 weeks; Translations: [39 weeks gestation of ] 10-30-2024 Episodic Residual codes; unclassified (4 sources) Gestation period, 40 weeks; Translations: [40 weeks gestation of ] Onset: 11-06-2024 11-06-2024 Episodic Superficial injury; contusion (1 source) Contusion of chest; Translations: [Contusion of chest wall, unspecified laterality, subsequent encounter] Episodic Tuberculosis (1 source) Tuberculosis Onset: 04-04-2018 Unclassified (2 sources) Acute pharyngitis, unspecified / J02.9(ICD-9) Onset: 10-07-2018 Unclassified (2 sources) Encounter for screening for other viral diseases / Z11.59(ICD-9) Onset: 04-04-2018 Past or Other Problems Problem Classification Problem Date Documented Da te Episodic/Chronic Other screening for suspected conditions (not mental disorders or infectious disease) (2 sources) Patient encounter status; Translations: [Encounter for screening for diabetes mellitus] 07-03-2024 Episodic Residual codes; unclassified (2 sources) Gestation period, 22 weeks; Translations: [22 weeks gestation of ] 07-03-2024 Episodic Unclassified (1 source) Encounter for screening for other viral diseases; Translations: [Encounter for screening for other viral diseases] Onset: 04-04-2018 Unclassified (5 sources) Onset: 08-06-2023 Resolved: 11-08-2024 11-06-2024 Results Test Name Value Interpretation Reference Range Facility Surgical Pathology Reporton 11-13-2024 [place] [address]- Surgical Pathology Report Collected Date/Time: 11/08/2024 16:19 EST Pathologist: Ritchie JOHNSON PhD, Irena Will Received Date/Time: 11/09/2024 07:52 EST Jerson REED DO, DO, Corey R 07 Surgical Pathology Report - 11/13/2024 10:17 EST - Auth (Verified) Final Diagnosis PLACENTA, VAGINAL DELIVERY: - THIRD TRIMESTER MOSCOSO PLACENTA WITH WEIGHT 357 GRAMS. - FOCAL ACUTE CHORIOAMNIONITIS IDENTIFIED. - TRIVASCULAR CORD WITH NO PATHOLOGIC CHANGES. - MATURE CHORIONIC VILLI COMPATIBLE WITH GESTATIONAL AGE. (Electronic Signature) Irena Dugan MD PhD 11/13/2024 10:17 Clinical Information Pre-Op Diagnosis: Labor and Delivery Procedure: Vaginal Delivery Post-Op Diagnosis: Labor and Delivery Gestational Age (Weeks): 40 Gestational Age (Days): 2 Specimen(s) Received Placenta Gross Description Received fresh labeled with patient name, number, and placenta is an intact placenta with attached membranes and umbilical cord. Membranes are marginally inserted and the point of rupture is approximately 5 cm from the margin. The membranes are pink and opaque. The umbilical cord is centrically inserted approximately 6 cm from the nearest free edge. It is 54 cm long and up to 1 cm in diameter. The cord cross-section contains three blood vessels. The placenta disc is ovoid measuring 17.5 x 15.5 x 2 cm and weighs 357 g without membranes and umbilical cord. Cross-sectioning through the placenta disc contains light red spongy granular tissue, an area of consolidation at the center of the placenta disc measuring 0.8 x 0.5 cm, and a mild amount of calcifications is present. Extractor Filler portion is submitted in three cassettes: 1 - Cord and membrane 2-3 - Placenta parenchyma (DC) DC:MCA Microscopic Description Microscopic examination performed unless gross only specified. Normal [facility] Comment on above: Performed By: #### 4 [id number] #### [facility] [address] [place] [address] CBC w/Indiceson 11-09-2024 Erythrocyte distribution width (RBC) [Ratio] 16.0 % High 10.9-14.2 [facility] Comment on above: Performed By: #### 2 [id number] ####[facility] [address] [place] [address] Hematocrit (Bld) [Volume fraction] 28.4 % Low 34.0-46.0 [facility] Comment on above: Performed By: #### 2 [id number] ####[facility] [address] [place] [address] Hemoglobin (Bld) [Mass/Vol] 9.9 g/dL Low 12.0-16.0 [facility] Comment on above: Performed By: #### 2 [id number] ####[address] [place] [address] MCH (RBC) [Entitic mass] 33.3 pg Normal 27.0-34.0 [facility] Comment on above: Performed By: #### 2 [id number] ####[address] [address] MCHC (RBC) [Mass/Vol] 34.8 g/dL Normal 31.4-36.0 [facility] Comment on above: Performed By: #### 2 [id number] ####[address] [address] MCV (RBC) [Entitic vol] 95.8 fL Normal 80.0-100.0 [facility] Comment on above: Performed By: #### 2 [id number] ####[address] [address] Platelet mean volume (Bld) [Entitic vol] 9.0 fL Normal 6.4-10.8 [facility] Comment on above: Performed By: #### 2 [id number] ####[address] [address] Platelets (Bld) [#/Vol] 154.0 E9/L Normal 150.0-500.0 [facility] Comment on above: Performed By: #### 2 [id number] ####[address] [address] RBC (Bld) [#/Vol] 3.0 E12/L Low 4.3-5.9 [facility] Comment on above: Performed By: #### 2 [id number] ####[address] [address] RBC size Nom (Bld) NORMAL Invalid Interpretation Code [facility] Comment on above: Performed By: #### 2 [id number] ####[address] [address] WBC corrected for nucl RBC Auto (Bld) [#/Vol] 11.2 E9/L High 4.0-11.0 [facility] Comment on above: Performed By: #### 2 [id number] ####[facility] [address] [place] [address] HEMATOLOGYOrdered By: SYSTEM SYSTEM on 11-09-2024 Erythrocyte distribution width (RBC) [Ratio] 16.0 % High 10.9 - 14.2 % Remisol Heme Hematocrit (Bld) [Volume fraction] 28.4 % Low 34.0 - 46.0 % Remisol Heme Hemoglobin (Bld) [Mass/Vol] 9.9 g/dL Low 12.0 - 16.0 gm/dL Remisol Heme MCH (RBC) [Entitic mass] 33.3 pg Normal 27.0 - 34.0 pg Remisol Heme MCHC (RBC) [Mass/Vol] 34.8 g/dL Normal 31.4 - 36.0 gm/dL Remisol Heme MCV (RBC) [Entitic vol] 95.8 fL Normal 80.0 - 100.0 fL Remisol Heme Platelet mean volume (Bld) [Entitic vol] 9.0 fL Normal 6.4 - 10.8 fL Remisol Heme Platelets (Bld) [#/Vol] 154.0 E9/L Normal 150.0 - 500.0 E9/L Remisol Heme RBC (Bld) [#/Vol] 3.0 E12/L Low 4.3 - 5.9 E12/L Remisol Heme RBC size Nom (Bld) NORMAL *NA* (11/09/24 5:49 AM) Invalid Interpretation Code [facility] Heme WBC corrected for nucl RBC Auto (Bld) [#/Vol] 11.2 E9/L High 4.0 - 11.0 E9/L Remisol Heme Inpatient Clinical Summaryon 11-09-2024 Inpatient Clinical Summary Inpatient Clinical Summary [place] [id number] Clinical Summary Person Information Name: JENNIFER SMITH/[facility] Age: 24 Years : 2000 Sex: Female PCP: NONE, XXXX Marital Status: Race: White Ethnicity: Non- or Language: Mosotho MRN: [id number] Visit Id: Visit Reason: INDUCTION Speciality: Acuity: 1 PP Enc Type: Inpatient Med Service: Obstetrics Arrival: 11/08/2024 05:16:52 Discharge: 11/09/2024 17:45:00 Dispo Type: Home (Routine DC) Address: [address] [place] [id number] Provider Notes: Diagnosis: Problems No Problems Documented Smoking Status: Never Smoker Functional Status: Sensory Deficits: History of Falls: Mobility Assistance Prior to Admission: Independent ADLs: Independent Current Level of Assistance for Self-Care/Mobility: Cognitive Status: Allergies No Known Medication Allergies Laboratory or Other Results This Visit (last charted value for your 11/08/2024 visit) Hematology 11/09/2024 5:49 AM RBC Morph: NORMAL Hct: 28.4 % -- Normal range between ( 34.0 and 46.0 ) HGB: 9.9 gm/dL -- Normal range between ( 12.0 and 16.0 ) RBC: 3.0 E12/L -- Normal range between ( 4.3 and 5.9 ) RDW: 16.0 % -- Normal range between ( 10.9 and 14.2 ) MCH: 33.3 pg -- Normal range between ( 27.0 and 34.0 ) MCHC: 34.8 gm/dL -- Normal range between ( 31.4 and 36.0 ) MCV: 95.8 fL -- Normal range between ( 80.0 and 100.0 ) MPV: 9.0 fL -- Normal range between ( 6.4 and 10.8 ) Platelet: 154.0 E9/L -- Normal range between ( 150.0 and 500.0 ) WBC: 11.2 E9/L -- Normal range between ( 4.0 and 11.0 ) 11/08/2024 5:56 AM Basophil Auto: 0.6 % -- Normal range between ( 0.0 and 2.0 ) Eos Auto: 0.5 % -- Normal range between ( 0.0 and 8.0 ) Lymph Auto: 23.1 % -- Normal range between ( 14.0 and 50.0 ) [place]ac Auto: 4.8 % -- Normal range between ( 4.0 and 14.0 ) Neutro Auto: 71.0 % -- Normal range between ( 36.0 and 75.0 ) [place] Absolute: 0.5 E9/L -- Normal range between ( 0.2 and 1.0 ) Eos Absolute: 0.0 E9/L -- Normal range between ( 0.0 and 0.5 ) Basophil Absolute: 0.1 E9/L -- Normal range between ( 0.0 and 0.2 ) Neutro Absolute: 6.9 E9/L -- Normal range between ( 2.0 and 7.5 ) Lymph Absolute: 2.3 E9/L -- Normal range between ( 1.0 and 4.0 ) Urinalysis 11/08/2024 11:03 AM UA Bili: Negative mg/dL UA Color: Light-Yellow UA Glucose: Trace mg/dL UA Ketones: Negative mg/dL UA Leuk Est: Negative Kathe/uL UA Mucous: Negative graded/LPF UA Nitrite: Negative mg/dL UA Protein: Negative mg/dL UA RBC: 0-3 graded/HPF UA Squam Epithelial: 0-2 graded/HPF UA Urobilinogen: Negative mg/dL UA WBC: 0-5 graded/HPF UA Spec Desc: Bowen UA Blood: Negative mg/dL UA Clarity: Turbid UA pH: 7.0 -- Normal range between ( 5.0 and 9.0 ) UA Spec Grav: 1.011 -- Normal range between ( 1.005 and 1.030 ) 11/08/2024 5:31 AM UA Bacteria: Trace /HPF Chemistry 11/08/2024 5:31 AM U Benzodia Scr: NEGATIVE U Cocaine Scr: NEGATIVE U Opiate Scr: NEGATIVE U PCP Scr: NEGATIVE U Cannab Scr: NEGATIVE U Amph Scr: NEGATIVE U Mee Scr: NEGATIVE U Suboxone Scr: NEGATIVE U Fentanyl: NEGATIVE Blood Bank 11/08/2024 5:56 AM ABO/Rh Retype Interp: A POS 11/08/2024 5:55 AM ABO/Rh: A POS ABSC Gel Interp: Negative Measurements: Height: 165.10 cm Weight: 90.2 kg Blood Pressure: 114 mmHg / 71 mmHg BMI: 33.09 kg/m2 Procedures VUR - Vesicoureteric reflux (2005) Immunizations No Immunizations Documented This Visit Final Med List: ferrous sulfate 325 Milligram By Mouth every day. multivitamin, ( Multivitamins) 1 Tablets By Mouth every day. Care Team Members: Attending Physician: Jerson REED DO Consulting Physician: Referring Physician: Follow up: With: Address: When: [facility], [address] [place] [address] [place] [address] [facility] (1) Within 6 weeks Comments: Call Dr if fever>100.5 F, heavy bleeding Call for severe abdominal pain Call physician for heavy vaginal bleeding Nothing in the vagina for 6 weeks Support Group first Wednesday the Call today to schedule your follow up Patient Education Information: Normal [facility] Inpatient Patient Summaryon 11-09-2024 Inpatient Patient Summary Inpatient Patient Summary [address] [address] Patient Discharge Instructions PERSON INFORMATION Name: JENNIFER SMITH Date of : 2000 Current Date: 11/09/2024 18:14:40 PHYSICIANS Admitting Physician: Jerson REED DO Primary Care Physician: NONE, XXXX PCP Phone Number: Comment: Discharge Diagnosis: Condition at Discharge: Stable JOHNSTEVEJENNIFER SMITH has been given the following list of follow-up instructions, prescriptions, and patient education materials: PATIENT FOLLOW-UP INFORMATION Diet: Renal Activity: Ambulate as tolerated, Activity as tolerated Wound Care Instructions: Remove Your Dressing IN: Days Call Your Doctor For: Persistent or heavy bleeding, Temperature above 101.5 degrees IF UNABLE TO CONTACT YOUR PHYSICIAN AND YOU FEEL IT IS AN EMERGENCY, GO TO THE NEAREST EMERGENCY ROOM OR CALL 911 Home Treatment: Devices/Equipment: Special Services: Additional Instructions: Physician to provide the following pending test results: None Follow up: With: Address: When: Jerson HANSONFormerly [facility], [address] [place] [address] [place] [address] Business (1) Within 6 weeks Comments: Call Dr if fever>100.5 F, heavy bleeding Call for severe abdominal pain Call physician for heavy vaginal bleeding Nothing in the vagina for 6 weeks Support Group first Wednesday of the Call today to schedule your follow up In the event that this physician does not participate in your insurance network, please consult with your insurance company to find a nearby participating provider. Comment: AMAURY Kapadia MACKENZIE, have received the attached patient education materials/instructions and have verbalized understanding. Patient Signature Date Clinican/Nurse Signature Date MEDICATION LIST Medications to Continue with No Changes Other Medications ferrous sulfate 325 Milligram By Mouth every day. Last Dose: _Next Dose: _ multivitamin, ( Multivitamins) 1 Tablets By Mouth every day. Last Dose: _Next Dose: _ PATIENT EDUCATION INFORMATION Instructions: Medication Leaflets: You may receive a survey from [employer] asking you to rate your care experience. Your feedback is important and will help us understand what we do well and how we can improve the quality of care we provide to you, your loved ones and our community. It???s an honor to serve you. Patient Portal You may access all of your results and other medical record information on our secure patient portal. If you are not signed up for this yet, please contact [employer] at [phone] to get signed up today. JUDITH Award Nomination The JUDITH (Diseases Attacking the Immune SYstem) Award is an international recognition program that honors and celebrates the skillful, compassionate care nurses provide every day. Anyone who experiences or observes amazing care being provided by a nurse is encouraged to submit a nomination. To nominate your nurse, use your smart phone to scan the QR code below. Thank you for choosing [facility] Normal [facility] ABO/Rhon 11-08-2024 ABO/Rh Positive Invalid Interpretation Code [facility] Comment on above: Performed By: #### 2 [id number] #### [facility] [address] [place] [address] ABO/Rh History Checkon 11-08 ABO/Rh History Check Type verified by se cond s Normal [facility] Comment on above: Performed By: #### 1 [id number] #### [facility] [address] [place] [address] ABO/Rh Retypeon 11-08-2024 ABO/Rh Retype Interp Positive Invalid Interpretation Code [facility] Comment on above: Performed By: #### 1 [id number] #### [facility] [address] [place] [address] ABSCon 11-08-2024 ABSC Gel Interp Negative Normal [facility] Comment on above: Performed By: #### 1 [id number] #### [facility] [address] [place] [address] BLOOD BANKOrdered By: Boris Downs on 11-08-2024 ABO/Rh Retype Interp Positive Invalid Interpretation Code [facility] BB Subsection ABO/Rh Interp Positive Invalid Interpretation Code [facility] BB Subsection ABSC Gel Interp Negative (11/08/24 5:55 AM) Normal [facility] BB Subsection Blood Bank ID#on 11-08-2024 BBID# [id number] Invalid Interpretation Code [facility] Comment on above: Performed By: #### 1 [id number] #### [facility] [address] [place] [address] Buprenorphine Scr Uron 11-08 Buprenorphine Ql (U) Negative Normal NEGATIVE Fish er [facility] Comment on above: Result Comment: Nega tive Cutoff: <5 ng/mL These drug screen results are to be used for medical (i.e., treatment) purposes only. Unconfirmed drug screening results must not be used for non-medical purposes (e.g., employment testing, legal testing). Performed By: #### 7 [id number] #### [facility] [address] [place] [address] CBC w/ Auto Diffon 5 Basophils/100 WBC (Bld) 0.6 % Normal 0.0-2.0 [facility] Comment on above: Performed By: #### 2 [id number] #### [facility] [address] [place] [address] Basophils/Leukocytes Auto (Bld) [Pure # fraction] 0.1 E9/L Normal 0.0-0.2 [facility] Comment on above: Performed By: #### 2 [id number] #### [facility] [address] [place] [address] Eosinophils (Bld) [#/Vol] 0.0 E9/L Normal 0.0-0.5 [facility] Comment on above: Performed By: #### 2 [id number] #### [facility] [address] [place] [address] Eosinophils/100 WBC (Bld) 0.5 % Normal 0.0-8.0 [facility] Comment on above: Performed By: #### 2 [id number] #### [facility] [address] [place] [address] Erythrocyte distribution width (RBC) [Ratio] 16.2 % High 10.9-14.2 [facility] Comment on above: Performed By: #### 2 [id number] #### [facility] [address] [place] [address] Hematocrit (Bld) [Volume fraction] 35.0 % Normal 34.0-46.0 [facility] Comment on above: Performed By: #### 2 [id number] #### [facility] [address] [place] [address] Hemoglobin (Bld) [Mass/Vol] 12.1 g/dL Normal 12.0-16.0 [facility] Comment on above: Performed By: #### 2 [id number] #### [facility] [address] [place] [address] Lymphocytes (Bld) [#/Vol] 2.3 E9/L Normal 1.0-4.0 [facility] Comment on above: Performed By: #### 2 [id number] #### [facility] [address] [place] [address] Lymphocytes/100 WBC (Bld) 23.1 % Normal 14.0-50.0 [facility] Comment on above: Performed By: #### 2 [id number] #### [facility] [address] [place] [address] MCH (RBC) [Entitic mass] 32.7 pg Normal 27.0-34.0 [facility] Comment on above: Performed By: #### 2 [id number] #### [facility] [address] [place] [address] MCHC (RBC) [Mass/Vol] 34.7 g/dL Normal 31.4-36.0 [facility] Comment on above: Performed By: #### 2 [id number] #### [facility] [address] [place] [address] MCV (RBC) [Entitic vol] 94.1 fL Normal 80.0-100.0 [facility] Comment on above: Performed By: #### 2 [id number] #### [facility] [address] [place] [address] Monocytes (Bld) [#/Vol] 0.5 E9/L Normal 0.2-1.0 [facility] Comment on above: Performed By: #### 2 [id number] #### [facility] [address] [place] [address] Neutrophils (Bld) [#/Vol] 6.9 E9/L Normal 2.0-7.5 [facility] Comment on above: Performed By: #### 2 [id number] #### [facility] [address] [place] [address] Neutrophils/100 WBC (Bld) 71.0 % Normal 36.0-75.0 [facility] Comment on above: Performed By: #### 2 [id number] #### [facility] [address] [place] [address] Platelet 195.0 E9/L Normal 150.0-500.0 [facility] Comment on above: Performed By: #### 2 [id number] #### [facility] [address] [place] [address] Platelet mean volume (Bld) [Entitic vol] 9.0 fL Normal 6.4-10.8 [facility] Comment on above: Performed By: #### 2 [id number] #### [facility] [address] [place] [address] RBC (Bld) [#/Vol] 3.7 E12/L Low 4.3-5.9 [facility] Comment on above: Performed By: #### 2 [id number] #### [facility] [address] [place] [address] WBC corrected for nucl RBC Auto (Bld) [#/Vol] 9.8 E9/L Normal 4.0-11.0 [facility] Comment on above: Performed By: #### 2 [id number] #### [facility] [address] [place] [address] CHEMISTRYOrdered By: SYSTEM SYSTEM on 11-08-2024 Amphetamines Screen method >1000 ng/mL Ql (U) NEGATIVE 8 (11/08/24 5:31 AM) Normal NEGATIVE [facility] Comment on above: Interpretive Data: N egative Cutoff: <1000 ng/mL Barbiturates Screen Ql (U) NEGATIVE 9 (11/08/24 5:31 AM) Normal NEGATIVE [facility] Comment on above: Interpretive Data: N egative Cutoff: <200 ng/mL Benzodiazepines Ql (U) NEGATIVE 1 (11/08/24 5:31 AM) Normal NEGATIVE [facility] Comment on above: Interpretive Data: N egative Cutoff: <200 ng/mL Buprenorphine Ql (U) NEGATIVE 11 (11/08/24 5:31 AM) Normal NEGATIVE [facility] Comment on above: Interpretive Data: N egative Cutoff: <5 ng/mL These drug screen results are to be used for medical (i.e., treatment) purposes only. Unconfirmed drug screening results must not be used for non-medical purposes (e.g., employment testing, legal testing). Cannabinoids Screen Ql (U) NEGATIVE 7 (11/08/24 5:31 AM) Normal NEGATIVE [facility] Comment on above: Interpretive Data: N egative Cutoff: <50 ng/mL Cocaine Ql (U) NEGATIVE 2 (11/08/24 5:31 AM) Normal NEGATIVE [facility] Comment on above: Interpretive Data: N egative Cutoff: <300 ng/mL Opiates Screen Ql (U) NEGATIVE 5 (11/08/24 5:31 AM) Normal NEGATIVE [facility] Comment on above: Interpretive Data: N egative Cutoff: <300 ng/mL Phencyclidine Screen method >25 ng/mL Ql (U) NEGATIVE 6 (11/08/24 5:31 AM) Normal NEGATIVE [facility] Comment on above: Interpretive Data: N egative Cutoff: <25 ng/mL These drug screen results are to be used for medical (i.e., treatment) purposes only. Unconfirmed drug screening results must not be used for non-medical purposes (e.g., employment testing, legal testing). U Fentanyl NEGATIVE 10 (11/08/24 5:31 AM) Normal NEGATIVE [facility] Comment on above: Interpretive Data: N egative Cutoff: <5 ng/mL These drug screen results are to be used for medical (i.e., treatment) purposes only. Unconfirmed drug screening results must not be used for non-medical purposes (e.g., employment testing, legal testing). HEMATOLOGYOrdered By: SYSTEM SYSTEM on 11-08-2024 Basophils/100 WBC (Bld) 0.6 % Normal 0.0 - 2.0 % [facility] Basophils/Leukocytes Auto (Bld) [Pure # fraction] 0.1 E9/L Normal 0.0 - 0.2 E9/L [facility] Eosinophils (Bld) [#/Vol] 0.0 E9/L Normal 0.0 - 0.5 E9/L [facility] Eosinophils/100 WBC (Bld) 0.5 % Normal 0.0 - 8.0 % [facility] Erythrocyte distribution width (RBC) [Ratio] 16.2 % High 10.9 - 14.2 % [facility] Hematocrit (Bld) [Volume fraction] 35.0 % Normal 34.0 - 46.0 % [facility] Hemoglobin (Bld) [Mass/Vol] 12.1 g/dL Normal 12.0 - 16.0 gm/dL [facility] Lymphocytes (Bld) [#/Vol] 2.3 E9/L Normal 1.0 - 4.0 E9/L [facility] Lymphocytes/100 WBC (Bld) 23.1 % Normal 14.0 - 50.0 % [facility] MCH (RBC) [Entitic mass] 32.7 pg Normal 27.0 - 34.0 pg [facility] MCHC (RBC) [Mass/Vol] 34.7 g/dL Normal 31.4 - 36.0 gm/dL [facility] MCV (RBC) [Entitic vol] 94.1 fL Normal 80.0 - 100.0 fL [facility] Monocytes (Bld) [#/Vol] 0.5 E9/L Normal 0.2 - 1.0 E9/L [facility] Monocytes/100 WBC (Bld) 4.8 % Normal 4.0 - 14.0 % [facility] Neutrophils (Bld) [#/Vol] 6.9 E9/L Normal 2.0 - 7.5 E9/L [facility] Neutrophils/100 WBC (Bld) 71.0 % Normal 36.0 - 75.0 % [facility] Platelet 195.0 E9/L Normal 150.0 - 500.0 E9/L [facility] Platelet mean volume (Bld) [Entitic vol] 9.0 fL Normal 6.4 - 10.8 fL [facility] RBC (Bld) [#/Vol] 3.7 E12/L Low 4.3 - 5.9 E12/L [facility] WBC corrected for nucl RBC Auto (Bld) [#/Vol] 9.8 E9/L Normal 4.0 - 11.0 E9/L [facility] U Drug Screenon 11-08-2024 Amphetamines Screen method >1000 ng/mL Ql (U) Negative Normal NEGATIVE [facility] Comment on above: Order Comment: Obtai n if drug screen not available Result Comment: Nega tive Cutoff: <1000 ng/mL Performed By: #### 2 [id number] #### [facility] [address] [place] [address] Barbiturates Screen Ql (U) Negative Normal NEGATIVE [facility] Comment on above: Order Comment: Obtai n if drug screen not available Result Comment: Nega tive Cutoff: <200 ng/mL Performed By: #### 2 [id number] #### [facility] [address] [place] [address] Benzodiazepines Ql (U) Negative Normal NEGATIVE [facility] Comment on above: Order Comment: Obtai n if drug screen not available Result Comment: Nega tive Cutoff: <200 ng/mL Performed By: #### 2 [id number] #### [facility] [address] [place] [address] Cannabinoids Screen Ql (U) Negative Normal NEGATIVE [facility] Comment on above: Order Comment: Obtai n if drug screen not available Result Comment: Nega tive Cutoff: <50 ng/mL Performed By: #### 2 [id number] #### [facility] [address] [place] [address] Cocaine Ql (U) Negative Normal NEGATIVE [facility] Comment on above: Order Comment: Obtai n if drug screen not available Result Comment: Nega tive Cutoff: <300 ng/mL Performed By: #### 2 [id number] #### [facility] [address] [place] [address] Opiates Screen Ql (U) Negative Normal NEGATIVE [facility] Comment on above: Order Comment: Obtai n if drug screen not available Result Comment: Nega tive Cutoff: <300 ng/mL Performed By: #### 2 [id number] #### [facility] [address] [place] [address] Phencyclidine Screen method >25 ng/mL Ql (U) Negative Normal NEGATIVE [facility] Comment on above: Order Comment: Obtai n if drug screen not available Result Comment: Nega tive Cutoff: <25 ng/mL These drug screen results are to be used for medical (i.e., treatment) purposes only. Unconfirmed drug screening results must not be used for non-medical purposes (e.g., employment testing, legal testing). Performed By: #### 2 [id number] #### [facility] [address] [place] [address] U Fentanyl Negative Normal NEGATIVE [facility] Comment on above: Order Comment: Obtai n if drug screen not available Result Comment: Nega tive Cutoff: <5 ng/mL These drug screen results are to be used for medical (i.e., treatment) purposes only. Unconfirmed drug screening results must not be used for non-medical purposes (e.g., employment testing, legal testing). Performed By: #### 2 [id number] #### [facility] [address] [place] [address] UA with Cult Rflxon 11-08-19 25 Bacteria Auto Ql (U) Trace Normal Trace [facility] Comment on above: Performed By: #### 4 [id number] #### [facility] [address] [place] [address] Bilirubin Ql (U) Negative Normal Negative [facility] Comment on above: Performed By: #### 4 [id number] #### [facility] [address] [place] [address] Clarity (U) Clear Normal Clear [facility] Comment on above: Performed By: #### 4 [id number] #### [facility] [address] [place] [address] Color (U) Light-Yellow Normal Yellow [facility] Comment on above: Result Comment: Micr oscopic readings are only performed on those samples that meet specific criteria set forth by [facility]. Performed By: #### 4 [id number] #### [facility] [address] [place] [address] Epithelial cells.squamous Auto (Urine sed) [#/Area] 0-2 Invalid Interpretation Code [facility] Comment on above: Performed By: #### 4 [id number] #### [facility] [address] [place] [address] Glucose Ql (U) Negative Normal Negative [facility] Comment on above: Performed By: #### 4 [id number] #### [facility] [address] [place] [address] Hemoglobin Auto test strip (U) [Mass/Vol] Negative Normal Negative [facility] Comment on above: Performed By: #### 4 [id number] #### [facility] [address] [place] [address] Ketones Auto test strip Ql (U) Negative Normal Negative [facility] Comment on above: Performed By: #### 4 [id number] #### [facility] [address] [place] [address] Leukocyte esterase Auto test strip Ql (U) 25 Kathe/uL Normal Negative [facility] Comment on above: Performed By: #### 4 [id number] #### [facility] [address] [place] [address] Mucus Auto Ql (U) Trace Normal Negative [facility] Comment on above: Performed By: #### 4 [id number] #### [facility] [address] [place] [address] Nitrite Auto test strip Ql (U) Negative Normal Negative [facility] Comment on above: Performed By: #### 4 [id number] #### [facility] [address] [place] [address] pH (U) 7.0 [pH] Invalid Interpretation Code 5.0-9.0 [facility] Comment on above: Performed By: #### 4 [id number] #### [facility] [address] [place] [address] Protein Ql (U) Negative Normal Negative [facility] Comment on above: Performed By: #### 4 [id number] #### [facility] [address] [place] [address] Specific gravity (U) [Rel density] 1.015 Invalid Interpretation Code 1.005-1.030 [facility] Comment on above: Performed By: #### 4 [id number] #### [facility] [address] [place] [address] Urobilinogen (U) [Mass/Vol] Negative Normal Negative [facility] Comment on above: Performed By: #### 4 [id number] #### [facility] [address] [place] [address] WBC Auto (Urine sed) [#/Area] 0-5 Normal 0-5 [facility] Comment on above: Performed By: #### 4 [id number] #### [facility] [address] [place] [address] Type of Urine collection method Clean Catch Normal [facility] Comment on above: Performed By: #### 4 [id number] #### [facility] [address] [place] [address] URINALYSISOrdered By: SYSTEM SYSTEM on 11-08-2024 Bilirubin Ql (U) Negative Normal Negativemg/dL [facility] UA Auto SS Clarity (U) Turbid *ABN* (11/08/24 11:03 AM) Invalid Interpretation Code Clear [facility] UA Auto SS Color (U) Light-Yellow 3 (11/08/24 11:03 AM) Normal Yellow [facility]A Auto SS Comment on above: Interpretive Data: M icroscopic readings are only performed on those samples that meet specific criteria set forth by [facility]. Epithelial cells.squamous Auto (Urine sed) [#/Area] 0-2 graded/HPF Invalid Interpretation Code [facility] UA Auto SS Glucose Ql (U) Trace mg/dL Invalid Interpretation Code Negativemg/dL [facility] UA Auto SS Hemoglobin Auto test strip (U) [Mass/Vol] Negative Normal Negativemg/dL [facility] UA Aut o SS Ketones Auto test strip Ql (U) Negative Normal Negativemg/dL [facility] UA Auto SS Leukocyte esterase Auto test strip Ql (U) Negative Normal NegativeLeu/u L [facility] UA Auto SS Mucus Auto Ql (U) Negative Normal Negativegr kathy d/LPF [facility] UA Auto SS Nitrite Auto test strip Ql (U) Negative Normal Negativemg/dL [facility] UA Auto SS pH (U) 7.0 *NA* (11/08/24 11:03 AM) Invalid Interpretation Code 5.0 - 9.0 [facility] UA Auto SS Protein Ql (U) Negative Normal Negativemg/dL [facility] UA Auto SS RBC Ql (U) 0-3 graded/HPF Normal 0-3graded/HPF [facility] UA Auto SS Specific gravity (U) [Rel density] 1.011 *NA* (11/08/24 11:03 AM) Invalid Interpretation Code 1.005 - 1.030 [facility] UA Auto SS Urobilinogen (U) [Mass/Vol] Negative Normal Negativemg/dL [facility] UA Auto SS WBC Auto (Urine sed) [#/Area] 0-5 graded/HPF Normal 0-5graded/HPF [facility] UA Auto SS Bacteria Auto Ql (U) Trace /HPF Normal Trace/HPF [facility] UA Auto SS Bilirubin Ql (U) Negative Normal Negativemg/dL [facility] UA Auto SS Clarity (U) Clear (11/08/24 5:31 AM) Normal Clear [facility] UA Auto SS Color (U) Light-Yellow 4 (11/08/24 5:31 AM) Normal Yellow [facility] UA Auto SS Comment on above: Interpretive Data: M icroscopic readings are only performed on those samples that meet specific criteria set forth by [facility]. Epithelial cells.squamous Auto (Urine sed) [#/Area] 0-2 graded/HPF Invalid Interpretation Code [facility] UA Auto SS Glucose Ql (U) Negative Normal Negativemg/dL [facility] UA Auto SS Hemoglobin Auto test strip (U) [Mass/Vol] Negative Normal Negativemg/dL [facility] UA Aut o SS Ketones Auto test strip Ql (U) Negative Normal Negativemg/dL [facility] UA Auto SS Leukocyte esterase Auto test strip Ql (U) 25 Kathe/uL Kathe/uL Normal NegativeLeu/u L [facility] UA Auto SS Mucus Auto Ql (U) Trace graded/LPF Normal Negati vegrade d/LPF [facility] UA Auto SS Nitrite Auto test strip Ql (U) Negative Normal Negativemg/dL [facility] UA Auto SS pH (U) 7.0 *NA* (11/08/24 5:31 AM) Invalid Interpretation Code 5.0 - 9.0 [facility] UA Auto SS Protein Ql (U) Negative Normal Negativemg/dL [facility] UA Auto SS Specific gravity (U) [Rel density] 1.015 *NA* (11/08/24 5:31 AM) Invalid Interpretation Code 1.005 - 1.030 [facility] UA Auto SS Urobilinogen (U) [Mass/Vol] Negative Normal Negativemg/dL [facility] UA Auto SS WBC Auto (Urine sed) [#/Area] 0-5 graded/HPF Normal 0-5graded/HPF [facility] UA Auto SS URINALYSISOrdered By: Darcie Downs on 11-08-2024 UA Spec Desc Bowen (11/08/24 11:03 AM) Normal [facility] UA Auto SS URINALYSISOrdered By: Phoebe Diaz on 11-08-2024 UA Spec Desc Clean Catch (11/08/24 5:31 AM) Normal [facility] UA Auto SS US Biophysical Profile w/ Non-Stron 11-08-2024 US Biophysical Profile w/ Non-Str Exam Date/Time: 11/06/2024 11:06 EST Reason for Exam: Other (please specify) Report IMPRESSION: BIOPHYSICAL PROFILE SCORE OF 8 OUT OF 8. EXAM: US Biophysical Profile w/o N-Str CLINICAL HISTORY: Term . COMPARISON: None available. TECHNIQUE: Grayscale evaluation of the fetus was performed for biophysical profile purposes and does not constitute an anatomic survey. FINDINGS: The study is limited secondary to the advanced gravid uterus. There is a single intrauterine fetus in a cephalic position. cardiac activity is measured at 135 bpm. Amniotic fluid index measures approximately 12.14 cm measured in 3 quadrants. The largest pocket within the left lower quadrant millimeters through 4.3 cm Points were awarded for the following: *2 out of 2 for breathing *2 out of 2 for body movement *2 out of 2 for tone *2 out of 2 for JU No other findings of concern are identified, within the limits of the study. Ordering Provider: Jerson REED FINAL REPORT Dictated: 11/08/2024 1:50 pm González Hyde MD Signed (Electronic Signature): 11/08/2024 1:50 pm Signed by: González Hyde MD Transcribed by: MATT Technologist: ELISE Technical Comments Biophysical Profile Movement Tone Breathing Technical Comments Fluid Volume Total Score out of 8 8 Normal [facility] Inpatient Clinical Summaryon 11-06-2024 Inpatient Clinical Summary Inpatient Clinical Summary [address] [address] Clinical Summary Person Information Name: JENNIFER SMITH/New_Franko Age: 24 Years : 2000 Sex: Female PCP: NONE, XXXX Marital Status: Race: White Ethnicity: Non- or Language: Mosotho Visit Id: Visit Reason: NST / US Speciality: Acuity: Obs Enc Type: Outpatient in a Bed Med Service: Obstetrics Arrival: 11/06/2024 10:05:10 Discharge: 11/06/2024 11:05:00 Dispo Type: Home (Routine DC) Address: [address] [place] [phone] Provider Notes: Diagnosis: Problems No Problems Documented Smoking Status: Never Smoker Functional Status: Sensory Deficits: History of Falls: Mobility Assistance Prior to Admission: ADLs: Current Level of Assistance for Self-Care/Mobility: Cognitive Status: Allergies No Known Medication Allergies Laboratory or Other Results This Visit (last charted value for your 11/06/2024 visit) No Laboratory or Other Results This Visit Measurements: Height: 165 cm Weight: 90 kg Blood Pressure: Not Valued / Not Valued BMI: 33.06 kg/m2 Procedures No Procedures Documented Immunizations No Immunizations Documented This Visit Final Med List: ferrous sulfate 325 Milligram By Mouth every day. multivitamin, ( Multivitamins) 1 Tablets By Mouth every day. Care Team Members: Attending Physician: Jerson REED DO Consulting Physician: Referring Physician: Follow up: With: Address: When: arash garcia In 2 days 11/08/2024 Comments: Induction at 0500 Patient Education Information: Signs and Symptoms of Labor Normal [facility] Inpatient Patient Summaryon 11-06-2024 Inpatient Patient Summary Inpatient Patient Summary [address] [address] Patient Discharge Instructions PERSON INFORMATION Name: JENNIFER SMITH Date of : 2000 Current Date: 11/06/2024 11:09:08 PHYSICIANS Admitting Physician: Jerson REED DO Primary Care Physician: ELEANOR, XXXX PCP Phone Number: Comment: Discharge Diagnosis: Condition at Discharge: JENNIFER SMITH has been given the following list of follow-up instructions, prescriptions, and patient education materials: PATIENT FOLLOW-UP INFORMATION Diet: Activity: Wound Care Instructions: Remove Your Dressing IN: Days Call Your Doctor For: IF UNABLE TO CONTACT YOUR PHYSICIAN AND YOU FEEL IT IS AN EMERGENCY, GO TO THE NEAREST EMERGENCY ROOM OR CALL 911 Home Treatment: Devices/Equipment: Special Services: Additional Instructions: Physician to provide the following pending test results: Follow up: With: Address: When: arash garcia In 2 days 11/08/2024 Comments: Induction at 0500 In the event that this physician does not participate in your insurance network, please consult with your insurance company to find a nearby participating provider. Comment: I, JENNIFER SMITH, have received the attached patient education materials/instructions and have verbalized understanding. Patient Signature Date Clinican/Nurse Signature Date MEDICATION LIST Medications to Continue with No Changes Other Medications ferrous sulfate 325 Milligram By Mouth every day. Last Dose: _Next Dose: _ multivitamin, ( Multivitamins) 1 Tablets By Mouth every day. Last Dose: _Next Dose: _ PATIENT EDUCATION INFORMATION Instructions: Signs and Symptoms of Labor Labor is the body's natural process of moving the baby and the placenta out of the uterus. The process of labor usually starts when the baby is full-term, between 39 and 41 weeks of . Signs and symptoms that you are close to going into labor As your body prepares for labor and the of your baby, you may notice the following symptoms in the weeks and days before true labor starts: ??? Passing a small amount of thick, bloody mucus from your vagina. This is called normal bloody show or losing your mucus plug. This may happen more than a week before labor begins, or right before labor begins, as the opening of the cervix starts to widen (dilate). For some women, the entire mucus plug passes at once. For others, pieces of the mucus plug may gradually pass over several days. ??? Your baby moving (dropping) lower in your pelvis to get into position for (lightening). When this happens, you may feel more pressure on your bladder and pelvic bone and less pressure on your ribs. This may make it easier to breathe. It may also cause you to need to urinate more often and have problems with bowel movements. ??? Having practice contractions, also called Joaquín Marrero contractions or false labor. These occur at irregular (unevenly spaced) intervals that are more than 10 minutes apart. False labor contractions are common after exercise or sexual activity. They will stop if you change position, rest, or drink fluids. These contractions are usually mild and do not get stronger over time. They may feel like: ? A backache or back pain. ? Mild cramps, similar to menstrual cramps. ? Tightening or pressure in your abdomen. Other early symptoms include: ??? Nausea or loss of appetite. ??? Diarrhea. ??? Having a sudden burst of energy, or feeling very tired. ??? Mood changes. ??? Having trouble sleeping. Signs and symptoms that labor has begun Signs that you are in labor may include: ??? Having contractions that come at regular (evenly spaced) intervals and increase in intensity. This may feel like more intense tightening or pressure in your abdomen that moves to your back. ? Contractions may also feel like rhythmic pain in your upper thighs or back that comes and goes at regular intervals. ? If you are delivering for the first time, this change in intensity of contractions often occurs at a more gradual pace. ? If you have given before, you may notice a more rapid progression of contraction changes. ??? Feeling pressure in the vaginal area. ??? Your water breaking (rupture of membranes). This is when the sac of fluid that surrounds your baby breaks. Fluid leaking from your vagina may be clear or blood-tinged. Labor usually starts within 24 hours of your water breaking, but it may take longer to begin. ? Some people may feel a sudden gush of fluid; others may notice repeatedly damp underwear. Follow these instructions at home: (Inserted Image. Unable to (more content not included)... Normal [facility] Urinalysis macro (dipstick) panel (U)on 11-06-2024 Bilirubin, UA Negative Negative - 4(70) +++ mg/dL [facility] Blood, UA Negative Negative - 50 Shaun/mcL [facility] Clarity, UA Clear [facility] Color, UA Yellow [facility] Glucose, UA Negative Negative - 1999(110) ++++ mg/dL [facility] Interpretation and review of laboratory results Abnormal [facility] Ketones, UA Negative Negative - 160(16) ++++ mg/dL [facility] Leukocytes, UA Negative Negative - 500+++ Kathe/mcL [facility] Nitrite, UA Negative Negative - Positive [facility] pH, UA 6 5 - 9 [facility] Protein, UA Negative Negative - 1999(20) ++++ mg/dL [facility] Spec Grav, UA 1.02 1 - 1.03 [facility] Urobilinogen, UA 0.2 0.2 - 12 mg/dL [facility] Urinalysis macro (dipstick) panel (U)on 10-30-2024 Bilirubin, UA Negative Negative - 4(70) +++ [...] [facility] Ketones, UA Negative Negative - 160(16) ++++ mg/dL [facility] Leukocytes, UA Positive Negative - 500+++ Kathe/mcL [facility] Comment on above: small Nitrite, UA Negative Negative - Positive [facility] pH, UA 7 5 - 9 [facility] Protein, UA Trace Negative - 2000(20) ++++ mg/dL [facility] Spec Grav, UA 1.02 1 - 1.03 [facility] Urobilinogen, UA 0.2 0.2 - 12 mg/dL [facility] Urinalysis macro (dipstick) panel (U)on 10-19-2024 Bilirubin, UA Negative Negative - 4(70) +++ [...] [facility] Comment on above: 40 Leukocytes, UA Positive Negative - 500+++ Kathe/mcL [facility] Comment on above: small Nitrite, UA Negative Negative - Positive [facility] pH, UA 6.5 5 - 9 [facility] Protein, UA Positive Negative - 2000(20) ++++ mg/dL [facility] Comment on above: 30 Spec Grav, UA 1.025 1 - 1.03 [facility] Urobilinogen, UA 0.2 0.2 - 12 mg/dL [facility] ALL MISCELLANEOUS TESTon MISCELLANEOUS TEST COMMENT . [facility] Comment on above: Test Ordered: [id number] Strep Gp B Culture+Rflx Strep Gp B Culture+Rflx Negative CB Reference Range: Negative Centers for Disease Control and Prevention (CDC) and [place] [employer] (ACOG) guidelines for prevention of group B streptococcal (GBS) disease specify co-collection of a vaginal and rectal swab specimen to maximize sensitivity of GBS detection. Per the CDC and ACOG, swabbing both the lower vagina and rectum substantially increases the yield of detection compared with sampling the vagina alone. Penicillin G, ampicillin, or cefazolin are indicated for intrapartum prophylaxis of GBS colonization. Reflex susceptibility testing should be performed prior to use of clindamycin only on GBS isolates from penicillin- allergic women who are considered a high risk for anaphylaxis. Treatment with vancomycin without additional testing is warranted if resistance to clindamycin is noted. Performed at: - [facility] [id number] [employer] Professor: Abdulaziz Steele PhD, Phone: [phone] [id number] Group B Streptococcus Colonization Detection Culture [facility]stick) panel (U)on 10-11-2024 Bilirubin, UA Negative Negative - 4(70) +++ mg/dL [facility] Blood, UA Negative Negative - 50 Shaun/mcL [facility] Clarity, UA Clear [facility] Color, UA Elvira [facility] Glucose, UA Negative Negative - 2000(110) ++++ mg/dL [facility] Interpretation and review of laboratory results Abnormal [facility] Ketones, UA Positive Negative - 160(16) ++++ mg/dL [facility] Comment on above: 40 Leukocytes, UA Negative Negative - 500+++ Kathe/mcL [facility] Nitrite, UA Negative Negative - Positive [facility] pH, UA 6 5 - 9 [facility] Protein, UA Positive Negative - 2000(20) ++++ mg/dL [facility] Comment on above: 30 Spec Grav, UA 1.03 1 - 1.03 [facility] Urobilinogen, UA 0.2 0.2 - 12 mg/dL [facility] ALL CBC WITH AUTO DIFFon BASOPHILS ABSOLUTE AUTO 0 [facility] Basophils/100 WBC (Bld) 0.4 % 0.2 - 2.0 % [facility] Eosinophils/100 WBC (Bld) 0.5 % Low 0.9 - 7.0 % [facility] Erythrocyte distribution width (RBC) [Ratio] 15.9 % High 11.0 - 15.0 % [facility] Hematocrit (Bld) [Volume fraction] 32.3 % Low 36.0 - 48.0 % [facility] Hemoglobin (Bld) [Mass/Vol] 11 g/dL Low 12.0 - 16.0 g/dL [facility] IMMATURE GRANULOCYTES ABS AUTO 0.04 High [facility] Immature granulocytes/100 WBC (Bld) 0.5 % 0.0 - 0.5 % [facility] Interpretation and review of laboratory results Abnormal [facility] LYMPHOCYTES ABSOLUTE AUTO 1.8 [facility] Lymphocytes/100 WBC (Bld) 22.9 % 20.5 - 60.0 % [facility] MCH (RBC) [Entitic mass] 32.5 pg 26.7 - 34.0 pg [facility] MCHC (RBC) [Mass/Vol] 34.1 g/dL 29.9 - 35.2 g/dL [facility] MCV (RBC) [Entitic vol] 95.6 fL 81.0 - 99.0 fL [facility] MONOCYTES ABSOLUTE AUTO 0.5 [facility] Monocytes/100 WBC (Bld) 6.4 % 1.7 - 12.0 % [facility] NEUTROPHILS ABSOLUTE AUTO 5.3 [facility] Neutrophils/100 WBC (Bld) 69.3 % 43.0 - 75.0 % [facility] Platelet mean volume (Bld) [Entitic vol] 10.1 fL 9.5 - 13.5 fL [facility] TBH EO # 0 [facility] TB PLT 177 [facility] TB RBC 3.38 Low [facility] TB WBC 7.6 [facility] Urinalysis macro (dipstick) panel (U)on 09-27-2024 Bilirubin, UA Negative Negative - 4(70) +++ mg/dL [facility] Blood, UA Negative Negative - 50 Shaun/mcL [facility] Clarity, UA Clear [facility] Color, UA Yellow [facility] Glucose, UA Negative Negative - 1999(110) ++++ mg/dL [facility] Interpretation and review of laboratory results Normal [facility] Ketones, UA Negative Negative - 160(16) ++++ mg/dL [facility] Leukocytes, UA Negative Negative - 500+++ Kathe/mcL [facility] Nitrite, UA Negative Negative - Positive [facility] pH, UA 6.5 5 - 9 [facility] Protein, UA Negative Negative - 1999(20) ++++ mg/dL [facility] Spec Grav, UA 1.025 1 - 1.03 [facility] Urobilinogen, UA 1.0 0.2 - 12 mg/dL [facility] Urinalysis macro (dipstick) panel (U)on 09-14-2024 Bilirubin, UA Negative Negative - 4(70) +++ mg/dL [facility] Blood, UA Negative Negative - 50 Shaun/mcL [facility] Clarity, UA Clear [facility] Color, UA Yellow [facility] Glucose, UA Negative Negative - 1999(110) ++++ mg/dL [facility] Interpretation and review of laboratory results Abnormal [facility] Ketones, UA Negative Negative - 160(16) ++++ mg/dL [facility] Leukocytes, UA Negative Negative - 500+++ Kathe/mcL [facility] Nitrite, UA Negative Negative - Positive [facility] pH, UA 6 5 - 9 [facility] Protein, UA Negative Negative - 1999(20) ++++ mg/dL [facility] Spec Grav, UA 1.02 1 - 1.03 [facility] Urobilinogen, UA 0.2 0.2 - 12 mg/dL [facility] Urinalysis macro (dipstick) panel (U)on 08-31-2024 Bilirubin, UA Negative Negative - 4(70) +++ mg/dL [facility] Blood, UA Negative Negative - 50 Shaun/mcL [facility] Clarity, UA Clear [facility] Color, UA Yellow [facility] Glucose, UA Negative Negative - 1999(110) ++++ mg/dL [facility] Interpretation and review of laboratory results Normal [facility] Ketones, UA Negative Negative - 160(16) ++++ mg/dL [facility] Leukocytes, UA Negative Negative - 500+++ Kathe/mcL [facility] Nitrite, UA Negative Negative - Positive [facility] pH, UA 7 5 - 9 [facility] Protein, UA Negative Negative - 1999(20) ++++ mg/dL [facility] Spec Grav, UA 1.01 1 - 1.03 [facility] Urobilinogen, UA 0.2 0.2 - 12 mg/dL [facility] ALL CBC WITH AUTO DIFFon BASOPHILS ABSOLUTE AUTO 0 [facility] Basophils/100 WBC (Bld) 0.2 % 0.2 - 2.0 % [facility] Eosinophils/100 WBC (Bld) 0.6 % Low 0.9 - 7.0 % [facility] Erythrocyte distribution width (RBC) [Ratio] 13.8 % 11.0 - 15.0 % [facility] Hematocrit (Bld) [Volume fraction] 29.6 % Low 36.0 - 48.0 % [facility] Hemoglobin (Bld) [Mass/Vol] 9.9 g/dL Low 12.0 - 16.0 g/dL [facility] IMMATURE GRANULOCYTES ABS AUTO 0.04 High [facility] Immature granulocytes/100 WBC (Bld) 0.5 % 0.0 - 0.5 % [facility] Interpretation and review of laboratory results Abnormal [facility] LYMPHOCYTES ABSOLUTE AUTO 1.8 [facility] Lymphocytes/100 WBC (Bld) 21.8 % 20.5 - 60.0 % [facility] MCH (RBC) [Entitic mass] 31.7 pg 26.7 - 34.0 pg [facility] MCHC (RBC) [Mass/Vol] 33.4 g/dL 29.9 - 35.2 g/dL [facility] MCV (RBC) [Entitic vol] 94.9 fL 81.0 - 99.0 fL [facility] MONOCYTES ABSOLUTE AUTO 0.5 [facility] Monocytes/100 WBC (Bld) 6 % 1.7 - 12.0 % [facility] NEUTROPHILS ABSOLUTE AUTO 5.8 [facility] Neutrophils/100 WBC (Bld) 70.9 % 43.0 - 75.0 % [facility] Platelet mean volume (Bld) [Entitic vol] 9.6 fL 9.5 - 13.5 fL [facility] TBH EO # 0.1 [facility] TB PLT [facility] RBC 3.[address] [facility] WBC 8.1 [facility] Urinalysis macro (dipstick) panel (U)on 08-17-2024 Bilirubin, UA Negative Negative - 4(70) +++ mg/dL [facility] Blood, UA Negative Negative - 50 Shaun/mcL [facility] Clarity, UA Clear [facility] Color, UA Yellow [facility] Glucose, UA Negative Negative - 1999(110) ++++ mg/dL [facility] [...] Urobilinogen, UA 0.2 0.2 - 12 mg/dL [facility] Urinalysis macro (dipstick) panel (U)on 08-02-2024 Bilirubin, UA Negative Negative - 4(70) +++ mg/dL [facility] Blood, UA Negative Negative - 50 Shaun/mcL [facility] Clarity, UA Clear [facility] Color, UA Yellow [facility] Glucose, UA Negative Negative - 1999(110) ++++ mg/dL [facility] [...] Urobilinogen, UA 0.2 0.2 - 12 mg/dL [facility] GLUCOSE 1 HOURon 07-21-2024 Glucose [Mass/Vol] 98 mg/dL NINF - 13 0 mg/dL [facility] Urinalysis macro (dipstick) panel (U)on 07-03-2024 Bilirubin, UA Negative Negative - 4(70) +++ mg/dL [facility] Blood, UA Negative Negative - 50 Shaun/mcL [facility] Clarity, UA Clear [facility] Color, UA Yellow [facility] Glucose, UA Negative Negative - 1999(110) ++++ mg/dL [facility] Interpretation and review of laboratory results Normal [facility] Ketones, UA Negative Negative - 160(16) ++++ mg/dL [facility] Leukocytes, UA Negative Negative - 500+++ [...] Urobilinogen, UA 0.2 0.2 - 12 mg/dL [facility] Cytology Cervical or vaginal smear or scraping studyon 06-01-2024 [facility] XR RIBS BILATERAL (3 VIEWS)o n [...] Frantz Urias MD 01/14/20 Final result Normal [facility] XR RIBS BILATERAL (3 VIEWS)o n 01-14-2020 INR Coag (Bld) [Relative time] NO ACUTE ACTIVE CARDIOPULMONARY PROCESS. NO ACUTE FRACTURES [place], [place] EXAMINATION: XR RIBS BILATERAL (3 VIEWS) CLINICAL HISTORY: Status post fall on concrete steps this morning. Back pain COMPARISONS: None FINDINGS: 5 views of the chest and ribs are submitted. The cardiac silhouette is of normal size configuration. Pulmonary vascular unremarkable. Right sided trachea. No focal infiltrates. No effusions. No Pneumothoraces. Additional views of left and right ribs show no fracture. [place], [place] Vj, po Incoming Radiant Results From [employer] - 01/14/2020 11:44 PM EDT EXAMINATION: XR [...] ACUTE ACTIVE CARDIOPULMONARY PROCESS. NO ACUTE FRACTURES [place], [place] Culture, Respiratory (Upper) on 10-07-2018 Culture, Respiratory (Upper) BILL#: [id number] : 89 AGE: SEX:FFRANKSOURCE: Throat/Pharynx COLLECTED: 10/07/18 05:25ANTIBIOTICS AT [facility].: RECEIVED : 10/10/18 11:49SITE:R E S U L T SRESPIRATORY CULTURE,UPPER FINAL 10/12/18 08:05NORMAL THROAT ANDREW. Normal [facility] Comment on above: Performed By: #### C XRSU ####[facility] [id number] [place] [address] Hepatitis B Surface Abon Hepatitis B Surface Ab 4.4 mIU/mL Normal <10 [facility] Comment on above: Result Comment: INTE RPRETIVE CRITERIA:<10 mIU/mL....NONREACTIVE>=10 mIU/mL...REACTIVE.Patients receiving more than 5 mg/day of biotin may have interfin test results. A sample should be taken no sooner than eightafter previous dose. Contact [phone] for additional infor Hepatitis B Surface Antigeno n 04-04-2018 Hepatitis B Surface Antigen NONREACTIVE Normal NONREACTIVE [facility] Comment on above: Result Comment: Rose Mary ents receiving more than 5 mg/day of biotin may have interfin test results. A sample should be taken no sooner than eightafter previous dose. Contact [phone] for additional infor Quantiferon- TB Gold in Tube on 04-04-2018 Quantiferon- Mitogen minus NIL 9.62 IU/mL Normal [facility] Comment on above: Performed By: #### Q FTG ####[id number] [place] [address] Quantiferon- NIL 0.11 IU/mL Normal [facility] Comment on above: Result Comment: Perf ormed by [employer],[address] [place] [address] ifz.Brenco, Ashwin Cramer MD - Lab. Director Performed By: #### Q FTG ####[id number] [place] [address] Quantiferon-TB Gold in Tube Negative Normal Negative [facility] Comment on above: Result Comment: INTE RPRETIVE [...] to DetectMycobacterium tuberculosis Infection --- [place], 2010(http://www.cdc.gov/mmwr/preview/mmwrhtml/he5901f5.htm), forinformation concerning test performance in low-prevalencepopulations and use in occupational screening. Performed By: #### Q FTG ####[id number] [place] [address] Vital Signs Date Time Vital Sign Value Performing Clinician Facility 11-09-2024 17:45-0500 Hourly Rounding Jerson HANSONO [facility] Comment on above: Result Comment: discharged at this time to private vehicle for departure 11-09-2024 16:36-0500 Heart rate 89 /min Jerson BRIANNA [facility] 11-09-2024 16:36-0500 SaO2% (BldA) [Mass fraction] 98 % Jerson BRIANNA [facility] 11-09-2024 16:35-0500 Body temperature 98.06 [degF] Jerson BRIANNA [facility] 11-09-2024 16:35-0500 Diastolic blood pressure 71 mm[Hg] Jerson BRIANNA [facility] 11-09-2024 16:35-0500 Mean blood pressure 86 mm[Hg] Jerson BRIANNA [facility] 11-09-2024 16:35-0500 Systolic blood pressure 114 mm[Hg] Jerson BRIANNA [facility] 11-09-2024 16:30-0500 Blood Pressure Location Jerson BRIANNA [facility] 11-09-2024 16:30-0500 Hourly Rounding Jerson BRIANNA [facility] 11-09-2024 15:00-0500 Hourly Rounding Jerson BRIANNA [facility] Comment on above: Result Comment: pt resting at this time no s/s of distress noted at this time 11-09-2024 09:42-0500 Heart rate 82 /min Jerson BRIANNA [facility] 11-09-2024 09:42-0500 SaO2% (BldA) [Mass fraction] 97 % Jerson BRIANNA [facility] 11-09-2024 09:42-0500 Diastolic blood pressure 77 mm[Hg] Jerson BRIANNA [facility] 11-09-2024 09:42-0500 Mean blood pressure 90 mm[Hg] Jerson BRIANNA [facility] 11-09-2024 09:42-0500 Systolic blood pressure 116 mm[Hg] Jerson BRIANNA [facility] 11-09-2024 09:30-0500 Body temperature 98.42 [degF] Jerson BRIANNA [facility] 11-09-2024 09:30-0500 Respiratory rate 18 /min Jerson BRIANNA [facility] 11-08-2024 22:45-0500 Blood Pressure Location Jerson BRIANNA [facility] 11-08-2024 22:45-0500 Body temperature 97.7 [degF] Jerson BRIANNA [facility] 11-08-2024 22:45-0500 Diastolic blood pressure 65 mm[Hg] Jerson BRIANNA [facility] 11-08-2024 22:45-0500 Heart rate 94 /min Jerson BRIANNA [facility] 11-08-2024 22:45-0500 Mean blood pressure 82 mm[Hg] Jerson BRIANNA [facility] 11-08-2024 22:45-0500 Respiratory rate 16 /min Jerson BRIANNA [facility] 11-08-2024 22:45-0500 Systolic blood pressure 116 mm[Hg] Jerson BRIANNA [facility] 11-08-2024 21:10-0500 Blood Pressure Location Jerson BRIANNA [facility] 11-08-2024 21:10-0500 Body temperature 97.7 [degF] Jerson BRIANNA [facility] 11-08-2024 21:10-0500 Mean blood pressure 92 mm[Hg] Jerson BRIANNA [facility] 11-08-2024 21:10-0500 Respiratory rate 20 /min Jerson BRIANNA [facility] 11-08-2024 21:10-0500 SaO2% (BldA) [Mass fraction] 98 % Jerson BRIANNA [facility] 11-08-2024 18:30-0500 Mean blood pressure 92 mm[Hg] Jerson BRIANNA [facility] 11-06-2024 10:40-0500 Hourly Rounding Jerson BRIANNA [facility] Comment on above: Result Comment: monitor off, react billy tracing, Ultrasound here to do BPP 11-06-2024 09:06-0500 Body weight 90.45 kg Jerson Brianna DO Work Phone: [facility] 11-06-2024 09:06-0500 Diastolic blood pressure 70 mm[Hg] Jerson Brianna DO Work Phone: [facility] 11-06-2024 09:06-0500 Systolic blood pressure 120 mm[Hg] Jerson Brianna DO Work Phone: [facility] 10-30-2024 09:20-0500 Body weight 89.81 kg Randee Rosado PA Work Phone: [facility] 10-30-2024 09:20-0500 Diastolic blood pressure 72 mm[Hg] Randee Rosado PA Work Phone: [facility] 10-30-2024 09:20-0500 Systolic blood pressure 120 mm[Hg] Randee CARCAMO Work Phone: [facility] 10-19-2024 08:41-0500 Body weight 89.87 kg Jerson Brianna DO Work Phone: [facility] 10-19-2024 08:41-0500 Diastolic blood pressure 70 mm[Hg] Jerson Brianna DO Work Phone: [facility] 10-19-2024 08:41-0500 Systolic blood pressure 118 mm[Hg] Jerson Brianna DO Work Phone: [facility] 10-11-2024 08:54-0500 Body weight 88.63 kg Randee Rosado PA Work Phone: [facility] 10-11-2024 08:54-0500 Diastolic blood pressure 70 mm[Hg] Randee Rosado PA Work Phone: [facility] 10-11-2024 08:54-0500 Systolic blood pressure 120 mm[Hg] Randee Rosado PA Work Phone: [facility] 09-27-2024 13:49-0500 Body weight 88.81 kg Jerson Brianna DO Work Phone: [facility] 09-27-2024 13:49-0500 Diastolic blood pressure 66 mm[Hg] Jerson Brianna DO Work Phone: [facility] 09-27-2024 13:49-0500 Systolic blood pressure 114 mm[Hg] Jerson Brianna DO Work Phone: [facility] 09-14-2024 09:38-0500 Body weight 88 kg Randee CARCAMO Work Phone: [facility] 09-14-2024 09:38-0500 Diastolic blood pressure 68 mm[Hg] Randee CARCAMO Work Phone: [facility] 09-14-2024 09:38-0500 Systolic blood pressure 112 mm[Hg] Randee CARCAMO Work Phone: [facility] 08-31-2024 09:00-0500 Body weight 87.54 kg Jerson Brianna DO Work Phone: [facility] 08-31-2024 09:00-0500 Diastolic blood pressure 68 mm[Hg] Jerson Brianna DO Work Phone: [facility] 08-31-2024 09:00-0500 Systolic blood pressure 110 mm[Hg] Jerson Brianna DO Work Phone: [facility] 08-17-2024 09:05-0400 Body weight 86.24 kg Jerson Brianna DO Work Phone: [facility] 08-17-2024 09:05-0400 Diastolic blood pressure 70 mm[Hg] Jerson Brianna DO Work Phone: [facility] 08-17-2024 09:05-0400 Systolic blood pressure 110 mm[Hg] Jerson Brianna DO Work Phone: [facility] 08-02-2024 14:39-0400 Body weight 86.18 kg Randee CARCAMO Work Phone: [facility] 08-02-2024 14:39-0400 Diastolic blood pressure 76 mm[Hg] Randee CARCAMO Work Phone: [facility] 08-02-2024 14:39-0400 Systolic blood pressure 118 mm[Hg] Randee CARCAMO Work Phone: [facility] 07-03-2024 09:50-0400 Body weight 87.09 kg Randee Mcelroysumanth CARCAMO Work Phone: [facility] 07-03-2024 09:50-0400 Diastolic blood pressure 70 mm[Hg] Randee CARCAMO Work Phone: [facility] 07-03-2024 09:50-0400 Systolic blood pressure 120 mm[Hg] Randee CARCAMO Work Phone: [facility] 01-15-2020 00:11-0400 Body Temperature 98.01 [degF] [place] [facility] [place] 01-15-2020 00:11-0400 BP Diastolic 65 mm[Hg] [place] [facility] [place] 01-15-2020 00:11-0400 BP Systolic 130 mm[Hg] [place] [facility] [place] 01-15-2020 00:11-0400 Pulse (Heart Rate) 65 /min [facility] [place] 01-15-2020 00:11-0400 Pulse Oximetry 98 % [facility] [place] 01-15-2020 00:11-0400 Respiratory Rate 18 /min [place] [facility] [place] 01-14-2020 22:40-0400 BMI (Body Mass Index) 30.79 kg/m2 [facility] [place] 01-14-2020 22:40-0400 Body weight 83.92 kg [place] [facility] [place] 01-14-2020 22:40-0400 Height 165.1 cm [place] [facility] [place] 04-04-2018 18:43-0400 Body mass index (BMI) [Ratio] 0.00 IU/mL ELIZABETH HARVEYVickey [facility] Comment on above: Performed By: #### QFTG ####[id number] [place] [address] Encounters Encounter Date Encounter Type Care Provider Facility Start: 11-10-2024 End: 11-10-2024 ambulatory Jerson R BRIANNA Facility[facility] Start: 11-10-2024 End: 11-10-2024 Patient encounter procedure Jerson R BRIANNA [facility] Start: 11-08-2024 End: 11-09-2024 Evaluation and management of inpatient Jerson R BRIANNA [facility] Start: 11-06-2024 End: 11-06-2024 Bamboo flowsheet Jerson Brianna DO Work Phone: [facility] Start: 11-06-2024 End: 11-06-2024 Bamboo flowsheet Jerson Brianna DO Work Phone: [facility] Start: 11-06-2024 End: 11-06-2024 ambulatory Jerson R BRIANNA [facility] [facility] [place] Start: 11-06-2024 End: 11-06-2024 Patient encounter procedure Jerson R BRIANNA [facility] Start: 11-06-2024 End: 11-06-2024 flow sheet Jerson Brianna DO Work Phone: [facility] Comment on above: 40 weeks gestation o f ; Irregular heart rate; Bradycardic baseline heart rate Start: 11-06-2024 End: 11-06-2024 ambulatory JERSON BRIANNA Not Available Start: 10-30-2024 End: 10-30-2024 Bamboo flowsheet Randee CARCAMO Work Phone: [facility] Start: 10-30-2024 End: 10-30-2024 Bamboo flowsheet Randee CARCAMO Work Phone: [facility] Start: 10-30-2024 End: 10-30-2024 ambulatory RANDEE ROSADO Not Available Start: 10-30-2024 End: 10-30-2024 flow sheet Randee CARCAMO Work Phone: [facility] Comment on above: Third trimester preg maycol; 39 weeks gestation of Start: 10-19-2024 End: 10-19-2024 Bamboo flowsheet Jerson Brianna DO Work Phone: [facility] Start: 10-19-2024 End: 10-19-2024 Bamboo flowsheet Jerson Brianna DO Work Phone: [facility] Start: 10-19-2024 End: 10-19-2024 flow sheet Jerson Brianna DO Work Phone: [facility] Comment on above: 37 weeks gestation o f ; Third trimester Start: 10-19-2024 End: 10-19-2024 ambulatory JERSON BRIANNA Not Available Start: 10-11-2024 End: 10-11-2024 Bamboo flowsheet Randee CARCAMO Work Phone: [facility] Start: 10-11-2024 End: 10-16-2024 Bamboo flowsheet Randee CARCAMO Work Phone: [facility] Start: 10-11-2024 End: 10-16-2024 Clinisync Result Encounter Randee CARCAMO Work Phone: [facility] Unsolicited Start: 10-11-2024 End: 10-11-2024 flow sheet Randee CARCAMO Work Phone: [facility] Comment on above: 36 weeks gestation o f ; Third trimester Start: 10-11-2024 End: 10-11-2024 ambulatory RANDEE ROSADO Not Available Start: 10-10-2024 End: 10-10-2024 Clinisync Result Encounter Jerson Brianna DO Work Phone: [facility] Unsolicited Start: 10-10-2024 End: 10-10-2024 Clinisync Result Encounter Jerson Brianna DO Work Phone: [facility] Unsolicited Start: 09-27-2024 End: 09-27-2024 Bamboo flowsheet Jerson Brianna DO Work Phone: [facility] Start: 09-27-2024 End: 09-27-2024 Bamboo flowsheet Jerson Brianna DO Work Phone: [facility] Start: 09-27-2024 End: 09-27-2024 flow sheet Jerson Brianna DO Work Phone: [facility] Comment on above: Third trimester preg maycol; 34 weeks gestation of ; Anemia during in third trimester; Size of fetus inconsistent with dates in third trimester Start: 09-27-2024 End: 09-27-2024 ambulatory JERSON BRIANNA Not Available Start: 09-14-2024 End: 09-14-2024 Bamboo flowsheet Randee CARCAMO Work Phone: [facility] Start: 09-14-2024 End: 09-14-2024 Bamboo flowsheet Randee CARCAMO Work Phone: [facility] Start: 09-14-2024 End: 09-14-2024 ambulatory RANDEE ROSADO Not Available Start: 09-14-2024 End: 09-14-2024 flow sheet Randee CARCAMO Work Phone: [facility] Comment on above: Third trimester preg maycol; 32 weeks gestation of Start: 08-31-2024 End: 08-31-2024 Bamboo flowsheet Jerson Brianna DO Work Phone: [facility] Start: 08-31-2024 End: 08-31-2024 Bamboo flowsheet Jerson Brianna DO Work Phone: [facility] Start: 08-31-2024 End: 08-31-2024 ambulatory JERSON BRIANNA Not Available Start: 08-31-2024 End: 08-31-2024 flow sheet Jerson Brianna DO Work Phone: [facility] Comment on above: Third trimester preg maycol; 30 weeks gestation of ; Anemia during in third trimester Start: 08-30-2024 End: 08-30-2024 Clinisync Result Encounter Jerson Brianna DO Work Phone: [facility] Unsolicited Start: 08-30-2024 End: 08-30-2024 Clinisync Result Encounter Jerson Brianna DO Work Phone: [facility] Unsolicited Start: 08-17-2024 End: 08-17-2024 Bamboo flowsheet Jerson Brianna DO Work Phone: [facility] Start: 08-17-2024 End: 08-17-2024 Bamboo flowsheet Jerson Brianna DO Work Phone: [facility] Start: 08-17-2024 End: 08-17-2024 ambulatory JERSON BRIANNA Not Available Start: 08-17-2024 End: 08-17-2024 flow sheet Jerson Brianna DO Work Phone: [facility] [...] CARCAMO Work Phone: [facility] Start: 07-21-2024 End: 07-21-2024 Clinisync Result Encounter Randee CARCAMO Work Phone: [facility] Unsolicited Start: 07-21-2024 End: 07-21-2024 Clinisync Result Encounter Randee CARCAMO Work Phone: [facility] Unsolicited Start: 07-03-2024 End: 07-03-2024 Bamboo flowsheet Randee CARCAMO Work Phone: [facility] Start: 07-03-2024 End: 07-03-2024 Bamboo flowsheet Randee CARCAMO Work Phone: [facility] Start: 07-03-2024 End: 07-03-2024 flow sheet Randee CARCAMO Work Phone: [facility] Comment on above: 22 weeks gestation o f ; Diabetes mellitus screening Start: 07-03-2024 End: 07-03-2024 ambulatory RANDEE ROSADO Not Available Start: 06-01-2024 End: 06-01-2024 ambulatory JERSON BRIANNA Not Available Start: 05-02-2024 End: 05-02-2024 ambulatory JERSON BRIANNA Not Available Start: 04-07-2024 End: 04-07-2024 ambulatory JERSON BRIANNA Not Available Start: 01-15-2020 End: 01-15-2020 [facility]: 01-14-2020 End: 01-15-2020 Emergency department patient visit Willi Carver Work Phone: [facility] ED Comment on above: Contusion of chest w all, unspecified laterality, subsequent encounter (Primary Dx); Fall, initial encounter Start: 10-07-2018 Patient encounter procedure [facility] [employer] [facility] Start: 04-04-2018 [facility] Procedures Date Procedure Procedure Detail Performing Clinician Start: 11-06-2024 Urnls dip stick/tabl et rgnt non-auto w/o micrscp Jerson Brianna DO Work Phone: Start: 10-30-2024 Urnls dip stick/tabl et rgnt non-auto w/o micrscp Randee CARCAMO Work Phone: Start: 10-19-2024 Urnls dip stick/tabl et rgnt non-auto w/o micrscp Jerson Brianna DO Work Phone: Start: 10-11-2024 Urnls dip stick/tabl et rgnt non-auto w/o micrscp Randee CARCAMO Work Phone: Start: 10-11-2024 ALL MISCELLANEOUS TEST Randee CARCAMO Work Phone: Start: 10-10-2024 ALL CBC WITH AUTO DIFF Jerson Brianna DO Work Phone: Start: 09-27-2024 Urnls dip stick/tabl et rgnt non-auto w/o micrscp Jerson Brianna DO Work Phone: Start: 09-14-2024 Urnls dip stick/tabl et rgnt non-auto w/o micrscp Randee CARCAMO Work Phone: Start: 08-31-2024 Urnls dip stick/tabl et rgnt non-auto w/o micrscp Jerson Brianna DO Work Phone: Start: 08-30-2024 ALL CBC WITH AUTO DIFF Jerson Brianna DO Work Phone: Start: 08-17-2024 Urnls dip stick/tabl et rgnt non-auto w/o micrscp Jerson Brianna DO Work Phone: Start: 08-02-2024 Urnls dip stick/tabl et rgnt non-auto w/o micrscp Randee CARCAMO Work Phone: Start: 07-21-2024 GLUCOSE 1 HOUR Randee Choudhury Work Phone: Start: 07-03-2024 Urnls dip stick/tabl et rgnt non-auto w/o micrscp Randee CARCAMO Work Phone: Start: 06-01-2024 Cytp cerv/vag auto t hin layer prep mnl screen Randee CARCAMO Work Phone: Start: 01-15-2020 Radex ribs bilateral 3 views ELIZABETH CANDICEOSY Start: 01-14-2020 Radex ribs bilateral 3 views Willi O Akusoba Work Phone: Start: 10-25-2005 Vesicoureteric reflu x (disorder) Jerson REED Plan of Treatment Date Care Activity Detail Author Start: 2049 Shingles Vaccine (1 of 2) Shingles Vaccine (1 of 2) [facility] [place] Start: 11-06-2024 End: 11-06-2025 US biophysical profile w non stress test US biophysical profile w non stress test Imaging Routine 40 weeks gestation of Irregular heart rate Bradycardic baseline heart rate Expected: 11/06/2024 (Approximate), Expires: 11/06/2025 [facility] Work Phone: Comment on above: Expected: 11/06/2024 (Approximate), Expires: 11/06/2025 Start: 11-06-2024 End: 11-06-2024 Patient encounter procedure [facility] Comment on above: Arrived Start: 10-30-2024 End: 10-30-2024 Patient encounter procedure 10/30/2024 9:10 AM EST Routine [facility] [address] [place] [id number] Randee Rosado PA [address] [place], [place] [id number] [facility] Start: 10-19-2024 End: 10-19-2024 Patient encounter procedure [facility] Comment on above: Arrived Start: 10-11-2024 End: 10-11-2025 CULTURE, GROUP B STREP WITH SUSCEPTIBLITY CULTURE, GROUP B STREP WITH SUSCEPTIBLITY Lab Routine Third trimester Expected: 10/11/2024, Expires: 10/11/2025 [facility] Work Phone: Comment on above: Expected: 10/11/2024 , Expires: 10/11/2025 Start: 10-11-2024 End: 10-11-2024 Patient encounter procedure [facility] Comment on above: Arrived Start: 10-11-2024 End: 10-11-2024 Professional / ancillary services management 10/11/2024 8:00 AM EST Ancillary Procedure [facility] [address] [address] [facility] Start: 09-27-2024 End: 09-27-2025 US for US OB SCAN FOR GROWTH Imaging Routine Size of fetus inconsistent with dates in third trimester Expected: 09/27/2024 (Approximate), Expires: 09/27/2025 [facility] Comment on above: Expected: 09/27/2024 (Approximate), Expires: 09/27/2025 Start: 09-27-2024 End: 09-27-2024 Patient encounter procedure 09/27/2024 1:20 PM EST Routine [facility] [address] [place] [phone] Jerson Reed, DO [address] [place] [address] Arrived [facility] Comment on above: Arrived Start: 09-14-2024 End: 09-14-2024 Patient encounter procedure 09/14/2024 9:20 AM EST Routine [facility] [address] [place] [phone] Randee Rosado PA [address] [place] [address] [facility] Start: 08-31-2024 End: 08-31-2024 Patient encounter procedure 08/31/2024 8:30 AM EST Routine [facility] [address] [place] [address] Jerson Reed, DO [address] [place] [address] [facility] Start: 08-31-2024 End: 08-31-2024 Professional / ancillary services management 08/31/2024 8:00 AM EST Ancillary Procedure [facility] [address] [place] [phone] [facility] Start: 08-17-2024 End: 08-17-2025 US for US OB SCAN FOR GROWTH Imaging Routine Third trimester Size of fetus inconsistent with dates in third trimester Expected: 08/17/2024 (Approximate), Expires: 08/17/2025 [facility] Work Phone: Comment on above: Expected: 08/17/2024 (Approximate), Expires: 08/17/2025 Start: 08-17-2024 End: 08-17-2024 Patient encounter procedure 08/17/2024 8:50 AM EDT Routine [facility] [address] [place] [address] Jerson Reed DO [address] [place], [place] [id number] [facility] Start: 08-01-2024 End: 08-01-2024 Patient encounter procedure 08/01/2024 9:30 AM EDT Routine [facility] [address] [place] [phone] Randee Rosado PA [address] [place], [place] [phone] [facility] Start: 07-03-2024 End: 07-03-2025 CBC panel - Blood by Automated count CBC Lab Routine Diabetes mellitus screening Expected: 07/03/2024 (Approximate), Expires: 07/03/2025 [facility] Work Phone: Comment on above: Expected: 07/03/2024 (Approximate), Expires: 07/03/2025 Start: 07-03-2024 End: 07-03-2025 Measurement of glucose 1 hour after glucose challenge for glucose tolerance test Glucose tolerance, 1 hour Lab Routine Diabetes mellitus screening Expected: 07/03/2024 (Approximate), Expires: 07/03/2025 [facility] Comment on above: Expected: 07/03/2024 (Approximate), Expires: 07/03/2025 Start: 07-03-2024 End: 07-03-2024 Patient encounter procedure 07/03/2024 9:30 AM EDT Routine [facility] [address] [place] [address] Randee Rosado PA [address] [place] [address] Arrived [facility] Comment on above: Arrived Start: 06-25-2024 Influenza vaccination Influenza Vacc ine (#1) [facility] Start: 06-25-2019 Influenza vaccination Flu vaccine (# 1) [place], [place] Start: 2015 Chlamydia screen Chlamydia screen [place], [place] Start: 2014 HIV screen HIV screen [place], [place] Start: 2010 DTaP/Tdap/Td vaccine (6 - Tdap) DTaP/Tdap/Td vaccine (6 - Tdap) [place], [place] Start: 2010 HPV vaccine (1 - 2-d ose series) HPV vaccine (1 - 2-dose series) [place], [place] Start: 2005 Pneumococcal 0-64 ye ars Vaccine (1 of 1 - PPSV23) Pneumococcal 0-64 years Vaccine (1 of 1 - PPSV23) [place], [place] Start: 2000 Varicella vaccine (1 of 2 - 2-dose childhood series) Varicella vaccine (1 of 2 - 2-dose childhood series) [place], [place] CBC W Auto Different ial panel - Blood CBC and differential Lab Routine Anemia, unspecified type Ordered: 08/17/2024 [facility] Comment on above: Ordered: 08/17/2024 CBC W Auto Different ial panel - Blood CBC and differential Lab Routine Anemia during in third trimester Ordered: 09/27/2024 [facility] Work Phone: Comment on above: Ordered: 09/27/2024 Ferritin [Mass/volum e] in Serum or Plasma Ferritin Lab Routine Anemia during in third trimester Ordered: 08/31/2024 [facility] Comment on above: Ordered: 08/31/2024 Transferrin [Mass/volume] in Serum or Plasma Transferrin Lab Routine Anemia during in third trimester Ordered: 08/31/2024 [facility] Work Phone: Comment on above: Ordered: 08/31/2024 Immunizations Immunization Date Immunization Notes Care Provider Kayla bragg 08-30-2024 influenza virus vaccine, unspecified formulation Jerson Reed DO Work Phone: [facility] 08-09-2023 influenza virus vaccine, unspecified formulation Randee CARCAMO Work Phone: [facility] Comment on above: Reason for Medicatio n: Prophylaxis Payers Date Payer Category Payer Private Health Insurance [employer] [id number] 2020 Unknown [id number] 2020 Unknown [id number] 1999 Unknown [id number] 2.16.840.1.175318.3.579.2 .355 1999 Unknown [id number] 2.16.840.1.054232.3.579.2 .355 1999 Unknown [id number] 2.16.840.1.706470.3.579.2 .185 1999 Unknown [id number] 2.16.840.1.924730.3.579.2 .1259 1999 Unknown [id number] 2.16.840.1.022702.3.579.2 .1258 1999 Unknown [id number] 2.16.840.1.669988.3.579.2 .1258 1999 Unknown [id number] 2.16.840.1.531179.3.579.2 .1258 1999 Unknown [id number] 2.16.840.1.059820.3.579.2 .1258 1999 Unknown [id number] 2.16.840.1.449303.3.579.2 .1258 1999 Unknown [id number] 2.16.840.1.853057.3.579.2 .1258 1999 Unknown [id number] 2.16.840.1.881555.3.579.2 .1258 1999 Unknown [id number] 2.16.840.1.759778.3.579.2 .1258 1999 Unknown [id number] 2.16.840.1.679644.3.579.2 .1258 1999 Unknown [id number] 2.16.840.1.885574.3.579.2 .1258 1999 Unknown [id number] 2.16.840.1.991405.3.579.2 .1258 1999 Unknown [id number] 2.16.840.1.115381.3.579.2 .1258 1999 Unknown [id number] 2.16.840.1.627430.3.579.2 .1999 Unknown [id number] 2.16.840.1.950584.3.579.2 .1999 Unknown [id number] 2.16.840.1.242536.3.579.2 .1999 Unknown [id number] 2.16.840.1.853496.3.579.2 .1999 Unknown [id number] 2.16.840.1.964267.3.579.2 . Unknown [employer] M [employer] [address] xxxxxxxxxxxx Effective for all dates [phone] [address] [place] [address] xxxxxxxxxxxx [id number] Social History Date Type Detail Facility Start: 01-14-2020 Tobacco smoking stat [facility] Current some day smoker [place], [place] Start: 01-14-2020 Alcohol intake Current drinke r of alcohol (finding) [place], [place] Start: 2000 Sex Assigned At Not on file M [place], [place] Start: 04-07-2024 Tobacco smoking stat [facility] Never smoked tobacco [facility] Start: 04-07-2024 Tobacco use and exposure Smokeless tobacco non-user [facility] Start: 08-02-2024 End: 11-06-2024 Alcoholic beverage intake Ex-drinker (finding) [facility] Start: 04-07-2024 History of Social function [facility] Start: 04-07-2024 Tobacco use panel [facility] Start: 02-14-2024 [facility] Tobacco smoking status No Smokin g Status Entered [facility] Functional Status Date Assessment Result Facility 11-08-2024 Functional Status No [facility] 11-06-2024 Functional Status N/A [facility] Clinical Notes 05-02-2021 to 11-09-2024 Note Date & Type Note Facility 11-09-2024 Note Progress Note-Physic rita Patient: JENNIFER SMITH Age: 24 years Sex: Female : 2000 Associated Diagnoses: None Author: Deacon Harris Jr, DO Chief Complaint Intrauterine Health Status Allergies: Allergic Reactions (All) No Known Medication Allergies Canceled/Inactive Reactions (All) Severity Not Documented Unable to obtain- Unknown. Current medications.Problem list: All Problems Resolved: / SNOMED CT [id number] Review of Systems Respiratory: Negative. Cardiovascular: Negative. Hematology/Lymphatics: No bruising tendency, No bleeding tendency. Neurologic: Negative. Physical Examination Please refer to Labor floor nursing records for ongoing vital signs, and for intake and output totals while epidural was running. Review / Management Differential diagnosis: Active labor. OB Results Review Impression and Plan Plan Labor epidural at request of patient.. Procedure Epidural injection procedure Date/ Time: 11/08/2024 10:05:00. Confirmed: patient, procedure, site, safety procedures followed. Performed by: Deacon Harris DO. Informed consent: signed by patient. Indication: Active labor.. Physical Exam: Mallampati class 1(soft palate, fauces, uvula, pillars visible). Preparation and technique: informed consent obtained (from patient before the procedure), positioned (sitting), sterile preparation of site (patient's back was sterilly prepped and draped) (in usual fashion, with 10 % povidone iodine, draped to expose affected area), local anesthesia (1% lidocaine was applied to the patient's back before the epidural was attempted) (lidocaine without epinephrine, _1_ cc injected subcutaneously), approach (midline), needle (17 ga touhy) (placed via loss of resistance technique, At _L4-L5_ interspace.), aspiration (attempted for blood and CSF), injectant (test dose consisting of 3 ml of 1.5% lodocaine with 1:200,000 epi) (test dose given, Epidural catheter inserted and secured at a depth of _11_ cm at skin.). [place] [employer]esthesi[employer] (ASA) physical status classification: Class II. Procedure tolerated: well. Complications: Negative heme, negative CSF, and negative response to test dose.. Professional Services Medications Administered: Epidural Medications Administered: Bolus dose consisted of 9 ml of 0.2% Ropivicaine, and 100 mcg of fentanyl (2 ml) . Then an epidural mix of 0.2% Ropivicaine, , and 2 mcg/ml of fentanyl was administered at 10 ml/hour with a PCEA bolus dose of 5cc q30min PRN. [facility] Comment on above: Result Comment: Elec tronically Signed By: Deacon Harris Jr, DO\.br\Date and Time Signed: 11/09/24 23:19 EST 11-09-2024 Note Progress Note-Physic rita Patient: JENNIFER SMITH Age: 24 years Sex: Female : 2000 Associated Diagnoses: None Author: Deacon Harris Jr, DO Postoperative Information Postoperative disposition: Postoperative disposition: To PACU. Optimetrix number: Optimetrix number [phone]. Anesthetic utilized: General. Health Status Allergies: Allergic Reactions (Selected) No Known Medication Allergies Physical Examination Vital Signs 11/08/2024 11:15 EST Heart Rate Monitored 74 bpm Respiratory Rate 18 br/min Systolic Blood Pressure 104 mmHg Diastolic Blood Pressure 57 mmHg LOW Blood Pressure Location Right arm Mean Arterial Pressure, Cuff 73 mmHg SpO2 98 % 11/08/2024 11:00 EST Heart Rate Monitored 83 bpm Respiratory Rate 18 br/min Systolic Blood Pressure 110 mmHg Diastolic Blood Pressure 61 mmHg Blood Pressure Location Right arm Mean Arterial Pressure, Cuff 77 mmHg SpO2 97 % 11/08/2024 10:55 EST Heart Rate Monitored 75 bpm Respiratory Rate 18 br/min Systolic Blood Pressure 118 mmHg Diastolic Blood Pressure 59 mmHg Blood Pressure Location Right arm Mean Arterial Pressure, Cuff 79 mmHg SpO2 98 % 11/08/2024 10:50 EST Heart Rate Monitored 80 bpm Respiratory Rate 18 br/min Systolic Blood Pressure 121 mmHg Diastolic Blood Pressure 60 mmHg Blood Pressure Location Right arm Mean Arterial Pressure, Cuff 80 mmHg SpO2 98 % 11/08/2024 10:45 EST Temperature Oral 36.9 DegC Heart Rate Monitored 77 bpm Respiratory Rate 18 br/min Systolic Blood Pressure 115 mmHg Diastolic Blood Pressure 61 mmHg Blood Pressure Location Right arm Mean Arterial Pressure, Cuff 79 mmHg Mean Arterial Pressure, Cuff 79 mmHg SpO2 98 % Pain Assessment: Controlled. General: Awake, Alert, Appropriate. Respiratory: Adequate air exchange. Cardiovascular: Stable, Normal peripheral perfusion. Neurological: Normal sensory function, Normal motor function. Assessment Anesthetic outcome No anesthetic complications noted. Adequate pain relief. able to void without difficulty, able to ambulate with assist, tolerating PO intake, no N/V. Review / Management Condition: Stable. Plan Transfer/Discharge: Transfer/Discharge Discharge when meets criteria ( To home ). [facility] Comment on above: Result Comment: Elec tronically Signed By: Deacon Harris Jr, DO\.br\Date and Time Signed: 11/09/24 23:19 EST 11-09-2024 Note Discharge Instructio ns Given Worsening The following Patient Education Materials have been given to the patient: ~~ EducationMaterial [facility] 11-09-2024 Note GetWell Learning Par ticipants Patient Arthur Understands Education Yes GetWell Education Video Safe Sleep for Babies [facility] 11-09-2024 Note GetWell Understands Education Yes GetWell Education Video How to Prevent Abusive Head Trauma [employer] Learning Participants Patient [facility] 11-09-2024 Note GetWell Understands Education Yes GetWell Education Video Car Seat Safety [employer] Learning Participants Patient [facility] 11-09-2024 Note GetWell Understands Education GetWell Education Video Understanding Depression [employer] Learning Participants [facility] 11-09-2024 Evaluation + Plan note Extrac sherrie from: Title:OB Inpatient Progress Note * Au thor:Jerson REED DO R Date:11/09/24 Impression and Plan s/p pp day 1-doing well, dc home, precautions given, fu 6wks Extracted from: Title:ANES Post-operative Note---General Author: Deacon Harris Jr, DO Date:11/09/24 Plan Transfer/Discharge: Transfer/Discharge Discharge when meets criteria ( To home ). Extracted from: Title:OB Admission H&P L&D/ PreOp * Author:Jerson REED DO R Date:11/08/24 Impression and Plan iup at 40 2/7wks, rh positive, gbbs neg, ho uterine fibroid-iv, routine labs, cont efm, pit inductions, arom Extracted from: Title:OB Vag Delivery Procedure/L&D Summary * Au thor:Jerson REED DO R Date:11/08/24 Impression and Plan s/p , head was delivered gerda, nuchal cord times 1, followed by anterior shoulder and rest of body, cord clamped and cut, cord blood obtained, 3vc present, placenta delivered intact, 2nd degree lac repaired with 3-0 vicryl, a viable male, apgars 9at 1 and 10at 5, wt uknown Extracted from: Title:L&D Epidural note Ropivicaine PCEA Author: Deacon Harris Jr, DO Date:11/08/24 Impression and Plan Plan Labor epidural at request of patient.. [facility] 01-16-2025 NoteGetWell Understands Education Yes GetWell Education Video How to Hand Express Breast Milk GetWell Learning Participants [facility]01-16-2025 NoteGetWell Education Video How to Use a Breast Pump GetWell Learning Participants Patient GetWell Understands Education [facility]01-16-2025 NoteGetWell Learning Participants Patient GetWell Understands Education Yes GetWell Education Video [facility] V[facility] NoteGetWell Understands Education Yes GetWell Education Video : Getting Your Baby to Latch GetWell Learning Participants [facility]01-16-2025 NoteGetWell Understands Education Yes GetWell Education Video Your Baby GetWell Learning Participants [facility]01-16-2025 NoteGetWell Education Video Avoiding Infections in the Hospital GetWell Learning Participants Patient GetWell Understands Education [facility]01-16-2025 NoteProgress Note-Physician Patient: JENNIFER SMITH Age: 24 years Sex: Female : 2000 Associated Diagnoses: None Author: Jerson REED DO Basic Information no complaints, doing well Review of Systems Constitutional: Negative. Respiratory: Negative. Cardiovascular: Negative. Gastrointestinal: Negative. All other systems are negative Health Status Allergies: Allergic Reactions (All) No Known Medication Allergies Canceled/Inactive Reactions (All) Severity Not Documented Unable to obtain- Unknown., Allergies (Active and Proposed Allergies Only) No Known Medication Allergies (Severity: Unknown severity, Onset: Unknown) Current medications: (Selected) Inpatient Medications Ordered D5LR 1000 mL Soln-IV 1,000 mL: 1,000 mL, IV, 125 mL/hr, Routine, Start date 11/08/24 5:56:00 EST, 8hour(s), Total volume (mL): 1,000, 90.2 kg, 2.03, m2 Lanolin: 1 muna, Ointment, Topical, q2hr PRN Dry skin, Routine, Start date 11/08/24 16:19:00 EST, Patient may self administer Multivitamins with Folic Acid 1 mg Tab: 1 tab(s), Tab, Oral, Daily, Routine, Start date 11/09/24 9:00:00 EST Sodium Chloride 0.9% IV Jessy 1000 mL 1,000 mL: 1,000 mL, IV, 125 mL/hr, Routine, Start date 254:39:00 EST, 8 hour(s), Total volume (mL): 1,000, 90 kg, 2.03, m2 acetaminophen 325 mg Tab: 975 mg = 3 tab(s), Tab, Oral, q8hr PRN Headache, Routine, Start date 11/08/24 16:19:00 EST, 11/08/24 16:19:00 EST acetaminophen-codeine 300 mg-30 mg Tab: 1 tab(s), Tab, Oral, q6hr PRN Pain 1-3, Routine, Start date11/08/24 16:19:00 EST acetaminophen-codeine 300 mg-30 mg Tab: 2 tab(s), Tab, Oral, q6hr PRN Pain 4-7, Routine, Start date11/08/24 16:19:00 EST benzocaine-menthol 20%-0.5% topical spray: 1 spray(s), [place], Topical, q4hr PRN Pain, Routine, Start date 11/08/24 16:19:00 EST, Patient may self administer calcium carbonate 500 mg Chew Tab: 500 mg = 1 tab(s), Tab-Chew, Oral, q6hr PRN Control of stomach acid, Routine, Start date 11/08/24 16:19:00 EST, 11/08/24 16:19:00 EST docusate sodium 100 mg Cap: 100 mg = 1 cap(s), Cap, Oral, BID, Routine, Start date 11/08/24 21:00:00 EST, 11/08/24 16:19:00 EST hydrocortisone 2.5% Rectal Crm w/Appl: 1 muna, Cream-Muna, Rectal, QID PRN Other (see comment), Routine, Start date 11/08/24 16:19:00 EST hydrocortisone 25 mg Supp: 25 mg = 1 supp, Supp, Rectal, BID PRN Other (see comment), Routine, Start date 11/08/24 16:19:00 EST, 11/08/24 16:19:00 EST ibuprofen 600 mg Tab: 600 mg = 1 tab(s), Tab, Oral, q6hr PRN Other (see comment), Routine, Start date 11/08/24 16:19:00 EST, 11/08/24 16:19:00 EST measles/mumps/rubella virus vaccine subcutaneous injection: 0.5 mL, Powder-Inj, SubCutaneous, Once PRN Other (see comment), Routine, Start date 11/08/24 16:19:00 EST nalbuphine 10 mg/mL Inj 1 mL: 10 mg = 1 mL, Injection, IV Push, q3hr PRN Pain 4- 7, Routine, Start date 11/08/24 5:18:00 EST, 11/08/24 5:18:00 EST ondansetron 4 mg Dis Tab: 4 mg = 1 tab(s), Tab-Dis, Oral, q6hr PRN Nausea/Vomiting, Routine, Start date 11/08/24 4:40:00 EST, 11/08/24 4:40:00 EST ondansetron 4 mg/2 mL Inj: 4 mg = 2 mL, Injection, IV Push, q6hr PRN Nausea, Routine, Start date 11/08/24 5:18:00 EST, 11/08/24 5:18:00 EST oxytocin additive 30 unit(s) + Dextrose 5% in Lactated Ringers Premix 500 mL: 500 mL, IV, Titrate, Routine, Start date 11/08/24 7:30:00 EST, Total volume (mL): 500, Titrate to control bleeding after delivery of placenta., 90.2 kg, 2.03, m2 simethicone 80 mg Chew Tab: 80 mg = 1 tab(s), Tab-Chew, Oral, QID PRN Gas, Routine, Start date 11/08/24 16:19:00 EST, 11/08/24 16:19:00 EST tetanus/diphtheria/pertussis, acel (Tdap) 5 units-2.5 units-18.5 mcg/0.5 mL intramuscular suspensio...: 0.5 mL, Injection, IntraMuscular, Once PRN Other (see comment), Routine, Start date 11/08/24 16:19:00 EST tranexamic acid additive + premix generic diluent 100 mL: 1,000 mg = 100 mL, Soln-IV, IV Piggyback,Once, Stop date 11/08/24 8:00:00 EST, Routine, Start date 11/08/24 8:00:00 EST, 200 mL/hr, Infuse over 30 minute(s) agnieszka martinez rectal 50% pad: 1 muna, Pad, Topical, q4hr PRN Other (see comment), Routine, Start date 11/08/24 16:19:00 EST, Patient may self administer zolpidem 5 mg Tab: 5 mg = 1 tab(s), Tab, Oral, Bedtime PRN Sleep for 7 day(s), Stop date 11/15/24 16:18:00 EST, Routine, Start date 11/08/24 16:19:00 EST, 11/08/24 16:19:00 EST Documented Medications Documented Multivitamins: 1 tab(s), Oral, Daily, Refill(s) 0 ferrous sulfate: 325 mg, Oral, Daily, Refills(s) 0, Medications (23) Active Scheduled: (3) docusate sodium 100 mg Cap [F] 100 mg 1 cap(s), Oral, BID multivitamin, Multivitamins with FA 1 mg [F] 1 tab(s), Oral, Daily tranexamic acid + Generic Diluent 100 mL 1,000 mg 100 mL, IV Piggyback, Once Continuous: (3) Dextrose 5% in Lactated Ringers 1,000 mL 1,000 mL, IV, 125 mL/hr oxytocin 30 unit(s) + Dextrose 5% in Lactated Ringers intravenous solution 500 mL 500 mL, IV Sodium Chloride (more content not included)...[facility] on [facility]:Result Comment: Electronically Signed By: Jerson REED DO\.br\Date and Time Signed: 11/09/24 12:14 [id number] NoteProgress Note-Physician Patient: JENNIFER SMITH Age: 24 years Sex: Female : 2000 Associated Diagnoses: None Author: Jerson REED DO Basic Information Gestational Age: Gestational Age (EGA) and MACIEJ * Note: EGA calculated as of 11/08/2024 MACIEJ: 11/06/2024 EGA*: 40 weeks 2 days Type: Authoritative Method Date: 01/31/2024 Method: Last Menstrual Period (01/31/2024) Confirmation: Confirmed Description: -- Comments: -- Entered by: Thien Life CoachLilly on 11/08/2024 Other MACIEJ Calculations for this : No additional MACIEJ calculations have been recorded for this . 23 yo at 40 2/7wks presents for iol, gbbs neg, rh positive, Chief Complaint 11/08/2024 5:41 EST Induction History of Present Illness Patient is Para Information: : 2 Para Term: 0 Para : 0 Para Abortions: 1 Para Livin. Exam and Notes Exams and Notes Date: 11/08/24 EGA: 40w2d Weight (lbs kg): *198... Fundal Height (cm): -- Blood Pressure (mmHg): 130/73 Cervix Exam (Dil cm/Eff %/Sta -):9/90%/1 Labor S/S: Urine Glucose: Urine Protein: Next Visit: Baby A FHR: 125 Movement: Present per patient Presentation: -- Date: 11/06/24 EGA: 40w0d Weight (lbs kg): *198... Fundal Height (cm): -- Blood Pressure (mmHg): -- Cervix Exam (Dil cm/Eff %/Sta -):--/--/-- Labor S/S: Urine Glucose: Urine Protein: Next Visit: Baby A FHR: 135 Movement: Present per patient Presentation: -- . Review of Systems Constitutional: Negative. Respiratory: Negative. Cardiovascular: Negative. Gastrointestinal: Negative. Gynecologic: Negative. All other systems are negative Health Status Allergies: Allergic Reactions (All) No Known Medication Allergies Canceled/Inactive Reactions (All) Severity Not Documented Unable to obtain- Unknown., Allergies (Active and Proposed Allergies Only) No Known Medication Allergies (Severity: Unknown severity, Onset: Unknown) Current medications: (Selected) Inpatient Medications Ordered D5LR 1000 mL Soln-IV 1,000 mL: 1,000 mL, IV, 125 mL/hr, Routine, Start date 11/08/24 5:56:00 EST, 8hour(s), Total volume (mL): 1,000, 90.2 kg, 2.03, m2 Epidural Bag Ropivacaine Fentanyl 200 mL: 200 mL, Epidural, 10 mL/hr, for 48 hour(s), Stop date 11/10/24 9:20:00 EST, Routine, Start date 11/08/24 9:21:00 EST, 20 hour(s), Total volume (mL): 200, 90.2 kg, 2.03, m2 Lactated Ringers IV Jessy 1000 mL 1,000 mL: 1,000 mL, IV, 125 mL/hr, Routine, Start date 11/08/24 9:21:00 EST, 8 hour(s), Total volume (mL): 1,000, 90.2 kg, 2.03, m2 Lactated Ringers IV Jessy 1000 mL 1,000 mL: 1,000 mL, IV, Bolus, Other (see comment), Routine, Start date 11/08/24 9:21:00 EST, Total volume (mL): 1,000, 90.2 kg, 2.03, m2 Sodium Chloride 0.9% IV Jessy 1000 mL 1,000 mL: 1,000 mL, IV, 125 mL/hr, Routine, Start date :39:00 EST, 8 hour(s), Total volume (mL): 1,000, 90 kg, 2.03, m2 Zofran 4 mg/2 mL Injection: 4 mg = 2 mL, Injection, IV Push, q4hr PRN Itching, Routine, Start date 11/08/24 9:21:00 EST diphenhydrAMINE 50 mg/mL Inj: 25 mg = 0.5 mL, Injection, IV Push, q4hr PRN Itching, Routine, Start date 11/08/24 9:21:00 EST ePHEDrine 50 mg/mL Inj: 10 mg = 0.2 mL, Injection, IV Push, Once PRN Other (see comment), Routine, Start date 11/08/24 9:21:00 EST nalbuphine 10 mg/mL Inj 1 mL: 10 mg = 1 mL, Injection, IV Push, q3hr PRN Pain 4- 7, Routine, Start date 11/08/24 5:18:00 EST, 11/08/24 5:18:00 EST naloxone 1 mg/mL Soln: 2 mg = 2 mL, Injection, IV Push, Once PRN Other (see comment), Routine, Start date 11/08/24 9:21:00 EST ondansetron 4 mg Dis Tab: 4 mg = 1 tab(s), Tab-Dis, Oral, q6hr PRN Nausea/Vomiting, Routine, Start date 11/08/24 4:40:00 EST, 11/08/24 4:40:00 EST ondansetron 4 mg/2 mL Inj: 4 mg = 2 mL, Injection, IV Push, q6hr PRN Nausea, Routine, Start date 11/08/24 5:18:00 EST, 11/08/24 5:18:00 EST oxytocin additive 30 unit(s) + Dextrose 5% in Lactated Ringers Premix 500 mL: 500 mL, IV, Titrate, Routine, Start date 11/08/24 7:30:00 EST, Total volume (mL): 500, Titrate to control bleeding after delivery of placenta., 90.2 kg, 2.03, m2 oxytocin additive 30 unit(s) [2 munit/min] + Dextrose 5% in Lactated Ringers Premix 500 mL: 500 mL,IV, 2 mL/hr, Routine, Start date 11/08/24 6:14:00 EST, 250 hour(s), Total volume (mL): 500, Titrateper protocol, 90.2 kg, 2.03, m2 tranexamic acid additive + premix generic diluent 100 mL: 1,000 mg = 100 mL, Soln-IV, IV Piggyback,Once, Stop date 11/08/24 8:00:00 EST, Routine, Start date 11/08/24 8:00:00 EST, 200 mL/hr, Infuse over 30 minute(s) Documented Medications Documented Multivitamins: 1 tab(s), Oral, Daily, Refill(s) 0 ferrous sulfate: 325 mg, Oral, Daily, Refills(s) 0, Medications (15) Active Scheduled: (2) Lactated Ringers 1,000 mL 1,000 mL, IV tranexamic acid + Generic Diluent 100 mL 1,000 mg 100 mL, IV Piggyback, Once (more content not included)...[facility]Comment on above:Result Comment: Electronically Signed By: Jerson REED DO\Date and Time Signed: 11/08/24 16:07 [id number] NoteProgress Note-Physician Patient: JENNIFER SMITH Age: 24 years Sex: Female : 2000 Associated Diagnoses: None Author: Jerson REED DO Basic Information Gestational Age: Gestational Age (EGA) and MACIEJ * Note: EGA calculated as of 11/08/2024 MACIEJ: 11/06/2024 EGA*: 40 weeks 2 days Type: Authoritative Method Date: 01/31/2024 Method: Last Menstrual Period (01/31/2024) Confirmation: Confirmed Description: -- Comments: -- Entered by: Thien Life CoachLilly on 11/08/2024 Other MACIEJ Calculations for this : No additional MACIEJ calculations have been recorded for this . Procedure Labor/ Delivery Summary Results Review: Problems (Active Problems Only) (SNOMED CT: [id number], Onset: 01/31/24) Delivery Summary Baby A Membrane Status Information ROM Date/Time: 11/08/24 06:20:00 ROM Type: Artificial rupture with amnihook Amniotic Fluid Color/Description: Clear Labor Information Labor Onset Date/Time: 11/08/24 06:20:00 Labor Onset Methods: Induced Induction Methods: Artificial rupture of membranes, Oxytocin infusion Monitoring FHR Monitoring Method: Doppler ultrasound , Lab results 11/08/2024 11:03 EST UA Spec Desc Bowen UA Color Light-Yellow UA Clarity Turbid UA Spec Grav 1.011 UA pH 7.0 UA Protein Negative mg/dL UA Glucose Trace mg/dL UA Ketones Negative mg/dL UA Bili Negative mg/dL UA Blood Negative mg/dL UA Nitrite Negative mg/dL UA Urobilinogen Negative mg/dL UA Leuk Est Negative Kathe/uL UA RBC 0-3 graded/HPF UA Squam Epithelial 0-2 graded/HPF UA WBC 0-5 graded/HPF UA Mucous Negative graded/LPF 11/08/2024 5:56 EST WBC 9.8 E9/L RBC 3.7 E12/L LOW HGB 12.1 gm/dL Hct 35.0 % MCV 94.1 fL MCH 32.7 pg MCHC 34.7 gm/dL RDW 16.2 % HI Platelet 195.0 E9/L MPV 9.0 fL Neutro Auto 71.0 % Lymph Auto 23.1 % [place] Auto 4.8 % Eos Auto 0.5 % Basophil Auto 0.6 % Neutro Absolute 6.9 E9/L Lymph Absolute 2.3 E9/L [place] Absolute 0.5 E9/L Eos Absolute 0.0 E9/L Basophil Absolute 0.1 E9/L ABO/Rh Retype Interp A POS 11/08/2024 5:55 EST ABO/Rh Interp A POS ABSC Gel Interp Negative 11/08/2024 5:41 EST Antibody Screen Negative Rubella Immune Hepatitis B Surface Antigen Negative GBS Status Negative RPR Negative HIV Status Negative Sexually Transmitted Diseases None 11/08/2024 5:31 EST U Amph Scr NEGATIVE U Mee Scr NEGATIVE U Benzodia Scr NEGATIVE U Cannab Scr NEGATIVE U Cocaine Scr NEGATIVE U Opiate Scr NEGATIVE U PCP Scr NEGATIVE U Suboxone Scr NEGATIVE U Fentanyl NEGATIVE UA Spec Desc Clean Catch UA Color Light-Yellow UA Clarity Clear UA Spec Grav 1.015 UA pH 7.0 UA Protein Negative mg/dL UA Glucose Negative mg/dL UA Ketones Negative mg/dL UA Bili Negative mg/dL UA Blood Negative mg/dL UA Nitrite Negative mg/dL UA Urobilinogen Negative mg/dL UA Leuk Est 25 Kathe/uL Kathe/uL UA Squam Epithelial 0-2 graded/HPF UA WBC 0-5 graded/HPF UA Bacteria Trace /HPF UA Mucous Trace graded/LPF . Vaginal delivery procedure Preparation & technique - OB PN View 11/08/2024 15:33 EST Monitoring Annotation Primary Provider at bedside 11/08/2024 15:28 EST 2 11/08/2024 15:20 EST Monitoring Annotation Turn to left side 11/08/2024 15:20 EST Monitoring Annotation Pushing; fhr 125 11/08/2024 15:15 EST Heart Rate Monitored 82 bpm Respiratory Rate 18 br/min Systolic Blood Pressure 130 mmHg Diastolic Blood Pressure 73 mmHg Blood Pressure Location Right arm Mean Arterial Pressure, Cuff 92 mmHg SpO2 100 % Oxygen Therapy Room air 11/08/2024 15:06 EST Monitoring Annotation Primary Provider notified 11/08/2024 15:02 EST Monitoring Annotation Vaginal exam 11/08/2024 15:00 EST Heart Rate Monitored 86 bpm Respiratory Rate 18 br/min Systolic Blood Pressure 124 mmHg Diastolic Blood Pressure 63 mmHg Blood Pressure Location Right arm Mean Arterial Pressure, Cuff 83 mmHg SpO2 100 % Oxygen Therapy Room air 11/08/2024 14:49 EST Monitoring Annotation Turn to left side 11/08/2024 14:45 EST Heart Rate Monitored 81 bpm Respiratory Rate 18 br/min Blood Pressure Location Right arm SpO2 100 % Oxygen Therapy Room air 11/08/2024 14:39 EST Monitoring Annotation Turn to right side 11/08/2024 14:30 EST Heart Rate Monitored 82 bpm Respiratory Rate 18 br/min Systolic Blood Pressure 122 mmHg Diastolic Blood Pressure 62 mmHg Blood Pressure Location Right arm Mean Arterial Pressure, Cuff 82 mmHg SpO2 100 % Oxygen Therapy Room air Name of Clinician Contacted Jerson REED DO Reason for Call Other: Updated on pt status. Clinician Contacted Via Personal communication via phone 11/08/2024 14:27 EST Monitoring Annotation Primary Provider notified 11/08/2024 14:15 EST Heart Rate Monitored 67 bpm Respiratory Rate 20 br/min Systolic Blood Pressure (more content not included)...[facility]Comment on above:Result Comment: Electronically Signed By: Jerson REED DO\.br\Date and Time Signed: 11/08/24 16:00 [id number] Hospital Discharge instructions Patient Education 11/06/2024 11:00:52 Signs and Symptoms of Labor Signs and Symptoms of Labor Labor is the body's natural process of moving the baby and the placenta out of the uterus. The process of labor usually starts when the baby is full-term, between 39 and 41 weeks of . Signs and symptoms that you are close to going into labor As your body prepares for labor and the of your baby, you may notice the following symptoms in the weeks and days before true labor starts: Passing a small amount of thick, bloody mucus from your vagina. This is called normal bloody show or losing your mucus plug. This may happen more than a week before labor begins, or right before labor begins, as the opening of the cervix starts to widen (dilate). For some women, the entire mucus plug passes at once. For others, pieces of the mucus plug may gradually pass over several days. Your baby moving (dropping) lower in your pelvis to get into position for (lightening). When this happens, you may feel more pressure on your bladder and pelvic bone and less pressure on your ribs. This may make it easier to breathe. It may also cause you to need to urinate more often and have problems with bowel movements. Having practice contractions, also called [place] contractions or false labor. These occur at irregular (unevenly spaced) intervals that are more than 10 minutes apart. False labor contractions are common after exercise or sexual activity. They will stop if you change position, rest, or drink fluids. These contractions are usually mild and do not get stronger over time. They may feel like: ?A backache or back pain. ?Mild cramps, similar to menstrual cramps. ?Tightening or pressure in your abdomen. Other early symptoms include: Nausea or loss of appetite. Diarrhea. Having a sudden burst of energy, or feeling very tired. Mood changes. Having trouble sleeping. Signs and symptoms that labor has begun Signs that you are in labor may include: Having contractions that come at regular (evenly spaced) intervals and increase in intensity. This may feel like more intense tightening or pressure in your abdomen that moves to your back. ?Contractions may also feel like rhythmic pain in your upper thighs or back that comes and goes at regular intervals. ?If you are delivering for the first time, this change in intensity of contractions often occurs denisse more gradual pace. ?If you have given before, you may notice a more rapid progression of contraction changes. Feeling pressure in the vaginal area. Your water breaking (rupture of membranes). This is when the sac of fluid that surrounds your baby breaks. Fluid leaking from your vagina may be clear or blood-tinged. Labor usually starts within 24 hours of your water breaking, but it may take longer to begin. ?Some people may feel a sudden gush of fluid; others may notice repeatedly damp underwear. Follow these instructions at home: When labor starts, or if your water breaks, call your health care provider or nurse care line. Based on your situation, they will determine when you should go in for an exam. During early labor, you may be able to rest and manage symptoms at home. Some strategies to try at home include: ?Breathing and relaxation techniques. ?Taking a warm bath or shower. ?Listening to music. ?Using a heating pad on the lower back for pain. If directed, apply heat to the area as often as told by your health care provider. Use the heat source that your health care provider recommends, suchas a moist heat pack or a heating pad. ?Place a towel between your skin and the heat source. ?Leave the heat on for 20 30 minutes. ?Remove the heat if your skin turns bright red. This is especially important if you are unable to feel pain, heat, or cold. You have a greater risk of getting burned. Contact a health care provider if: Your labor has started. Your water breaks. You have nausea, vomiting, or diarrhea. Get help right away if: You have painful, regular contractions that are 5 minutes apart or less. Labor starts before you are 37 weeks along in your . You have a fever. You have bright red blood coming from your vagina. You do not feel your baby moving. You have a severe headache with or without vision problems. You have chest pain or shortness of breath. These symptoms may represent a serious problem that is an emergency. Do not wait to see if the symptoms will go away. Get medical help right away. Call your local emergency services (911 in the [place] Do not drive yourself to the hospital. Summary Labor is your body's natural process of moving your baby and the placenta out of your uterus. The process of labor usually starts when your baby is full-term, between 39 and 40 weeks of . When labor starts, or if your water breaks, call your health care provider or nurse care line. Based on your situation, they will determine when you should go in for an exam. This information is not intended to replace advice given to you by your health care provider. Make sure you discuss any questions you have with your health care provider. Document Revised: 02/24/2022 Document Reviewed: 02/24/2022 [facility] Patient Education 2023 [employer]. Follow Up Care 11/06/2024 10:11:49 With:arash garcia Address:Unknown When:11/08/2024 Comments:Induction at [address] [facility] [id number] NoteDischarge Instructions Given Worsening The following Patient Education Materials have been given to the patient: ~~ [facility] History of Present illness Narrative* Jimena Robbins, NEAL - 11/06/2024 9:00 AM EST Reason for Appointment: Patient ID: Jennifer Smith is a 24 y.o. female who presents for Routine Visit Patient presents today for Return OB appointment. MEDICATIONS Current Outpatient Medications Medication Instructions MV-Min-Fe Fum-FA-DHA (/Folic Acid+DHA) 27-0.8-200 MG capsule ProFe 391.3 (180 Fe) MG capsule 1 capsule, Daily ALLERGIES No Known Allergies PROBLEMS Active Ambulatory [...] of Systems: Review of Systems OBJECTIVE Objective: Physical Exam Constitutional: Appearance: Normal appearance. She is well-developed. Genitourinary: Vulva normal. Cardiovascular: Rate and Rhythm: Normal rate and [...] nursing note reviewed. Exam conducted with a acid bath mixer present. Vitals: There is no height or weight on file to calculate BMI. BP: 120/70 Patient's last menstrual period was 01/31/2024. ASSESSMENT & PLAN 40 weeks gestation Patient presents today for a routine obstetrics appointment. Patient is currently 40w0d with a Estimated Date of Delivery: 11/06/24. Patient will have IOL on 11/08/24 @0500 at [facility] via Pit induction. Patient to present to [facility] today for NST/BPP. Consents signed for Induction of Labor to be faxed to [facility] @ [phone]. Patient to return to clinic for postpartumvisit. Documented by Jimena Robbins LPN on behalf of: Jerson Reed DO documented in this encounterSSM Health Cardinal Glennon Children's [id number] Hospital Discharge instructions Follow Up Care 10/31/2024 11:08:24 With:Jerson REED Address: [address] , [place] [address]- Business (1) When:6 weeks Comments:Call Dr if fever>100.5 F, heavy bleedingCall for severe abdominal painCall physician for heavy vaginal bleedingNothing in the vagina for 6 weeksLactation Support Group first Wednesday of the today to schedule your follow up [facility] [id number] History of Present illness Narrative* DONA Velazco - 10/30/2024 9:10 AM EST Reason for Appointment: Patient ID: Jennifer Smith is a 24 y.o. female who presents for Routine Visit Patient presents today for Return OB appointment. MEDICATIONS Current Outpatient Medications Medication Instructions MV-Min-Fe Fum-FA-DHA (/Folic Acid+DHA) 27-0.8-200 MG capsule ProFe 391.3 (180 Fe) MG capsule 1 capsule, Daily ALLERGIES No Known Allergies PROBLEMS Active Ambulatory [...] Hyperlipidemia Father Delmar Breast cancer Maternal Grandmother Cameron Cancer Maternal Grandmother Cameron Diabetes Maternal Grandmother July Migraines Maternal Grandmother July Cancer Paternal Grandfather Lit Hyperlipidemia Paternal Grandmother Venu Hypertension Paternal Grandmother Venu SURGICAL HISTORY Past Surgical History: Procedure Laterality Date WISDOM TOOTH EXTRACTION REVIEW OF SYSTEMS Review of Systems: Review of Systems All other systems reviewed and are negative. OBJECTIVE Objective: Physical Exam Constitutional: Appearance: Normal appearance. Genitourinary: Right Adnexa: not tender and no mass present. Left Adnexa: not tender and no mass present. No cervical discharge. Breasts: Breasts are soft. Right: Normal. Left: Normal. HENT: Head: Normocephalic. Nose: Nose normal. Mouth/Throat: Mouth: Mucous membranes are moist. Cardiovascular: Rate and Rhythm: Normal rate. Pulmonary: Effort: Pulmonary effort is normal. Abdominal: General: Bowel sounds are normal. Palpations: Abdomen is soft. Musculoskeletal: General: Normal range of motion. Cervical back: Normal range of motion. Neurological: General: No focal deficit present. Mental Status: She is alert. Skin: General: Skin is warm and dry. Psychiatric: Mood and Affect: Mood normal. Vitals and nursing note reviewed. Exam conducted with a acid bath mixer present. Vitals: There is no height or weight on file to calculate BMI. BP: 120/72 Patient's last menstrual period was 01/31/2024. ASSESSMENT & PLAN ICD-10-CM 1. Third trimester Z34.93 POCT urinalysis dipstick manually resulted 2. 39 weeks gestation of Z3A.39 Return OB: Patient presents today for a routine obstetrics appointment. Patient is currently 39w0d . Patient states she is doing well but has complaints of being tired due to current . Patient has verbalizes frequent movement. labor precautions was discussed/given and patient was instructed to perform kick counts three times a day. Pt desires to have a cervical check at today's visit. Orders Placed This Encounter Procedures POCT urinalysis dipstick manually resulted Follow Up: Patient is to return to office in 1 week for routine OB appointment. Documented by Deedee Nascimento MA on behalf of: DONA Velazco documented in this encounterSSM Health Cardinal Glennon Children's [id number] History of Present illness Narrative* Clarita Duncan, DIESEL POWERPLANT MECHANIC - 10/19/2024 8:30 AM EST Reason for Appointment: Patient ID: Jennifer Smith is a 24 y.o. female who presents for Routine Visit Patient presents today for Return OB appointment. MEDICATIONS Current Outpatient Medications Medication Instructions MV-Min-Fe Fum-FA-DHA (/Folic Acid+DHA) 27-0.8-200 MG capsule ProFe 391.3 (180 Fe) MG capsule 1 capsule, Daily ALLERGIES No Known Allergies PROBLEMS Active Ambulatory [...] cancer Maternal Grandmother July Cancer Maternal Grandmother Cameron Diabetes Maternal Grandmother Cameron Migraines Maternal Grandmother July Cancer Paternal Grandfather [...] Constitutional: Appearance: Normal appearance. She is well-developed. Genitourinary: Vulva normal. Cardiovascular: Rate and Rhythm: Normal rate and [...] nursing note reviewed. Exam conducted with a acid bath mixer present. Vitals: There is no height or weight on file to calculate BMI. BP: 118/70 Patient's last menstrual period was 01/31/2024. ASSESSMENT & PLAN ICD-10-CM 1. 37 weeks gestation of Z3A.37 POCT urinalysis dipstick manually resulted 2. Third trimester Z34.93 POCT urinalysis dipstick manually resulted Return OB: Patient presents today for a routine obstetrics appointment. Patient is currently 37w3d . Patient states she is doing well but has complaints of being tired due to current . Patient has verbalizes frequent movement. labor precautions was discussed/given and patient was instructed to perform kick counts three times a day. Orders Placed This Encounter Procedures POCT urinalysis dipstick manually resulted Follow Up: Patient is to return to office in 1 week for routine OB appointment. Documented by Clarita Duncan LPN on behalf of: Jerson Reed DO documented in this encounterSSM Health Cardinal Glennon Children's [id number] History of Present illness Narrative* DONA Velazco - 10/11/2024 8:40 AM EST Reason for Appointment: Patient ID: Jennifer Smith is a 24 y.o. female who presents for Routine Visit Patient presents today for Return OB appointment. MEDICATIONS Current Outpatient Medications Medication Instructions MV-Min-Fe Fum-FA-DHA (/Folic Acid+DHA) 27-0.8-200 MG capsule ProFe 391.3 (180 Fe) MG capsule 1 capsule, Daily ALLERGIES No Known Allergies PROBLEMS Active Ambulatory [...] cancer Maternal Grandmother July Cancer Maternal Grandmother Cameron Diabetes Maternal Grandmother July Migraines Maternal Grandmother July Cancer Paternal Grandfather Lit Hyperlipidemia Paternal Grandmother Venu Hypertension Paternal Grandmother Venu SURGICAL HISTORY Past Surgical History: Procedure Laterality Date WISDOM TOOTH EXTRACTION REVIEW OF SYSTEMS Review of Systems: Review of Systems All other systems reviewed and are negative. OBJECTIVE Objective: Physical Exam Constitutional: Appearance: Normal appearance. She is normal weight. HENT: Head: Normocephalic. Cardiovascular: Rate and Rhythm: Normal rate. Pulses: Normal pulses. Pulmonary: Effort: Pulmonary effort is normal. Breath sounds: Normal breath sounds. Abdominal: Palpations: Abdomen is soft. Musculoskeletal: General: Normal range of motion. Neurological: General: No focal deficit present. Mental Status: She is alert and oriented to person, place, and time. Psychiatric: Mood and Affect: Mood normal. Behavior: Behavior normal. Thought Content: Thought content normal. Judgment: Judgment normal. Vitals and nursing note reviewed. Vitals: There is no height or weight on file to calculate BMI. BP: 120/70 Patient's last menstrual period was 01/31/2024. ASSESSMENT & PLAN ICD-10-CM 1. 36 weeks gestation of Z3A.36 POCT urinalysis dipstick manually resulted 2. Third trimester Z34.93 POCT urinalysis dipstick manually resulted CULTURE, GROUP B STREP WITH SUSCEPTIBLITY CULTURE, GROUP B STREP WITH SUSCEPTIBLITY Return OB: Patient presents today for a routine obstetrics appointment. Patient is currently 36w2d . Patient states she is doing well but has complaints of being tired due to current . Patient has verbalizes frequent movement. labor precautions was discussed/given and patient was instructed to perform kick counts three times a day. Orders Placed This Encounter Procedures CULTURE, GROUP B STREP WITH SUSCEPTIBLITY POCT urinalysis dipstick manually resulted Follow Up: Patient is to return to office in 1 week for routine OB appointment. Documented by DONA Velazco on behalf of: DONA Velazco documented in this encounterSSM Health Cardinal Glennon Children's [id number] History of Present illness Narrative* Clarita Perla, NEAL - 09/27/2024 1:20 PM EST Reason for Appointment: Patient ID: Jennifer Smith [...] Hyperlipidemia Father Delmar Breast cancer Maternal Grandmother Cameron Cancer Maternal Grandmother July Diabetes Maternal Grandmother [...] nursing note reviewed. Exam conducted with a acid bath mixer present. Vitals: There is no height or [...] by Clarita Duncan LPN on behalf of: Jerson Reed DO documented in this encounterSSM Health Cardinal Glennon Children's [id number] History of Present illness Narrative* Deedee Nascimento MA - 09/14/2024 9:20 AM EST Reason for Appointment: Patient ID: Jennifer Smith [...] behalf of: DONA Velazco documented in this encounterSSM Health Cardinal Glennon Children's [id number] History of Present illness Narrative* Jimena Robbins LPN - 08/31/2024 8:30 AM EST Reason for Appointment: Patient ID: Jennifer Smith [...] Hyperlipidemia Father Delmar Breast cancer Maternal Grandmother Cameron Cancer Maternal Grandmother Cameron Diabetes Maternal Grandmother Cameron Migraines Maternal Grandmother July Cancer Paternal Grandfather [...] nursing note reviewed. Exam conducted with a acid bath mixer present. Vitals: There is no height or [...] growth scan today. Patient made aware that shewill require Iron Infusions and given order to have Ferratin and Transferrin drawn. Then nursing will be able to prior auth infusion for fewer visits. Patient return to clinic in 2 weeks. Documented by Jimena Robbins LPN on behalf of: Jerson Reed DO documented in this encounterSSM Health Cardinal Glennon Children's [id number] History of Present illness Narrative* Jimena Robbins LPN - 08/17/2024 9:00 AM EDT Reason for Appointment: Patient ID: Jennifer Smith [...] Hyperlipidemia Father Delmar Breast cancer Maternal Grandmother Cameron Cancer Maternal Grandmother July Diabetes Maternal Grandmother [...] nursing note reviewed. Exam conducted with a acid bath mixer present. Vitals: There is no height or [...] by Jimena Robbins LPN on behalf of: Jerson Reed DO documented in this encounterSSM Health Cardinal Glennon Children's [id number] History of Present illness Narrative* DONA Velazco - 08/02/2024 2:30 PM EDT Reason for Appointment: Patient ID: Jennifer Smith [...] cancer Maternal Grandmother July Cancer Maternal Grandmother Cameron Diabetes Maternal Grandmother Cameron Migraines Maternal Grandmother July Cancer Paternal Grandfather [...] behalf of: DONA Velazco documented in this encounterSSM Health Cardinal Glennon Children's [id number] History of Present illness Narrative* DONA Velazco - 07/03/2024 9:30 AM EDT Reason for Appointment: Patient ID: Jennifer Smith [...] Hyperlipidemia Father Delmar Breast cancer Maternal Grandmother Cameron Cancer Maternal Grandmother Cameron Diabetes Maternal Grandmother July Migraines Maternal Grandmother Cameron Cancer Paternal Grandfather Lit Hyperlipidemia Paternal Grandmother [...] Exam Constitutional: Appearance: Normal appearance. She is normal weight. HENT: Head: Normocephalic. Cardiovascular: Rate and Rhythm: Normal rate. Pulses: Normal pulses. Pulmonary: Effort: Pulmonary effort is normal. Breath sounds: Normal breath sounds. Abdominal: Palpations: Abdomen is soft. Musculoskeletal: General: Normal range of motion. Neurological: General: No focal deficit present. Mental Status: She is alert and oriented to person, place, and time. Psychiatric: Mood and Affect: Mood normal. Behavior: Behavior normal. Thought Content: Thought content normal. Judgment: Judgment normal. Vitals and nursing note reviewed. Vitals: There is no height or weight on file to calculate BMI. BP: 120/70 Patient's last menstrual period was 01/31/2024. ASSESSMENT & PLAN ICD-10-CM 1. 22 weeks gestation of Z3A.22 POCT urinalysis dipstick manually resulted 2. Diabetes mellitus screening Z13.1 CBC Glucose tolerance, 1 hour Return OB: Patient presents today for a routine obstetrics appointment. Patient is currently 22w0d . Patient states she is doing well but has complaints of being tired due to current . Orders Placed This Encounter Procedures CBC Glucose tolerance, 1 hour POCT urinalysis dipstick manually resulted Follow Up: Patient is to return to office in 4 week for routine OB appointment. Documented by DONA Velazco on behalf of: DONA Velazco documented in this encounterSSM Health Cardinal Glennon Children's [id number] NoteHNO ID: [id number] Author: Christel Garrison OD Service: ? 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: DAIRY FARM SUPERVISOR Type: Progress Notes Filed: 05/02/2021 12:10 PM [...] Christel Garrison OD May 02, 2021 12:10 [facility] No data available for this section [facility] Evaluation note* Diagnosis Second trimester state, incidental 26 weeks gestation of [facility] Diagnosis 28 weeks gestation of Third trimester state, incidental Size of fetus inconsistent with dates in third trimester Anemia, unspecified type [facility] Diagnosis Third trimester state, incidental [...] [facility]* Diagnosis 36 weeks gestation of Third trimester state, incidental [facility]* Diagnosis 22 weeks gestation of Diabetes mellitus screening Screening for diabetes mellitus [facility]* Diagnosis 37 weeks gestation of Third trimester state, incidental [facility]* Diagnosis Third trimester state, incidental 39 weeks gestation of [facility]* Diagnosis 40 weeks gestation of Irregular heart rate Bradycardic baseline heart rate [facility] Dis[facility] instructions No data available for this section [facility] Progress note No data available for this section [facility] Summary Purpose Family History No Family History Records FoundNo Family History Records FoundNo Family History Records Found No data available for this section No Family History Records Found No data available for this section No data available for this section No Family History Records FoundNo Family History Records FoundNo Family History Records FoundNo Family History Records FoundNo Family History Records FoundNo Family History Records FoundNo Family History Records FoundNo Family History Records FoundNo Family History Records FoundNo Family History Records FoundNo Family History Records FoundNo Family History Records Found Advance Directives No Advanced Directives Records FoundDocuments on File Type Date Recorded Patient Extractor Filler Expl anation Advance Directives and Living Will Power of Public Relations Manager Discharge Instructions * Attachments The following attachments cannot be sent through Care Everywhere. * Chest Contusion (Mosotho) * Rib Contusion (Mosotho) documented in this encounter Assessments Diagnosis Contusion of chest wall, unspecified laterality, subsequent encounter Fall, initial encounter Additional Source Comments INFORMATION SOURCE (unrecogn ized section and content) DATE CREATED AUTHOR 10/15/2018 [facility] DATE CREATED AUTHOR AUTHOR'S ORGANIZ ATION 01/14/2020 [facility] DATE CREATED AUTHOR AUTHOR'S ORGANIZ ATION 11/22/2021 [facility] DATE CREATED AUTHOR AUTHOR'S ORGANIZ ATION 11/09/2024 [facility] DATE CREATED AUTHOR AUTHOR'S ORGANIZ ATION 11/11/2024 [employer] [facility] DATE CREATED AUTHOR AUTHOR'S ORGANIZ ATION 11/14/2024 [employer] [facility] DATE CREATED AUTHOR AUTHOR'S ORGANIZ ATION 11/15/2024 [employer] [facility] DATE CREATED AUTHOR AUTHOR'S ORGANIZ ATION 11/18/2024 [facility] Reason for Visit (unrecogniz ed section and content) Reason Comments Fall Fell on concrete elbert ps. Worried about cracking a rib Reason [...] BE BASED ON THE PRIMARY CLINICAL RECORDS. [facility] [employer] [facility]. provides no warranty or guarantee of the accuracy or completeness of information in this document.
[2024-11-26 22:23] LABS: Bilirubin Urine NEGATIVE (NEGATIVE); Blood Urine LARGE (NEGATIVE); Clarity Urine CLEAR (CLEAR); Color Urine LT. YELLOW (YELLOW); Glucose Urine UA NEGATIVE (NEGATIVE); Ketones Urine NEGATIVE (NEGATIVE); Leukocyte Esterase Urine TRACE (NEGATIVE); Nitrite Urine NEGATIVE (NEGATIVE); Protein Urine TRACE mg/dL (NEG/TRACE); Specific Gravity Urine 1.015 (1.005-1.025); Urobilinogen Urine 0.2 EU/dL (0.2-1.0)
[2024-11-26 22:31] LABS: Bacteria Urine NONE SEEN #/HPF (NONE SEEN); Cast Seen? NONE SEEN #/LPF (NONE SEEN); Crystals Seen? None Seen #/HPF (None Seen); Mucus Urine NONE SEEN (NONE SEEN); Squamous Epithelial Cell Urine FEW #/LPF (NONE/RARE)
[2024-11-26 22:32] LABS: Urine Culture Indicated YES
--- NOTE | 2024-11-26 22:38 | ED_ITS ---
HPI HPI - General Adult General Chief complaint: Back Pain/Injury Stated complaint: FLANK PAIN Time Seen by Provider: 11/26/24 21:51 Source: patient and family ( is here with the patient) Mode of arrival: ambulance Limitations: no limitations History of Present Illness HPI narrative: The patient is a healthy female who presents with right flank pain. She had a normal spontaneous vaginal delivery approximately 2 weeks ago. Since then, she has had some increasing right-sided flank pain. It is constant and worse with sitting for long periods of time. Tylenol makes it better. There is no radiation of the pain. The patient states that it is worsened over the last couple days. It was presumed that the patient had a urinary tract infection. She had some burning with urination. She contacted Dr. Reed. The patient was started empirically on Macrobid for 4 days. The patient states that the burning has subsided but she continues to have the urgency. The patient denies having any history of kidney stones and she has had a workup for kidney stones in the past. Presently her pain is a 1 out of 10. She states that she took Tylenol 1 g prior to arrival. She states Tylenol significantly helps with her pain and she is taking Tylenol every 8 hours. Patient states that she is not having any vaginal odor. There is no suprapubic tenderness. They are not having intercourse yet. The patient does not have any abdominal pain. There is no nausea or vomiting. She did have a fever prior to starting the Macrobid. It was 101.5 max and she has not had a fever since initiating the Macrobid although she is taking Tylenol. She has not had any increase in her bleeding she had 1 clot yesterday and a smaller clot today. Related Data Previous Rx's ?Medication ?Instructions ?Recorded cephalexin 500 mg capsule 500 mg PO Q6H 7 days #28 caps 02/14/24 phenazopyridine 200 mg tablet 200 mg PO TID PRN bladder spasms 02/14/24 (Pyridium) #9 tabs cephalexin 500 mg capsule 500 mg PO Q6H 7 days #28 caps 11/26/24 Allergies Allergy/AdvReac Type Severity Reaction Status Date / Time No Known Drug Allergies Allergy Verified 11/26/24 21:34 Opioid HPI Opioid Management Most Recent Opioid Data: Last Pain Scale 0 02/14/24 14:04 02/14/24 Review of Systems ROS Status of ROS 10 or more systems reviewed and unremark able except as noted in history and below [facility] Social History Smoking status: Never smoker Little interest or pleasure in doing things: not at all Feeling down, depressed, or hopeless: not at all Exam Narrative Exam Narrative: Prior to examining the patient, I have washed with hospital approved and provided Antiseptic Hand Director Records Management and have also applied gloves.? Prior to touching the patient, I asked for consent to examine the patient.? General: Alert and oriented, well nourished, mild distress. Eye: PERRL, EOMI, normal conjunctiva. HENT: Normocephalic, normal hearing, moist oral mucosa, no scleral icterus, no sinus tenderness. Neck: Supple, non-tender, no carotid bruits, no JVD, no lymphadenopathy. Lungs: Clear to auscultation and percussion, non-labored respiration. Heart: Normal rate, regular rhythm, no murmur, gallop or edema. Abdomen: Soft, non-tender, non-distended, normal bowel sounds, no masses. Musculoskeletal: Normal range of motion and strength, no swelling. There is tenderness to the right flank area. Skin: Skin is warm, dry and pink, no rashes or lesions. Neurologic: Awake, alert, and oriented X3, CN II-XII intact. Psychiatric: Cooperative, appropriate mood and affect.? Following the conclusion of the examination, I have washed my hands thoroughly after removing examination gloves. Constitutional Vital Signs, click to edit/add: Last Vital Signs Temp 98.5 F 11/26/24 21:34 Pulse 95 H 11/26/24 21:34 Resp 19 11/26/24 21:34 BP 117/77 11/26/24 21:34 Pulse Ox 98 11/26/24 21:34 O2 Del Method Room Air 11/26/24 21:34 Course Course Hospital Course: In summary, the patient is a healthy 24-year-old female who presents to the emergency department for right flank pain. We are to get a urinary analysis on the patient. This did reveal that the patient had some findings consistent with urinary tract infection especially with her symptoms. Therefore since the patient is on a antibiotic currently we will discontinue the antibiotic and begin an alternative. Reevaluation(s) Reevaluation #1: It appears that the patient has a urinary tract infection. She may have an asc ending infection. She may respond better to a bacteriocidal antibiotic as opposed to a bacteriostatic antibiotic. Sorg and have her discontinue the Macrobid and initiate Keflex. First dose provided in the emergency department. Time: 22:42 Vital Signs Vital signs: Vital Signs Temperature 98.5 F 11/26/24 21:34 Pulse Rate 95 H 11/26/24 21:34 Respiratory Rate 19 11/26/24 21:34 Blood Pressure 117/77 11/26/24 21:34 Pulse Oximetry 98 11/26/24 21:34 Oxygen Delivery Method Room Air 11/26/24 21:34 Temperature 98.5 F 11/26/24 21:34 Pulse Rate 95 H 11/26/24 21:34 Respiratory Rate 19 11/26/24 21:34 Blood Pressure 117/77 11/26/24 21:34 Pulse Oximetry 98 11/26/24 21:34 Oxygen Delivery Method Room Air 11/26/24 21:34 Medical Decision Making MDM Narrative Medical decision making narrative: 24-year-old healthy female presents the emergency department secondary to right flank pain associated with some burning, urgency, and frequency initially. Patient was placed on Macrobid. Patient denies any heavy lifting, moving, twisting. The patient does not have any evidence of endometritis. There is no suprapubic tenderness or order. Patient does not have a history of kidney stones and does not have classic signs or symptoms of a kidney stone such as radiating pain or migrating pain. Patient could have an ascending infection causing an acute urinary tract infection or pyelonephritis. The patient does not have any kasey CVA tenderness. But she does have right sided back pain and the muscles feel ropey. Differential Diagnosis Differential Diagnosis: Endometritis, urinary tract infection, pyelonephritis, kidney stone Medical Records Medical records reviewed: Yes I reviewed the patient's medical records Lab Data Lab results reviewed: Yes I reviewed the patient's lab results Labs: Lab Results 11/26/24 Range/Units 21:24 Urine Color Lt. yellow (YELLOW) Urine Clarity Clear (CLEAR) Urine pH 6.0 (5.0-9.0) Ur Specific [place] 1.015 (1.005-1.025) Urine Protein Trace (NEG/TRACE) mg/dL Urine Glucose (UA) Negative (NEGATIVE) mg/dL Urine Ketones Negative (NEGATIVE) mg/dL Urine Occult Blood Large A (NEGATIVE) Urine Nitrite Negative (NEGATIVE) Urine Bilirubin Negative (NEGATIVE) Urine Urobilinogen 0.2 (0.2-1.0) EU/dL Ur Leukocyte Esterase Trace A (NEGATIVE) Urine RBC 2-5 A (0-2) #/HPF Urine WBC 5-10 A (NONE SEEN) #/HPF Ur Squamous Epith Cells Few A (NONE/RARE) #/LPF Urine Crystals None seen (None Seen) #/HPF Urine Bacteria None seen (NONE SEEN) #/HPF Urine Casts None seen (NONE SEEN) #/LPF Urine Mucus None seen (NONE SEEN) Ur Culture Indicated? Yes Discharge Plan Discharge Chief Complaint: Back Pain/Injury Clinical Impression: UTI (urinary tract infection) Patient Disposition: Home, Self-Care Time of Disposition Decision: 22:43 Condition: Good Mode of Transportation: Private Vehicle Prescriptions / Home Meds: New cephalexin 500 mg capsule 500 mg PO Q6H 7 Days Qty: 28 0RF No Action phenazopyridine [Pyridium] 200 mg tablet 200 mg PO TID PRN (Reason: bladder spasms) Qty: 9 0RF cephalexin 500 mg capsule 500 mg PO Q6H 7 Days Qty: 28 0RF Print Language: Maori Instructions: Urinary Tract Infection in Women (DC) Additional Instructions: Thank you for trusting me with your care today. Please make sure that you get your urine rechecked at the conclusion of your antibiotics. We want to make sure that you are staying well-hydrated. If you develop a fever, new or worsening symptoms, or vaginal odor then please return to the ER soon as possible. Referrals: Physician,Non-Staff, MD [Primary Care Provider] - 1 week Discharge Date/Time: 11/26/24 23:07
[2024-11-26] MEDS: CEPHALEXIN 500 MG CAPSULE PO (22:55)
--- NOTE | 2024-11-26 23:04 | PC.NURSE ---
i gave this patient verbal and written discharge orders along with 1 e-scripts and she voices yes to understanding these. at time of discharge this patient voices no concerns and shows no signs of distress
== END 2024-11-26 23:07 | disposition home or self-care (01) ==
PROVIDERS: Emergency Provider Emergency Medicine
DX: O86.20 Urinary tract infection following delivery, unspecified (principal); N39.0 Urinary tract infection, site not specified
CPT/HCPCS: 81001; 87086; 99283